=== PATIENT | male | born 1955 | race Caucasian/White ===

== ENCOUNTER → 2017-10-09 07:13 | Outpatient (CLI) | payer BC, OTHER, SELFPAY ==
[2017-10-09 08:50] LABS: AST(SGOT) 18 U/L (15-37); Alanine Aminotransfer ALT/SGPT 32 U/L (12-78); Albumin, Serum 3.4 g/dL (3.4-5.0); Alkaline Phosphatase 96 U/L (45-117); Bilirubin, Direct 0.17 mg/dL (0.00-0.30); Cholesterol 131 mg/dL (200); Globulin 3.5 g/dL (2.2-4.2); High Density Lipoprotein 35 mg/dL; Protein, Total 6.9 g/dL (6.4-8.2); Triglycerides 103 mg/dL; Very Low Density Lipoprotein 21 mg/dL (5-40)
== END ==
PROVIDERS: Family Provider Family Medicine; PCP Family Medicine; Visit Provider Internal Medicine Cardiovascular Disease
DX: E78.5 Hyperlipidemia, unspecified (principal)
CPT/HCPCS: 36415; 80061; 80076

== ENCOUNTER → 2018-01-04 10:48 | Outpatient (CLI) | payer BC, OTHER, SELFPAY ==
[2018-01-04 12:46] LABS: Glucose 145 mg/dL (74-106); PSA,Total - Annual Screen 2.37 ng/mL (0.00-4.00)
[2018-01-04 13:07] LABS: Hemoglobin A1c 7.8 % (4.2-6.3)
== END ==
PROVIDERS: Family Provider Family Medicine; PCP Family Medicine; Visit Provider Family Medicine
DX: E11.9 Type 2 diabetes mellitus without complications (principal); Z12.5 Encounter for screening for malignant neoplasm of prostate
CPT/HCPCS: 36415; 82947; 83036; 84153; G0103

== ENCOUNTER 2018-03-28 08:05 | Day surgery (SDC) | payer BC, OTHER, SELFPAY ==
[2018-03-28 08:25] LABS: Bedside Glucose 209 mg/dL (70-110)
[2018-03-28 08:30] VITALS: BP 105/64; PULSE 68; RESP 18; TEMP 36.3; O2SAT 95; BMI 53.4
--- NOTE | 2018-03-28 09:30 | RAD_ITS ---
PROCEDURE: Caudal block. DATE OF EXAMINATION: March 28, 2018 INDICATION: Male, 62 years old. Low back pain. FLUOROSCOPY TIME (if supplied): (0:07) minutes/seconds A caudal block was performed by the pain management physician. A spinal needle is seen overlying the posterior midportion of the sacrum. RAD/Fluor Guidance for Spine Inj IMPRESSION: Intraoperative imaging provided for caudal block. Electronically Signed: Abdirizak Markham MD at 15:39 EDT Tel [phone], Service support ,
[2018-03-28] MEDS: MethylPREDNISolone Acetate 80 MG/ML Vial (09:51)
[2018-03-28] MEDS: Bupivacaine 0.25% 30 ML Vial (09:51)
[2018-03-28 10:03] VITALS: BP 105/64; BP 112/65; PULSE 74; RESP 16; TEMP 36.8; O2SAT 94
[2018-03-28 10:05] VITALS: BP 105/64; BP 115/70; PULSE 74; RESP 16; O2SAT 93
[2018-03-28 10:10] VITALS: BP 105/64; BP 111/71; PULSE 72; RESP 16; O2SAT 93
[2018-03-28 10:18] VITALS: BP 105/64; BP 119/72; PULSE 71; RESP 16; TEMP 36.2; O2SAT 94
[2018-03-28 10:44] VITALS: BP 105/64
--- NOTE | 2018-03-28 11:28 | PCM.OPRPT ---
Problem List (1) Degeneration of intervertebral disc of lumbosacral region Status: Chronic (2) Radiculopathy of lumbosacral region Status: Chronic (3) Lumbosacral stenosis Status: Chronic Report of Operation Date of Procedure: 03/28/18 Pre-Operative Diagnosis: Lumbosacral radiculopathy, lumbosacral degenerative disc disease, lumbar sacral spinal stenosis Post-Operative Diagnosis: Lumbosacral radiculopathy, lumbosacral degenerative disc disease, lumbosacral spinal stenosis Surgery/Procedure Performed:: Diagnostic/therapeutic caudal epidural steroid injection Description of Surgical Findings:: PROCEDURE: Diagnostic/therapeutic caudal epidural steroid injection PREOPERATIVE DIAGNOSIS: Lumbosacral radiculopathy, lumbosacral degenerative disc disease, lumbosacral spinal stenosis POSTOPERATIVE DIAGNOSIS: Lumbosacral radiculopathy, lumbosacral degenerative disc disease, lumbosacral spinal stenosis ANESTHESIA: MAC COMPLICATIONS: None BLOOD LOSS: Minimal PROCEDURE IN DETAIL: History and physical today was reviewed. Risks and benefits of the procedure were explained. The patient understood, agreed to our procedure, and informed consent was obtained. IV inserted per routine protocol. The patient was taken to the operating room, placed in a prone position with a pillow positioned underneath the abdomen. The lower back and tailbone area was prepped and draped in a sterile fashion using iodine ?3 under fluoroscopy guidance on the lateral view the caudal space was identified skin and subcutaneous tissue anesthetized approximately 3 cc of 1% lidocaine using a 25-gauge regular needle under direct visualization with fluoroscopy on the lateral approach using a 22-gauge 3-1/2 inch spinal needle the needle was advanced via the skin through the sacral hiatus tip of the needle passed through the sacrococcygeal ligament advanced approximately S4 area after negative aspiration for blood or CSF a total of 3 cc of contrast were injected to confirm correct placement of the needle as well as cephalad spread the spread was followed to approximately L5 area after confirmation of AP as well as lateral view and repeated negative aspiration a total of 15 cc of preservative-free 0.125% Marcaine with 80 mg of Depo-Medrol were injected easily the needle was then removed intact patient experienced no sinus symptoms intrathecal or intravascular injection patient experienced no paresthesia the procedure was completed without any apparent difficulty any complication the patient appeared to tolerate well. ASSESSMENT AND PLAN: This is a 62-year-old male with lumbosacral radiculopathy, lumbosacral degenerative disc disease, lumbosacral spinal stenosis status post diagnostic/therapeutic caudal epidural steroid injection. The patient will continue her current medications. The patient will follow in approximately 2 weeks for possible repeat of the procedure if indicated.
--- NOTE | 2018-03-28 11:31 | OP.PCM_ITS ---
Problem List (1) Degeneration of intervertebral disc of lumbosacral region Status: Chronic (2) Radiculopathy of lumbosacral region Status: Chronic (3) Lumbosacral stenosis Status: Chronic Report of Operation Date of Procedure: 03/28/18 Pre-Operative Diagnosis: Lumbosacral radiculopathy, lumbosacral degenerative disc disease, lumbar sacral spinal stenosis Post-Operative Diagnosis: Lumbosacral radiculopathy, lumbosacral degenerative disc disease, lumbosacral spinal stenosis Surgery/Procedure Performed:: Diagnostic/therapeutic caudal epidural steroid injection Description of Surgical Findings:: PROCEDURE: Diagnostic/therapeutic caudal epidural steroid injection PREOPERATIVE DIAGNOSIS: Lumbosacral radiculopathy, lumbosacral degenerative disc disease, lumbosacral spinal stenosis POSTOPERATIVE DIAGNOSIS: Lumbosacral radiculopathy, lumbosacral degenerative disc disease, lumbosacral spinal stenosis ANESTHESIA: MAC COMPLICATIONS: None BLOOD LOSS: Minimal PROCEDURE IN DETAIL: History and physical today was reviewed. Risks and benefits of the procedure were explained. The patient understood, agreed to our procedure, and informed consent was obtained. IV inserted per routine protocol. The patient was taken to the operating room, placed in a prone position with a pillow positioned underneath the abdomen. The lower back and tailbone area was prepped and draped in a sterile fashion using iodine ?3 under fluoroscopy guidance on the lateral view the caudal space was identified skin and subcutaneous tissue anesthetized approximately 3 cc of 1 % lidocaine using a 25-gauge regular needle under direct visualization with fluoroscopy on the lateral approach using a 22-gauge 3-1/2 inch spinal needle the needle was advanced via the skin through the sacral hiatus tip of the needle passed through the sacrococcygeal ligament advanced approximately S4 area after negative aspiration for blood or CSF a total of 3 cc of contrast were injected to confirm correct placement of the needle as well as cephalad spread the spread was followed to approximately L5 area after confirmation of AP as well as lateral view and repeated negative aspiration a total of 15 cc of preservative-free 0.125% Marcaine with 80 mg of Depo-Medrol were injected easily the needle was then removed intact patient experienced no sinus symptoms intrathecal or intravascular injection patient experienced no paresthesia the procedure was completed without any apparent difficulty any complication the patient appeared to tolerate well. ASSESSMENT AND PLAN: This is a 62-year-old male with lumbosacral radiculopathy, lumbosacral degenerative disc disease, lumbosacral spinal stenosis status post diagnostic/ therapeutic caudal epidural steroid injection. The patient will continue her current medications. The patient will follow in approximately 2 weeks for possible repeat of the procedure if indicated.
== END 2018-03-28 10:45 | disposition home or self-care (01) ==
LOC: SDC 08:06 → AC 08:07
PROVIDERS: Family Provider Family Medicine; PCP Family Medicine; Visit Provider Anesthesiology Pain Medicine
PROC: 3E0S3BZ Introduction of Anesthetic Agent into Epidural Space, Percutaneous Approach (ICD-10-PCS; CPT 62282; principal; 2018-03-28 09:25)
DX: M51.17 Intervertebral disc disorders with radiculopathy, lumbosacral region (principal); M48.07 Spinal stenosis, lumbosacral region; I25.10 Atherosclerotic heart disease of native coronary artery without angina pectoris; E11.9 Type 2 diabetes mellitus without complications; E78.00 Pure hypercholesterolemia, unspecified; K21.9 Gastro-esophageal reflux disease without esophagitis; I73.9 Peripheral vascular disease, unspecified; M47.817 Spondylosis without myelopathy or radiculopathy, lumbosacral region; M46.96 Unspecified inflammatory spondylopathy, lumbar region; M79.1 Myalgia; Z79.899 Other long term (current) drug therapy; Z79.82 Long term (current) use of aspirin
CPT/HCPCS: 64483; 77003; 82962; J7120; J3490

== ENCOUNTER 2018-05-02 08:11 | Day surgery (SDC) | payer BC, OTHER, SELFPAY ==
[2018-05-02 08:35] VITALS: BP 133/84; PULSE 68; RESP 16; TEMP 36.4; O2SAT 98; BMI 53.9
[2018-05-02 08:46] LABS: Bedside Glucose 193 mg/dL (70-110)
[2018-05-02] MEDS: MethylPREDNISolone Acetate 80 MG/ML Vial (09:06)
[2018-05-02] MEDS: Bupivacaine 0.25% 30 ML Vial (09:06)
[2018-05-02 09:15] VITALS: BP 119/69; BP 133/84; PULSE 76; RESP 16; TEMP 37.3; O2SAT 97
[2018-05-02 09:20] VITALS: BP 123/61; BP 133/84; PULSE 72; RESP 16; O2SAT 95
[2018-05-02 09:25] VITALS: BP 120/68; BP 133/84; PULSE 71; RESP 16; O2SAT 95
[2018-05-02 09:30] VITALS: BP 132/80; BP 133/84; PULSE 70; RESP 16; TEMP 37.3; O2SAT 95
[2018-05-02 09:41] VITALS: BP 133/84
--- NOTE | 2018-05-02 11:22 | PCM.OPRPT ---
Problem List (1) Spondylosis of lumbosacral region without myelopathy or radiculopathy Status: Chronic (2) Degeneration of intervertebral disc of lumbosacral region Status: Chronic Report of Operation Date of Procedure: 05/02/18 Pre-Operative Diagnosis: Lumbosacral spondylosis, lumbosacral degenerative disc disease, lumbar facet arthropathy Post-Operative Diagnosis: Lumbosacral spondylosis, lumbosacral degenerative disc disease, lumbar facet arthropathy Surgery/Procedure Performed:: Left-sided lumbar facet steroid injection L3, L4, L5, S1 Description of Surgical Findings:: PROCEDURE: Left-sided lumbar facet steroid injection L3, L4, L5, S1 PREOPERATIVE DIAGNOSIS: Lumbosacral spondylosis, lumbosacral degenerative disc disease, lumbar facet arthropathy POSTOPERATIVE DIAGNOSIS: Lumbosacral spondylosis, lumbosacral degenerative disc disease, lumbar facet arthropathy ANESTHESIA: MAC COMPLICATIONS: None BLOOD LOSS: Minimal PROCEDURE IN DETAIL: History and physical today was reviewed. Risks and benefits of the procedure were explained. The patient understood, agreed to our procedure, and informed consent was obtained. IV inserted per routine protocol. The patient was taken to the operating room, placed in a prone position with a pillow positioned underneath the abdomen. The left side of his lower back was prepped and draped in a sterile fashion using iodine x3. Under fluoroscopy guidance, on AP view, L3 through S1 vertebral bodies were visualized. Skin and subcutaneous tissues were anesthetized with approximately 5 mL of 1% lidocaine using a 25-gauge regular needle. Under direct visualization with fluoroscopy at approximately 25-degree angle, starting on the left L3, ending on the left S1, passing through the L4-L5 using a 22-gauge 5-inch spinal needle, the needle was advanced via the skin. The tip of the needle was maneuvered and directed towards the superior and medial gutter of the transverse process at the vicinity of the medial branch. Once the tip of the needle was in contact with the bone, the needle pulled approximately 2 mm off the bone. After negative aspiration of blood with CSF and confirmation of AP as well as oblique view, a total of 8 mL of preservative-free 0.25% Marcaine with 80 mg of Depo-Medrol was injection in divided doses between those 4 levels. The needles were then removed intact. The patient experienced no signs or symptoms intrathecal, intravascular injection. The patient experienced no paraesthesia. The procedure was completed without any apparent difficult, any complication. The patient appeared to tolerate well. ASSESSMENT AND PLAN: This is a 62-year-old Male with Lumbosacral spondylosis, lumbosacral degenerative disc disease, lumbar facet arthropathy, status post left-sided lumbar facet steroid injection [id number] S1. The patient will continue his current medications. The patient will follow in approximately 2 weeks for possible repeat of the procedure if indicated.
== END 2018-05-02 09:58 | disposition home or self-care (01) ==
LOC: SDC 08:12 → AC 08:13
PROVIDERS: Family Provider Family Medicine; PCP Family Medicine; Visit Provider Anesthesiology Pain Medicine
PROC: 3E0T3BZ Introduction of Anesthetic Agent into Peripheral Nerves and Plexi, Percutaneous Approach (ICD-10-PCS; CPT 64493; principal; 2018-05-02 09:05)
DX: M47.817 Spondylosis without myelopathy or radiculopathy, lumbosacral region (principal); M51.37 Other intervertebral disc degeneration, lumbosacral region; M48.07 Spinal stenosis, lumbosacral region; M46.96 Unspecified inflammatory spondylopathy, lumbar region; I25.10 Atherosclerotic heart disease of native coronary artery without angina pectoris; E11.9 Type 2 diabetes mellitus without complications; E78.00 Pure hypercholesterolemia, unspecified; I45.10 Unspecified right bundle-branch block; K21.9 Gastro-esophageal reflux disease without esophagitis; I73.9 Peripheral vascular disease, unspecified; M19.90 Unspecified osteoarthritis, unspecified site; I10 Essential (primary) hypertension; E66.01 Morbid (severe) obesity due to excess calories; Z68.43 Body mass index [BMI] 50.0-59.9, adult; Z87.442 Personal history of urinary calculi; Z95.5 Presence of coronary angioplasty implant and graft; Z79.82 Long term (current) use of aspirin; Z79.84 Long term (current) use of oral hypoglycemic drugs; Z79.899 Other long term (current) drug therapy
CPT/HCPCS: 01992; 64493; 64494; 64495; 64483; 72100; 82962; J7120

== ENCOUNTER → 2018-05-14 09:45 | Outpatient (CLI) | payer BC, OTHER, SELFPAY ==
[2018-05-14 11:35] LABS: AST(SGOT) 15 U/L (15-37); Alanine Aminotransfer ALT/SGPT 30 U/L (16-61); Albumin, Serum 3.3 g/dL (3.2-5.0); Alkaline Phosphatase 103 U/L (45-117); Bilirubin, Direct 0.15 mg/dL (0.00-0.30); Cholesterol 136 mg/dL (200); Globulin 3.4 g/dL (2.2-4.2); High Density Lipoprotein 41 mg/dL; Protein, Total 6.7 g/dL (6.4-8.2); Triglycerides 94 mg/dL; Very Low Density Lipoprotein 19 mg/dL (5-40)
== END ==
PROVIDERS: Family Provider Family Medicine; PCP Family Medicine; Visit Provider Internal Medicine Cardiovascular Disease
DX: E78.5 Hyperlipidemia, unspecified (principal); Z79.899 Other long term (current) drug therapy
CPT/HCPCS: 36415; 80061; 80076

== ENCOUNTER → 2018-07-30 09:55 | Outpatient (CLI) | payer BC, OTHER, SELFPAY ==
[2018-07-30 09:55] VITALS: BMI 36.8
[2018-07-30 11:24] LABS: Anion Gap 7 (5-15); BUN 18 mg/dL (7-18); BUN/Creat Ratio 16.2 RATIO (10-20); Calcium,Total 8.4 mg/dL (8.5-10.1); Chloride 106 mmol/L (98-107); Cholesterol 128 mg/dL (200); Creatinine, Serum 1.11 mg/dL (0.70-1.30); EST Glomerular Filtration Rate 71 mL/min (>60); Est Glom Filt Rate - Afr Amer 86 mL/min (>60); Glucose 223 mg/dL (74-106); High Density Lipoprotein 34 mg/dL; Potassium 4.3 mmol/L (3.5-5.1); Sodium Level 138 mmol/L (136-145); Triglycerides 128 mg/dL; Very Low Density Lipoprotein 26 mg/dL (5-40)
[2018-07-30 11:28] LABS: Hemoglobin A1c 9.5 % (4.2-6.3)
== END ==
PROVIDERS: Family Provider Family Medicine; PCP Family Medicine; Referring Provider Family Medicine; Visit Provider Family Medicine
DX: E78.00 Pure hypercholesterolemia, unspecified (principal); E11.9 Type 2 diabetes mellitus without complications
CPT/HCPCS: 36415; 80048; 80061; 83036

== ENCOUNTER → 2019-01-21 08:54 | Outpatient (CLI) | payer BC, OTHER, SELFPAY ==
[2018-07-30 09:55] VITALS: BMI 36.8
[2019-01-21 10:42] LABS: Anion Gap 11 (5-15); BUN 18 mg/dL (7-18); BUN/Creat Ratio 16.5 RATIO (10-20); Calcium,Total 8.5 mg/dL (8.5-10.1); Chloride 103 mmol/L (98-107); Cholesterol 122 mg/dL (200); Creatinine, Serum 1.09 mg/dL (0.70-1.30); EST Glomerular Filtration Rate 72 mL/min (>60); Est Glom Filt Rate - Afr Amer 87 mL/min (>60); Glucose 190 mg/dL (74-106); Hemoglobin A1c 9.4 % (4.2-6.3); High Density Lipoprotein 36 mg/dL; PSA,Total - Annual Screen 1.56 ng/mL (0.00-4.00); Potassium 4.4 mmol/L (3.5-5.1); Sodium Level 137 mmol/L (136-145); Triglycerides 101 mg/dL; Very Low Density Lipoprotein 20 mg/dL (5-40)
== END ==
PROVIDERS: Family Provider Family Medicine; PCP Family Medicine; Referring Provider Family Medicine; Visit Provider Family Medicine
DX: I25.10 Atherosclerotic heart disease of native coronary artery without angina pectoris (principal); E11.9 Type 2 diabetes mellitus without complications; Z12.5 Encounter for screening for malignant neoplasm of prostate
CPT/HCPCS: 36415; 80048; 80061; 83036; 84153; G0103

== ENCOUNTER → 2019-08-14 09:59 | Outpatient (CLI) | payer OTHER, SELFPAY ==
[2019-05-25 16:07] VITALS: BMI 52.5
[2019-08-14 10:58] LABS: Hemoglobin A1c 6.7 % (4.2-6.3)
[2019-08-14 11:01] LABS: Anion Gap 7 (5-15); BUN 19 mg/dL (7-18); BUN/Creat Ratio 16.2 RATIO (10-20); Calcium,Total 8.7 mg/dL (8.5-10.1); Chloride 110 mmol/L (98-107); Cholesterol 144 mg/dL (200); Creatinine, Serum 1.17 mg/dL (0.70-1.30); EST Glomerular Filtration Rate 67 mL/min (>60); Est Glom Filt Rate - Afr Amer 80 mL/min (>60); Glucose 132 mg/dL (74-106); High Density Lipoprotein 39 mg/dL; Potassium 4.1 mmol/L (3.5-5.1); Sodium Level 141 mmol/L (136-145); Triglycerides 125 mg/dL; Very Low Density Lipoprotein 25 mg/dL (5-40)
== END ==
PROVIDERS: Family Medicine; Family Provider Family Medicine; PCP Family Medicine; Referring Provider Family Medicine; Visit Provider Family Medicine
DX: E78.00 Pure hypercholesterolemia, unspecified (principal); E11.9 Type 2 diabetes mellitus without complications
CPT/HCPCS: 36415; 80048; 80061; 83036

== ENCOUNTER → 2020-02-14 10:08 | Outpatient (CLI) | payer OTHER, SELFPAY ==
[2019-05-25 16:07] VITALS: BMI 52.5
[2020-02-14 12:58] LABS: Microalbumin,Random Urine 50.4 mg/L (NO RANGE EST.); Microalbumin:Creatinine Ratio 27.5 mg/g CRE (<30 mg/g CRE)
[2020-02-14 12:59] LABS: ALB/GLOB Ratio 0.9 RATIO (0.9-2.4); AST(SGOT) 14 U/L (15-37); Alanine Aminotransfer ALT/SGPT 23 U/L (16-61); Albumin, Serum 3.3 g/dL (3.2-5.0); Alkaline Phosphatase 99 U/L (45-117); Anion Gap 9 (5-15); BUN 18 mg/dL (7-18); BUN/Creat Ratio 15.1 RATIO (10-20); Calcium,Total 8.9 mg/dL (8.5-10.1); Chloride 104 mmol/L (98-107); Creatinine, Serum 1.19 mg/dL (0.70-1.30); EST Glomerular Filtration Rate 65 mL/min (>60); Est Glom Filt Rate - Afr Amer 79 mL/min (>60); Globulin 3.8 g/dL (2.2-4.2); Glucose 120 mg/dL (74-106); Potassium 4.1 mmol/L (3.5-5.1); Protein, Total 7.1 g/dL (6.4-8.2); Sodium Level 137 mmol/L (136-145)
[2020-02-14 13:08] LABS: Hemoglobin A1c 6.6 % (3.8-5.6)
== END ==
PROVIDERS: PCP Family Medicine; Visit Provider Family Medicine
DX: E11.9 Type 2 diabetes mellitus without complications (principal)
CPT/HCPCS: 36415; 80053; 82043; 82570; 83036

== ENCOUNTER → 2020-07-29 10:53 | Outpatient (CLI) | payer OTHER, SELFPAY ==
[2020-05-28 10:35] VITALS: BMI 53.6
--- NOTE | 2020-07-29 10:54 | ECHOCS_ITS ---
Reason For Study: dyspnea/sob Procedure This was a 2D Doppler, Color Flow transthoracic echocardiogram. The study was technically difficult. Due to mbody habitus. Contrast injection was performed. Exam performed in department. Left Ventricle Normal LV size. Mild concentric left ventricular hypertrophy. Left ventricular systolic function is normal. The estimated ejection fraction is 65 %. No regional wall motion abnormalities noted. Right Ventricle Normal RV size. Normal systolic function. Atria The left atrium is mildly enlarged. Normal right atrium. Mitral Valve Normal mitral valve. Tricuspid Valve Normal tricuspid valve. Aortic Valve The aortic valve is not well visualized. Great Vessels Normal aortic root. The pulmonary artery is normal size. Normal inferior vena cava. Pericardium/Pleural No pericardial effusion. Medication 22 gauge I.V. with prn adaptor inserted into right arm. Diluted definity 3.0ml given slow IV push to enhance endocardial definition. MMode/2D Measurements & Calculations LVIDd: 5.4 cm IVSd: 1.2 cm Ao root diam: 3.4 cm LVIDs: 3.9 cm LVPWd: 1.2 cm RVDd: 3.2 cm FS: 28.9 % LAV(MOD-bp): 66.9 ml LA A4 area: 21.9 cm2 LA dimension(2D): 4.2 cm LAV(MOD-bp) Indexed: 25.1 ml/m2 LAV(MOD-sp2): 64.4 ml LAV(MOD-sp4): 64.8 ml RA A4 area: 19.3 cm2 Time Measurements MV dec time: 0.16 sec Doppler Measurements & Calculations MV E max nikolas: 97.4 cm/sec Lat Peak E' Nikolas: 8.8 cm/sec Med Peak E' Nikolas: 9.2 cm/sec MV A max nikolas: 69.4 cm/sec E/E' lat: 11.0 E/E' med: 10.6 MV E/A: 1.4 Ao V2 max: 137.6 cm/sec LV V1 max: 96.7 cm/sec PA V2 max: 94.2 cm/sec Ao max P.6 mmHg LV V1 max P.7 mmHg Interpretation Summary Normal LV size. Left ventricular systolic function is normal. The estimated ejection fraction is 65 %. Mild concentric left ventricular hypertrophy. The left atrium is mildly enlarged. Contrast injection was performed. Ordering Physician: Eliseo Oconnor Referring Physician: Saman Wilcox Performed By: Emi Griggs, YOSEF, RVT
== END ==
PROVIDERS: PCP Family Medicine; Referring Provider Internal Medicine Cardiovascular Disease; Visit Provider Internal Medicine Cardiovascular Disease
DX: R06.02 Shortness of breath (principal); R06.00 Dyspnea, unspecified; I25.10 Atherosclerotic heart disease of native coronary artery without angina pectoris; I45.10 Unspecified right bundle-branch block; E78.00 Pure hypercholesterolemia, unspecified; I10 Essential (primary) hypertension; Z95.5 Presence of coronary angioplasty implant and graft
CPT/HCPCS: 93306; Q9957; A4216; C8929

== ENCOUNTER → 2020-09-17 09:19 | Outpatient (CLI) | payer OTHER, SELFPAY ==
[2020-05-28 10:35] VITALS: BMI 53.6
[2020-09-17 12:49] LABS: AST(SGOT) 15 U/L (15-37); Alanine Aminotransfer ALT/SGPT 26 U/L (16-61); Albumin, Serum 3.5 g/dL (3.2-5.0); Alkaline Phosphatase 94 U/L (45-117); Anion Gap 9 (5-15); BUN 19 mg/dL (7-18); BUN/Creat Ratio 15.4 RATIO (10-20); Calcium,Total 8.8 mg/dL (8.5-10.1); Chloride 105 mmol/L (98-107); Cholesterol 127 mg/dL (200); Creatinine, Serum 1.23 mg/dL (0.70-1.30); EST Glomerular Filtration Rate 63 mL/min (>60); Est Glom Filt Rate - Afr Amer 76 mL/min (>60); Globulin 3.4 g/dL (2.2-4.2); Glucose 118 mg/dL (74-106); High Density Lipoprotein 36 mg/dL; Potassium 4.2 mmol/L (3.5-5.1); Protein, Total 6.9 g/dL (6.4-8.2); Sodium Level 137 mmol/L (136-145); Triglycerides 115 mg/dL; Very Low Density Lipoprotein 23 mg/dL (5-40)
[2020-09-17 12:52] LABS: Hemoglobin A1c 6.3 % (3.8-5.6)
== END ==
PROVIDERS: PCP Family Medicine; Referring Provider Family Medicine; Visit Provider Family Medicine
DX: E11.9 Type 2 diabetes mellitus without complications (principal)
CPT/HCPCS: 36415; 80053; 80061; 83036

== ENCOUNTER → 2021-04-30 11:36 | Outpatient (CLI) | payer OTHER, SELFPAY ==
[2021-04-30 15:11] LABS: Absolute Lymphocyte Count 1.19 X10^3/uL (0.83-4.51); Absolute Neutrophil Count 5.1 X10^3/uL (2.0-7.7); Basophil# 0.04 X10^3/uL; Basophil% 0.5 % (0-1); Eosinophil# 0.38 X10^3/uL; Eosinophils% 5.2 % (0-5); Hematocrit 37.2 % (40-54); Hemoglobin 11.7 g/dL (13.0-16.5); Lymphocyte # 1.19 X10^3/ul (0.83-4.51); Lymphocyte % 16.2 % (19-41); Mean Corp Hgb Conc 31.5 g/dL (32-36); Mean Corpuscular Hgb 28.5 pg (27.0-32.0); Mean Corpuscular Volume 90.5 fL (80-94); Mean Platelet Vol. 11.9 fl (6.2-12.0); Monocyte# 0.58 X10^3/uL; Monocyte% 7.9 % (0-10); NRBC Flagged by Analyzer 0 % (0-5); Neutrophil # 5.12 X10^3/uL (2.7-7.7); Neutrophil % 69.8 % (47-70); Platelet Count 196 K/mm3 (150-450); RBC Distribution Width CV 15.3 % (11.6-14.6); RBC Distribution Width SD 50.4 fl (35.1-43.9); Red Blood Count 4.11 M/mm3 (4.6-6.2); White Blood Count 7.3 K/mm3 (4.4-11.0)
[2021-04-30 15:39] LABS: Microalbumin:Creatinine Ratio 47.2 mg/g CRE (<30 mg/g CRE)
[2021-04-30 15:46] LABS: AST(SGOT) 17 U/L (15-37); Alanine Aminotransfer ALT/SGPT 27 U/L (16-61); Albumin, Serum 3.4 g/dL (3.2-5.0); Alkaline Phosphatase 88 U/L (45-117); Anion Gap 9 (5-15); BUN 23 mg/dL (7-18); BUN/Creat Ratio 20.2 RATIO (10-20); Calcium,Total 8.5 mg/dL (8.5-10.1); Chloride 106 mmol/L (98-107); Cholesterol 136 mg/dL (200); Creatinine, Serum 1.14 mg/dL (0.70-1.30); EST Glomerular Filtration Rate 68 mL/min (>60); Est Glom Filt Rate - Afr Amer 82 mL/min (>60); Globulin 3.5 g/dL (2.2-4.2); Glucose 102 mg/dL (74-106); High Density Lipoprotein 37 mg/dL; Potassium 4.4 mmol/L (3.5-5.1); Protein, Total 6.9 g/dL (6.4-8.2); Sodium Level 137 mmol/L (136-145); Thyroid Stim Hormone (TSH) 0.89 uIU/mL (0.358-3.74); Triglycerides 111 mg/dL; Very Low Density Lipoprotein 22 mg/dL (5-40)
[2021-04-30 16:13] LABS: Hemoglobin A1c 6.2 % (3.8-5.6)
== END ==
PROVIDERS: PCP Family Medicine; Referring Provider Family Medicine; Visit Provider Family Medicine
DX: E11.9 Type 2 diabetes mellitus without complications (principal); Z12.5 Encounter for screening for malignant neoplasm of prostate
CPT/HCPCS: 36415; 80053; 80061; 82043; 82570; 83036; 84153; 84443; 85025; G0103

== ENCOUNTER → 2021-06-16 16:38 | Outpatient (CLI) | payer OTHER, SELFPAY | LOC: MFPLAB 16:42 → LABSPEC 16:57 | PROVIDERS: PCP Family Medicine; Referring Provider Family Medicine; Visit Provider Family Medicine | DX: U07.1 COVID-19 (principal) | CPT/HCPCS: 87635; U0005; U0003 ==

== ENCOUNTER 2021-06-18 12:15 | Outpatient (CLI) | payer OTHER, SELFPAY ==
[2021-06-18 12:30] VITALS: BP 125/58; PULSE 75; RESP 18; TEMP 36.6; O2SAT 98; BMI 53.1
[2021-06-18] MEDS: 0.9% Saline Lock 10 ML Syringe IV (12:46)
[2021-06-18 13:35] VITALS: BP 114/59; PULSE 74; RESP 16; TEMP 36.9; O2SAT 96
[2021-06-18 14:17] VITALS: BP 111/49; PULSE 73; RESP 16; TEMP 37.1; O2SAT 97
== END 2021-06-18 14:24 | disposition home or self-care (01) ==
LOC: MS3OUT 12:15 → MS3 12:16
PROVIDERS: PCP Family Medicine; Referring Provider Nurse Practitioner Adult Health; Visit Provider Nurse Practitioner Adult Health
DX: Z23 Encounter for immunization (principal); U07.1 COVID-19
CPT/HCPCS: J7050; M0243; A4216; Q0244

== ENCOUNTER → 2021-07-28 07:31 | Outpatient (CLI) | payer OTHER, SELFPAY ==
--- NOTE | 2021-07-28 11:43 | STRESSREP ---
Stress Test Report Pharmacologic myocardial perfusion stress test. 66-year-old male with a history of chest pain. Resting EKG demonstrates normal sinus rhythm with a right bundle branch block and a rate of 83 bpm. Resting blood pressure is 130/84 mmHg. 0.4 mg of regadenoson was infused per usual protocol followed by rapid intravenous and flush injection continuous EKG monitoring was performed. The maximum heart rate attained was 102 bpm which was 66% of max impact at heart rate the maximum workload was 1 metabolic equivalent. At rest there were no ST or T wave changes noted to suggest abnormal flow reserve and at peak infusion nonspecific ST changes were noted with did not meet the criteria for ischemia. No clinical angina was noted. The final blood pressure was 126/64 mmHg. Myocardial perfusion protocol. 15.0 mCi of technetium 99m sestamibi was injected at rest. 0.4 mg of regadenoson was infused per usual protocol. At peak infusion 44.9 mCi of technetium 99m sestamibi was injected stress images were obtained stress and rest images were reconstructed and compared in the short axis vertical long and horizontal long axis. Gated images were also obtained. Perfusion SPECT analysis: Review of the stress images demonstrate normal uptake of tracer noted in all areas of the myocardium. The resting images similarly demonstrate normal uptake of tracer noted in all areas of the myocardium. No areas of reversibility are noted to suggest ischemia and no previous infarct is noted. Gated SPECT analysis: The gated ejection fraction is 81%. Conclusion: Normal pharmacologic myocardial perfusion stress test. Preserved ejection fraction.
== END ==
PROVIDERS: PCP Family Medicine; Referring Provider Physician Assistant Medical; Visit Provider Physician Assistant Medical
DX: I25.10 Atherosclerotic heart disease of native coronary artery without angina pectoris (principal); I10 Essential (primary) hypertension
CPT/HCPCS: 78452; 93017; A9500; A4216; J2785

== ENCOUNTER 2021-11-04 15:41 | Outpatient (CLI) | payer OTHER, SELFPAY ==
[2021-11-04 17:52] LABS: Absolute Lymphocyte Count 1.19 X10^3/uL (0.83-4.51); Absolute Neutrophil Count 5.5 X10^3/uL (2.0-7.7); Basophil# 0.04 X10^3/uL; Basophil% 0.5 % (0-1); Eosinophil# 0.42 X10^3/uL; Eosinophils% 5.5 % (0-5); Hematocrit 36.2 % (40-54); Hemoglobin 11.2 g/dL (13.0-16.5); Lymphocyte # 1.19 X10^3/ul (0.83-4.51); Lymphocyte % 15.5 % (19-41); Mean Corp Hgb Conc 30.9 g/dL (32-36); Mean Corpuscular Hgb 28.4 pg (27.0-32.0); Mean Corpuscular Volume 91.6 fL (80-94); Mean Platelet Vol. 11.3 fl (6.2-12.0); Monocyte# 0.53 X10^3/uL; Monocyte% 6.9 % (0-10); NRBC Flagged by Analyzer 0 % (0-5); Neutrophil # 5.46 X10^3/uL (2.7-7.7); Neutrophil % 71.3 % (47-70); Platelet Count 191 K/mm3 (150-450); RBC Distribution Width CV 16.8 % (11.6-14.6); RBC Distribution Width SD 56.9 fl (35.1-43.9); Red Blood Count 3.95 M/mm3 (4.6-6.2); White Blood Count 7.7 K/mm3 (4.4-11.0)
[2021-11-04 18:26] LABS: Vitamin B12 232 pg/mL (211-911)
[2021-11-04 18:27] LABS: Hemoglobin A1c 5.6 % (3.8-5.6)
[2021-11-04 18:39] LABS: Microalbumin,Random Urine 12.6 mg/L (NO RANGE EST.); Microalbumin:Creatinine Ratio 9.6 mg/g CRE (<30 mg/g CRE)
[2021-11-04 18:52] LABS: ALB/GLOB Ratio 0.8 RATIO (0.9-2.4); AST(SGOT) 17 U/L (15-37); Alanine Aminotransfer ALT/SGPT 23 U/L (16-61); Albumin, Serum 3.3 g/dL (3.2-5.0); Alkaline Phosphatase 88 U/L (45-117); Anion Gap 7 (5-15); BUN 24 mg/dL (7-18); BUN/Creat Ratio 17.1 RATIO (10-20); Calcium,Total 8.7 mg/dL (8.5-10.1); Chloride 107 mmol/L (98-107); Cholesterol 125 mg/dL (200); EST Glomerular Filtration Rate 54 mL/min (>60); Est Glom Filt Rate - Afr Amer 65 mL/min (>60); Ferritin 32 ng/mL (26-388); Glucose 161 mg/dL (74-106); High Density Lipoprotein 38 mg/dL; Iron 47 ug/dL (65-175); Iron Binding Capacity,Total 287 ug/dL (250-450); Potassium 4.5 mmol/L (3.5-5.1); Protein, Total 7.3 g/dL (6.4-8.2); Sodium Level 138 mmol/L (136-145); Thyroid Stim Hormone (TSH) 0.89 uIU/mL (0.358-3.74); Triglycerides 100 mg/dL; Very Low Density Lipoprotein 20 mg/dL (5-40)
== END 2021-11-04 23:59 | disposition home or self-care (01) ==
PROVIDERS: PCP Family Medicine; Referring Provider Family Medicine; Visit Provider Family Medicine
DX: D64.9 Anemia, unspecified (principal); E11.69 Type 2 diabetes mellitus with other specified complication
CPT/HCPCS: 36415; 80053; 80061; 82043; 82570; 82607; 82728; 82746; 83036; 83540; 83550; 84443; 85025

== ENCOUNTER 2021-11-25 14:06 | Outpatient (CLI) | payer OTHER, SELFPAY ==
--- NOTE | 2021-11-25 14:09 | ART_ITS ---
Reason For Study: decreased pedal pulses Procedure A bilateral lower extremity continuous wave Doppler with analog waveform analysis,segmental pressures,and ankle brachial indexes without exercise. Did not exercise pt. Pt walks with a cane. Tip brachial pressure taken 2X. Left Segmental Pressures Left brachial= 137mmHg. Left posterior tibial artery = 178mmHg. Left dorsalis pedis artery = 157mmHg. Left digit = 158 mmHg. The left dorsalis pedis waveforms are triphasic. The left posterior tibial artery waveforms are triphasic. Right Segmental Pressures Right brachial= 153mmHg. Right posterior tibial artery = 167mmHg. Right dorsalis pedis artery = 154mmHg. Right digit = 159 mmHg. The right dorsalis pedis waveforms are triphasic. The right posterior tibial artery waveforms are triphasic. Indices The right ankle brachial index by the posterior tibial artery is 1.09. The right ankle brachial index by the dorsalis pedis is 1.01. The right digital-brachial index is 1.04. The left ankle brachial index by the posterior tibial artery is 1.16. The left ankle brachial index by the dorsalis pedis is 1.03. The left digital-brachial index is 1.03. VL/Lower Ext Art Exam w/o Exercis Interpretation Summary Triphasic Doppler waveforms are noted at ankle level bilaterally. Pulse-volume recordings appear satisfactory at all levels bilaterally. Resting ankle-brachial indices are norm al bilaterally. Digital-brachial indices are normal bilaterally. There is no evidence of significant arterial occlusive disease in the lower ext remities bilaterally. Ordering Physician: Saman Soria Performed By: Dennis Price RVT
== END 2021-11-25 23:59 | disposition home or self-care (01) ==
LOC: CVS 14:08
PROVIDERS: PCP Family Medicine; Referring Provider Family Medicine; Visit Provider Family Medicine
DX: R09.89 Other specified symptoms and signs involving the circulatory and respiratory systems (principal)
CPT/HCPCS: 93923

== ENCOUNTER 2021-12-16 14:46 | Outpatient (CLI) | payer OTHER, SELFPAY ==
[2021-12-16 17:50] LABS: Absolute Lymphocyte Count 0.92 X10^3/uL (0.83-4.51); Absolute Neutrophil Count 4.7 X10^3/uL (2.0-7.7); Basophil# 0.03 X10^3/uL; Basophil% 0.4 % (0-1); Eosinophils% 5.9 % (0-5); Hematocrit 36.8 % (40-54); Hemoglobin 11.2 g/dL (13.0-16.5); Lymphocyte # 0.92 X10^3/ul (0.83-4.51); Lymphocyte % 13.6 % (19-41); Mean Corp Hgb Conc 30.4 g/dL (32-36); Mean Corpuscular Hgb 28.7 pg (27.0-32.0); Mean Corpuscular Volume 94.4 fL (80-94); Mean Platelet Vol. 11.9 fl (6.2-12.0); Monocyte% 10.3 % (0-10); NRBC Flagged by Analyzer 0 % (0-5); Neutrophil # 4.69 X10^3/uL (2.7-7.7); Neutrophil % 69.4 % (47-70); Platelet Count 184 K/mm3 (150-450); RBC Distribution Width CV 15.6 % (11.6-14.6); RBC Distribution Width SD 53.8 fl (35.1-43.9); White Blood Count 6.8 K/mm3 (4.4-11.0)
[2021-12-16 18:29] LABS: Ferritin 29 ng/mL (26-388); Iron 55 ug/dL (65-175); Iron Binding Capacity,Total 306 ug/dL (250-450)
== END 2021-12-16 23:59 | disposition home or self-care (01) ==
LOC: MFPLAB 14:50
PROVIDERS: PCP Family Medicine; Referring Provider Family Medicine; Visit Provider Family Medicine
DX: D64.9 Anemia, unspecified (principal)
CPT/HCPCS: 36415; 82728; 83540; 83550; 85025

== ENCOUNTER → 2022-01-07 | Outpatient (CLI) | payer OTHER, SELFPAY ==
--- NOTE | 2022-01-07 14:06 | CT_ITS ---
EXAM: CT ABDOMEN AND PELVIS WITH INTRAVENOUS CONTRAST CLINICAL INDICATION: rule out diverticulitis; hernia TECHNIQUE: Helically acquired images were obtained of the abdomen and pelvis with intravenous contrast. This CT exam was performed using one or more of the following dose reduction techniques: automated exposure control, adjustment of the mA and/or kV according to patient size, and/or use of iterative reconstruction technique. This report was created using [employer] report generation technology. CONTRAST: 100CC ISOVUE 300 COMPARISON: May 25, 2012 FINDINGS: LOWER THORAX: Unremarkable. Lung bases are clear. No cardiomegaly. No significant pericardial effusion. ABDOMEN: LIVER: Unremarkable. Homogeneous. No focal mass. GALLBLADDER AND BILE DUCTS: Small calcified stones are present within the gallbladder. PANCREAS: Unremarkable. No focal cystic or solid mass. SPLEEN: Unremarkable. Normal size without focal cystic or solid mass. ADRENALS: Unremarkable. No nodules. KIDNEYS AND URETERS: 5.5 mm stone noted within the lower pole of left kidney. Subcentimeter left renal cysts. No specific follow-up recommended. No hydronephrosis. STOMACH AND BOWEL: Diffuse wall thickening of the descending and proximal sigmoid colon noted suggestive of colitis. This portion of the large bowel not well seen on this exam. Sigmoid diverticula noted without discrete evidence of acute cholecystitis. PELVIS: APPENDIX: No evidence of acute appendicitis. BLADDER: Urinary bladder is decompressed. REPRODUCTIVE: Unremarkable as visualized. No mass. ABDOMEN and PELVIS: INTRAPERITONEAL SPACE: Unremarkable. No ascites or other fluid collection. No free air. BONES/JOINTS: Unremarkable. No suspicious lytic or blastic abnormality. SOFT TISSUES: Unremarkable. No discrete abdominal or pelvic wall hernia. VASCULATURE: Unremarkable. Abdominal aorta is non-dilated. LYMPH NODES: 12 mm lymph node present visualized lower posterior mediastinum adjacent to the distal esophagus. Resolution of the previously noted intra-abdominal lymphadenopathy. CT/Abdomen/Pelvis WITH Contrast IMPRESSION: 1. Long segment of wall thickening of the left colon suggestive of colitis, suboptimally visualized. 2. Cholelithiasis. 3. Left nephrolithiasis. Electronically Signed: Sean Conroy MD at 16:54 EDT Reading Location ID and State: [facility] / [place] Tel , Service support ,
== END | disposition home or self-care (01) ==
LOC: CT 14:04
PROVIDERS: PCP Family Medicine; Referring Provider Nurse Practitioner Family; Visit Provider Nurse Practitioner Family
DX: K57.92 Diverticulitis of intestine, part unspecified, without perforation or abscess without bleeding (principal)
CPT/HCPCS: 74177; Q9967

== ENCOUNTER → 2022-01-07 | Outpatient (CLI) | payer OTHER, SELFPAY ==
[2022-01-07 15:25] LABS: Absolute Lymphocyte Count 0.85 X10^3/uL (0.83-4.51); Absolute Neutrophil Count 10.5 X10^3/uL (2.0-7.7); Basophil# 0.04 X10^3/uL; Basophil% 0.3 % (0-1); Eosinophil# 0.18 X10^3/uL; Eosinophils% 1.5 % (0-5); Hematocrit 36.4 % (40-54); Hemoglobin 11.7 g/dL (13.0-16.5); Lymphocyte # 0.85 X10^3/ul (0.83-4.51); Lymphocyte % 6.9 % (19-41); Mean Corp Hgb Conc 32.1 g/dL (32-36); Mean Corpuscular Volume 90.1 fL (80-94); Monocyte# 0.76 X10^3/uL; Monocyte% 6.1 % (0-10); NRBC Flagged by Analyzer 0 % (0-5); Neutrophil # 10.51 X10^3/uL (2.7-7.7); Neutrophil % 84.7 % (47-70); Platelet Count 190 K/mm3 (150-450); RBC Distribution Width CV 14.7 % (11.6-14.6); RBC Distribution Width SD 48.4 fl (35.1-43.9); Red Blood Count 4.04 M/mm3 (4.6-6.2); White Blood Count 12.4 K/mm3 (4.4-11.0)
[2022-01-07 15:52] LABS: ALB/GLOB Ratio 0.7 RATIO (0.9-2.4); AST(SGOT) 24 U/L (15-37); Alanine Aminotransfer ALT/SGPT 48 U/L (16-61); Alkaline Phosphatase 110 U/L (45-117); Anion Gap 9 (5-15); BUN 19 mg/dL (7-18); BUN/Creat Ratio 12.1 RATIO (10-20); Calcium,Total 8.5 mg/dL (8.5-10.1); Chloride 105 mmol/L (98-107); Creatinine, Serum 1.57 mg/dL (0.70-1.30); EST Glomerular Filtration Rate 47 mL/min (>60); Est Glom Filt Rate - Afr Amer 57 mL/min (>60); Globulin 4.1 g/dL (2.2-4.2); Glucose 377 mg/dL (74-106); Potassium 4.1 mmol/L (3.5-5.1); Protein, Total 7.1 g/dL (6.4-8.2); Sodium Level 137 mmol/L (136-145)
== END | disposition home or self-care (01) ==
LOC: MFPLAB 11:52
PROVIDERS: PCP Family Medicine; Referring Provider Family Medicine; Visit Provider Nurse Practitioner Family
DX: K57.92 Diverticulitis of intestine, part unspecified, without perforation or abscess without bleeding (principal)
CPT/HCPCS: 36415; 80053; 85025

== ENCOUNTER → 2022-01-16 | Outpatient (CLI) | payer OTHER, SELFPAY ==
[2022-01-16 15:19] LABS: Anion Gap 10 (5-15); BUN 15 mg/dL (7-18); BUN/Creat Ratio 10.9 RATIO (10-20); Calcium,Total 8.5 mg/dL (8.5-10.1); Chloride 106 mmol/L (98-107); Creatinine, Serum 1.37 mg/dL (0.70-1.30); EST Glomerular Filtration Rate 55 mL/min (>60); Est Glom Filt Rate - Afr Amer 67 mL/min (>60); Glucose 245 mg/dL (74-106); Potassium 4.4 mmol/L (3.5-5.1); Sodium Level 137 mmol/L (136-145)
== END | disposition home or self-care (01) ==
LOC: MFPLAB 12:29
PROVIDERS: Nurse Practitioner Family; PCP Family Medicine; Referring Provider Family Medicine; Visit Provider Family Medicine
DX: K52.9 Noninfective gastroenteritis and colitis, unspecified (principal)
CPT/HCPCS: 36415; 80048

== ENCOUNTER → 2022-01-20 | Outpatient (CLI) | payer OTHER, SELFPAY ==
--- NOTE | 2022-01-20 13:45 | MRI_ITS ---
EXAM: MR HEAD WITHOUT AND WITH INTRAVENOUS CONTRAST, INTERNAL AUDITORY CANAL PROTOCOL CLINICAL INDICATION: LEFT tinnitus -- LEFT hearing loss TECHNIQUE: Multiplanar and multisequence MR images of the internal auditory canal were obtained without and with intravenous contrast. This report was created using [employer] report [employer] technology. CONTRAST: IV 30ml Dotarem COMPARISON: None. FINDINGS: CRANIAL NERVES: Unremarkable. No mass. No abnormal enhancement. COCHLEA AND SEMICIRCULAR CANALS: Unremarkable. CEREBELLOPONTINE ANGLES: Unremarkable. No mass. BRAIN AND EXTRA-AXIAL SPACES: Prominence of the cortical sulci and ventricles consistent with volume loss change. No intra- or extra-axial hemorrhage. No intracranial mass or mass effect. There is preservation of the dhillon/white matter interface. Posterior fossa structures are unremarkable. Basal cisterns are patent. BONES/JOINTS: Unremarkable. No discrete lytic or blastic abnormalities. LYMPH NODES: 3.2 x 3.2 x 1.9 cm lesion noted medial to the left parotid gland and posterior to the right mandibular angle demonstrating abnormal contrast enhancement and associated with edema of the adjacent tissues. Lesion contains two 7 mm regions of nonenhancement which may represent abscess formation or necrosis. Finding may represent infected cervical lymph noted. Neoplasm not entirely excluded. SINUSES: Unremarkable as visualized. Clear. MASTOID AIR CELLS: Unremarkable as visualized. Clear. ORBITS: Unremarkable as visualized. Both globes, extraocular muscles, optic nerves and retrobulbar fat appear unremarkable. MRI/Brain W/WO Contrast IMPRESSION: 1. 3.2 x 3.2 x 1.9 cm lesion involving the left parotid space which may represent superadded adenitis or neoplasm. 2. Normal appearance of the temporal bone structures and posterior fossa. 3. Volume loss changes of the brain. Electronically Signed: Sean Conroy MD at 15:34 EDT ,
== END | disposition home or self-care (01) ==
LOC: MRI 13:14
PROVIDERS: PCP Family Medicine; Visit Provider Otolaryngology
DX: H93.12 Tinnitus, left ear (principal); H90.3 Sensorineural hearing loss, bilateral
CPT/HCPCS: 70553; A9575

== ENCOUNTER → 2022-02-11 | Outpatient (CLI) | payer OTHER, SELFPAY ==
[2022-02-11 10:14] LABS: Bacteria 0 SEEN /hpf (None Seen); Mucous, Urine 0 SEEN /hpf (<or=2+); Red Blood Cells-Urine 0 SEEN /hpf (0-5); Squamous Epithelial Cells - UA 0 SEEN /hpf (0-5); White Blood Cells 0 SEEN /hpf (0-5)
[2022-02-11 12:19] LABS: Absolute Lymphocyte Count 0.98 X10^3/uL (0.83-4.51); Absolute Neutrophil Count 4.6 X10^3/uL (2.0-7.7); Basophil# 0.03 X10^3/uL; Basophil% 0.5 % (0-1); Eosinophil# 0.36 X10^3/uL; Eosinophils% 5.4 % (0-5); Hematocrit 37.4 % (40-54); Lymphocyte # 0.98 X10^3/ul (0.83-4.51); Lymphocyte % 14.8 % (19-41); Mean Corp Hgb Conc 32.1 g/dL (32-36); Mean Corpuscular Hgb 28.4 pg (27.0-32.0); Mean Corpuscular Volume 88.4 fL (80-94); Mean Platelet Vol. 12.2 fl (6.2-12.0); Monocyte# 0.59 X10^3/uL; Monocyte% 8.9 % (0-10); NRBC Flagged by Analyzer 0 % (0-5); Neutrophil # 4.63 X10^3/uL (2.7-7.7); Neutrophil % 70.1 % (47-70); Platelet Count 165 K/mm3 (150-450); RBC Distribution Width CV 15.8 % (11.6-14.6); RBC Distribution Width SD 50.4 fl (35.1-43.9); Red Blood Count 4.23 M/mm3 (4.6-6.2); White Blood Count 6.6 K/mm3 (4.4-11.0)
[2022-02-11 12:22] LABS: Color, Urine Yellow (Yellow); Glucose, Dipstick 250 mg/dl (Normal); Ketone-Dipstick 5 mg/dl (Negative); Leukocyte Esterase-Dipstick Negative /ul (Negative); Nitrite-Dipstick Negative (Negative); Occult Blood-Urine 10 /ul (Negative); Protein-Dipstick 30 mg/dl (Negative); Specific Gravity, Urine 1.025 (1.002-1.030); Urine Bilirubin Dipstick Negative (Negative); Urine Clarity Sl. Cloudy (Clear); Urine Urobilinogen Normal (Normal)
[2022-02-11 12:47] LABS: Protein, Urine (Random) 59.7 mg/dL (<11.9); Protein:Creat Ratio 220 mg/g CRE (0-200)
[2022-02-11 12:51] LABS: Hemoglobin A1c 8.9 % (3.8-5.6)
[2022-02-11 12:55] LABS: AST(SGOT) 23 U/L (15-37); Alanine Aminotransfer ALT/SGPT 47 U/L (16-61); Albumin, Serum 3.4 g/dL (3.2-5.0); Alkaline Phosphatase 123 U/L (45-117); Anion Gap 12 (5-15); BUN 16 mg/dL (7-18); BUN/Creat Ratio 11.6 RATIO (10-20); Calcium,Total 8.5 mg/dL (8.5-10.1); Chloride 104 mmol/L (98-107); Cholesterol 138 mg/dL (200); Creatinine, Serum 1.38 mg/dL (0.70-1.30); EST Glomerular Filtration Rate 55 mL/min (>60); Est Glom Filt Rate - Afr Amer 66 mL/min (>60); Ferritin 49 ng/mL (26-388); Globulin 3.3 g/dL (2.2-4.2); Glucose 299 mg/dL (74-106); High Density Lipoprotein 36 mg/dL; Iron 53 ug/dL (65-175); Iron Binding Capacity,Total 242 ug/dL (250-450); Phosphorus 3.1 mg/dL (2.5-4.9); Potassium 4.6 mmol/L (3.5-5.1); Protein, Total 6.7 g/dL (6.4-8.2); Sodium Level 136 mmol/L (136-145); Triglycerides 163 mg/dL; Very Low Density Lipoprotein 33 mg/dL (5-40)
== END | disposition home or self-care (01) ==
PROVIDERS: PCP Family Medicine; Referring Provider Family Medicine; Visit Provider Family Medicine
DX: D64.9 Anemia, unspecified (principal); E11.22 Type 2 diabetes mellitus with diabetic chronic kidney disease; N18.30 Chronic kidney disease, stage 3 unspecified
CPT/HCPCS: 36415; 80053; 80061; 81001; 82306; 82570; 82728; 83036; 83540; 83550; 83970; 84100; 84156; 85025

== ENCOUNTER → 2022-02-19 | Outpatient (CLI) | payer OTHER, SELFPAY ==
--- NOTE | 2022-02-19 14:38 | CT_ITS ---
EXAM: CT NECK WITH INTRAVENOUS CONTRAST CLINICAL INDICATION: L PAROTID MASS VS INFECTION Technologist Notes LT MASS BEHIND EAR, AOI MARKED WITH BB, JUST FINISHED ATB 2 WKS AGO, TENDER TO TOUCH, HEART STENT, DB, HTN TECHNIQUE: Helically acquired images were obtained of the neck with intravenous contrast. This CT exam was performed using one or more of the following dose reduction techniques: automated exposure control, adjustment of the mA and/or kV according to patient size, and/or use of iterative reconstruction technique. This report was created using [employer] report [employer] technology. CONTRAST: IV 75mL Isovue-370 RADIATION DOSE: CTDIvol = 20.70 mGy, DLP = 615.44 mGy-cm COMPARISON: None. FINDINGS: NASOPHARYNX: Unremarkable. SUPRAHYOID NECK: Unremarkable. Oropharynx, oral cavity, parapharyngeal space and retropharyngeal space are unremarkable. INFRAHYOID NECK: Unremarkable. The larynx, hypopharynx and supraglottis are unremarkable. SUBMANDIBULAR/PAROTID GLANDS: Unremarkable. Glands are normal in size. THYROID: The thyroid is heterogenous. It contains nodules. This should be further evaluated with ultrasound. This can be performed as an outpatient. BONES/JOINTS: There are degenerative findings of the cervical spine. No acute fracture. SOFT TISSUES: Unremarkable. VASCULATURE: No acute findings. LYMPH NODES: There is diffuse fatty replacement of the right and left parotid gland. At the level of the marker on the left side, there is no visualized mass. However, within the fatty-replaced the parotid gland there is a 5.6 cm lymph node. Benign-appearing subcentimeter lymph nodes throughout the neck. LUNG APICES: Unremarkable as visualized. CT/Soft Tissue Neck WITH Contrast IMPRESSION: 1. The thyroid is heterogenous. It contains nodules. This should be further evaluated with ultrasound. This can be performed as an outpatient. 2. There is diffuse fatty replacement of the right and left parotid gland. At the level of the marker on the left side, there is no visualized mass. However, within the fatty-replaced the parotid gland there is a 5.6 cm lymph node. Electronically Signed: Ryan Dee MD at 18:00 EDT ,
== END | disposition home or self-care (01) ==
LOC: CT 14:34
PROVIDERS: PCP Family Medicine; Visit Provider Otolaryngology
DX: E04.2 Nontoxic multinodular goiter (principal)
CPT/HCPCS: 70491; Q9967; A4216

== ENCOUNTER → 2022-04-10 | Outpatient (CLI) | payer OTHER, SELFPAY ==
[2022-04-10 18:11] LABS: Absolute Lymphocyte Count 0.86 X10^3/uL (0.83-4.51); Absolute Neutrophil Count 4.2 X10^3/uL (2.0-7.7); Basophil# 0.04 X10^3/uL; Basophil% 0.7 % (0-1); Eosinophil# 0.34 X10^3/uL; Eosinophils% 5.7 % (0-5); Hematocrit 38.7 % (40-54); Hemoglobin 12.3 g/dL (13.0-16.5); Lymphocyte # 0.86 X10^3/ul (0.83-4.51); Lymphocyte % 14.5 % (19-41); Mean Corp Hgb Conc 31.8 g/dL (32-36); Mean Corpuscular Hgb 29.9 pg (27.0-32.0); Mean Corpuscular Volume 94.2 fL (80-94); Mean Platelet Vol. 12.1 fl (6.2-12.0); Monocyte# 0.53 X10^3/uL; Monocyte% 8.9 % (0-10); NRBC Flagged by Analyzer 0 % (0-5); Neutrophil # 4.15 X10^3/uL (2.7-7.7); Neutrophil % 69.7 % (47-70); Platelet Count 159 K/mm3 (150-450); RBC Distribution Width CV 17.3 % (11.6-14.6); Red Blood Count 4.11 M/mm3 (4.6-6.2)
[2022-04-10 18:21] LABS: Ferritin 37 ng/mL (26-388); Iron 60 ug/dL (65-175); Iron Binding Capacity,Total 270 ug/dL (250-450)
== END | disposition home or self-care (01) ==
LOC: MFPLAB 14:54
PROVIDERS: PCP Family Medicine; Referring Provider Family Medicine; Visit Provider Family Medicine
DX: D64.9 Anemia, unspecified (principal)
CPT/HCPCS: 36415; 82728; 83540; 83550; 85025

== ENCOUNTER → 2022-05-01 | Outpatient (CLI) | payer OTHER, SELFPAY | END | disposition home or self-care (01) | LOC: PSN 12:04 | PROVIDERS: PCP Family Medicine; Referring Provider Otolaryngology; Visit Provider Otolaryngology | DX: Z01.818 Encounter for other preprocedural examination (principal); C07 Malignant neoplasm of parotid gland | CPT/HCPCS: 87635; C9803; U0003; U0005 ==

== ENCOUNTER → 2022-05-20 | Outpatient (CLI) | payer OTHER, SELFPAY ==
[2022-05-20 17:51] LABS: Absolute Lymphocyte Count 1.14 X10^3/uL (0.83-4.51); Absolute Neutrophil Count 5.9 X10^3/uL (2.0-7.7); Basophil# 0.06 X10^3/uL; Basophil% 0.7 % (0-1); Eosinophil# 0.46 X10^3/uL; Eosinophils% 5.6 % (0-5); Hematocrit 38.8 % (40-54); Hemoglobin 12.1 g/dL (13.0-16.5); Lymphocyte # 1.14 X10^3/ul (0.83-4.51); Lymphocyte % 13.9 % (19-41); Mean Corp Hgb Conc 31.2 g/dL (32-36); Mean Corpuscular Hgb 29.3 pg (27.0-32.0); Mean Corpuscular Volume 93.9 fL (80-94); Mean Platelet Vol. 12.3 fl (6.2-12.0); Monocyte# 0.62 X10^3/uL; Monocyte% 7.6 % (0-10); NRBC Flagged by Analyzer 0 % (0-5); Neutrophil # 5.87 X10^3/uL (2.7-7.7); Neutrophil % 71.8 % (47-70); Platelet Count 197 K/mm3 (150-450); RBC Distribution Width SD 54.7 fl (35.1-43.9); Red Blood Count 4.13 M/mm3 (4.6-6.2); White Blood Count 8.2 K/mm3 (4.4-11.0)
[2022-05-20 18:48] LABS: Vitamin B12 308 pg/mL (211-911)
[2022-05-20 18:51] LABS: Ferritin 31 ng/mL (26-388); Iron 44 ug/dL (65-175); Iron Binding Capacity,Total 295 ug/dL (250-450); PERCENT IRON SATURATION 14.9 % (15.0-55.0)
== END | disposition home or self-care (01) ==
LOC: MFPLAB 16:41
PROVIDERS: PCP Family Medicine; Referring Provider Family Medicine; Visit Provider Family Medicine
DX: D64.9 Anemia, unspecified (principal)
CPT/HCPCS: 36415; 82607; 82728; 82746; 83540; 83550; 85025

== ENCOUNTER 2022-06-01 10:28 | Outpatient (RCR) | payer OTHER, SELFPAY ==
[2022-06-01 12:30] LABS: Creatinine, Serum 1.54 mg/dL (0.70-1.30); EST Glomerular Filtration Rate 48 mL/min (>60); Est Glom Filt Rate - Afr Amer 58 mL/min (>60)
== END 2022-06-12 23:59 ==
LOC: PSN 10:28
PROVIDERS: PCP Family Medicine; Referring Provider Otolaryngology; Visit Provider Student in an Organized Health Care Education/Training Program
DX: Z01.818 Encounter for other preprocedural examination (principal); R59.0 Localized enlarged lymph nodes; H02.539 Eyelid retraction unspecified eye, unspecified lid
CPT/HCPCS: 77014; 82565; 87635; C9803; A4216; U0003; U0005

== ENCOUNTER → 2022-06-05 | Outpatient (CLI) | payer OTHER, SELFPAY ==
--- NOTE | 2022-06-05 13:50 | ST.MBS ---
Modified Barium Swallow - Patient Information Study Date: 06/05/22 Study Time: 13:00 Direct Billable Minutes: 90 Total Minutes procedure & reportin Diagnosis: Carcinoma of parotid gland (C07) Referring Physician: Florin Mar Reason for Referral: Objectively assess swallow function, risk for aspiration, and determine recommendations for least restrictive diet textures and compensatory strategies to improve safety of swallow. 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 No PEG. He is planned for radiation treatment. Per patient, 06/03/2022 he is planned for biopsy of lung. He is planning to have a surgery for placing a weight in his eyelid after radiation. He is possibly having additional surgery after radiation to address facial paralysis. Per patient's description of surgeries, the MEDICAL INSTRUCTOR believes the pt may be considering cross-facial nerve graft vs. nerve to masseter graft. He is awaiting results of lung biopsy. Following BSE with MEDICAL INSTRUCTOR, the patient was recommended for MBSS to further assess swallow function and aspiration risk. Current Diet Ordered: Regular textures / Thin liquids Dentition: WNL, Missing Teeth Mental Status: WNL Respiratory Status: Oxygenating on Room Air - Penetration-Aspiration Scale Penetration-Aspiration Scale: OBJECTIVE ASSESSMENT OF SWALLOW FUNCTION (QUANTITATIVE ? PER TRIAL): PENETRATION / ASPIRATION SCALE (HARMAN): 1 = does not enter airway 2 = enters airway/above vocal folds/ejected 3 = enters airway/above vocal folds/not ejected 4 = enters airway/contacts vocal folds/ejected 5 = enters airway/contacts vocal folds/not ejected 6 = enters airway/below vocal folds/ejected 7 = enters airway/below vocal folds/not ejected despite effort 8 = enters airway/below vocal folds/no effort VIDEOFLOROSCOPIC SCALE SCORE (HARMAN): Grade I = aspiration of material that has penetrated into the laryngeal vestibule, intact cough reflex Grade II = aspiration < 10 % of the bolus, intact cough reflex Grade III = aspiration of < 10 % of the bolus, reduced cough reflex or aspiration of > 10 % of the bolus, intact cough reflex Grade IV = aspiration of > 10 % of the bolus, reduced cough reflex - Penetration-Aspiration Scale Score Thin Liquid via teaspoon Result: 1= does not enter airway Thin Liquid via teaspoon Trial 2 Result: 1= does not enter airway Thin Liquid via sequential sips from cup Result: 2= enter airway/above vocal folds/ejected Thin Liquid via large single sip from cup Result: 1= does not enter airway [place] Thick Liquid via small single sip from cup Result: 1= does not enter airway [place] Thick Liquid via small single sip from cup Result: 1= does not enter airway Pudding via teaspoon Result: 1= does not enter airway 1/2 Cookie Result: 1= does not enter airway Thin Liquid via sequential sips from straw cued cough and re-swallow Result: 3= enters airways/above vocal folds/not ejected - laryngeal penetration on 3rd swallow Comment: Cough effectively cleared laryngeal vestibule - Oral Phase Labial Seal: Interlabial escape, no progression to anterior lip Tongue Control During Bolus Hold: Posterior escape of less than half of bolus Bolus Preparation/Mastication: Slow prolonged chewing/mashing with complete recollection Bolus Transport/Lingual Motion: Delayed initiation of tongue motion Oral Residue: Trace residue lining oral structures - Pharyngeal Phase Initiation of Pharyngeal Swallow: Bolus head in pyriforms Soft Palate Elevation: No bolus between soft palate and pharyngeal wall Laryngeal Elevation: Partial superior movement thyroid cart/partial apprx aryt-epig petiole Anterior Hyoid Excursion: Partial anterior movement Epiglottic Movement: Partial inversion - inconsistent inversion Laryngeal Vestibule Closure at Height of Swallow: Incomplete; narrow column of air/contrast in laryngeal vestibule Pharyngeal Stripping Wave: Present - diminished Pharyngoesophageal Segment Opening: Complete distension and complete duration; no obstruction of flow Tongue Base Retraction: Wide column of contrast between tongue base & post. pharyngeal wall Pharyngeal Residue: Collection of residue within or on pharyngeal structures - Treatment Strategies Effects of treatment strategies attemped:: Cough and re-swallow = effectively cleared laryngeal vestibule. Decreased bolus rate = effective in decreasing laryngeal penetration. - Diagnosis/Impression Diagnosis: Mild oropharyngeal phase dysphagia (R13.12) Impression: The oral phase is primarily marked by... -Decreased bolus control with premature posterior loss of <1/2 of thin liquid bolus to the pyriforms prior to swallow onset most notable with sequential sips of thin liquids. -Prolonged, but adequate mastication abilities. -Trace oral residues after the swallow, although he did feel he had cookie crumbs in upper L gums after the study was completed. He continues to benefit from lingual or finger sweep to clear L sided pocketing due to L facial paralysis. The pharyngeal phase is primarily marked by... -Mild delay initiating the swallow with sequential sips of liquids. -Decreased laryngeal elevation and anterior hyoid excursion contributing to decreased laryngeal vestibular closure, inconsistent epiglottic inversion, and mildly UES opening/duration. -Decreased tongue base retraction and pharyngeal stripping wave with resulting pharyngeal residues in the vallecula after the swallow, which was most notable with cookie trial. -Laryngeal penetration of sequential sips of thin liquids by cup and straw, which did fully eject with straw sips. Cough and re-swallow ejected contrast from the laryngeal vestibule. No aspiration observed during the study. - Recommendations Diet: Regular Textures, Thin Liquids Compensatory Strategies: Small Bites, Small Sips, Slow Rate - sips one at a time, Multiple Swallows - as needed, Alternate bites/solids and sips/liquids, Sitting upright Recommend Repeat Modified Barium Swallow: Yes Comment: Repeat MBS study 3 months after completion of radiation to monitor swallow function as the patient is at risk for worsening dysphagia and aspiration risk s/p radiation treatment. Need for Skilled Speech Therapy Services: Yes Comment: Will recommend the patient for continued outpatient dysphagia therapy during and following radiation treatment to address mild deficits in oropharyngeal swallow function. Will recommend the patient for oropharyngeal strengthening to improve laryngeal elevation, hyoid excursion, tongue base retraction, and pharyngeal contraction. Continue with current home exercise program (Andree, effortful, Shalini, and jaw ROM exercises) with CTAR added after instruction with MEDICAL INSTRUCTOR. The patient would benefit from thorough education regarding diet recommendations and recommended compensatory strategies to decrease risk for aspiration. Education Completed: 1. Described result of evaluation., 2. Pt understands evaluation & agrees with goals and treatment plan. - Status Active ST Patient: Active - Contact Information [facility] Speech Therapy:: Kayleen Marie M.A. [facility]-MEDICAL INSTRUCTOR Speech-Language Pathologist [facility] [address] [place] [address] [email or web address] [phone] 06/05/22 14:08
== END | disposition home or self-care (01) ==
PROVIDERS: PCP Family Medicine; Referring Provider Student in an Organized Health Care Education/Training Program; Visit Provider Student in an Organized Health Care Education/Training Program
DX: C07 Malignant neoplasm of parotid gland (principal)
CPT/HCPCS: 74230; 92611

== ENCOUNTER → 2022-06-08 | Outpatient (CLI) | payer OTHER, SELFPAY | END | disposition home or self-care (01) | LOC: PSN 12:17 | PROVIDERS: PCP Family Medicine | DX: Z01.818 Encounter for other preprocedural examination (principal); R59.0 Localized enlarged lymph nodes | CPT/HCPCS: 87635; C9803; U0003; U0005 ==

== ENCOUNTER → 2022-07-29 | Outpatient (CLI) | payer OTHER, SELFPAY ==
[2022-07-29 17:54] LABS: Absolute Lymphocyte Count 0.42 X10^3/uL (0.83-4.51); Absolute Neutrophil Count 6.4 X10^3/uL (2.0-7.7); Basophil# 0.03 X10^3/uL; Basophil% 0.4 % (0-1); Eosinophil# 0.26 X10^3/uL; Eosinophils% 3.3 % (0-5); Hematocrit 39.9 % (40-54); Hemoglobin 13.1 g/dL (13.0-16.5); Lymphocyte # 0.42 X10^3/ul (0.83-4.51); Lymphocyte % 5.4 % (19-41); Mean Corp Hgb Conc 32.8 g/dL (32-36); Mean Corpuscular Hgb 29.4 pg (27.0-32.0); Mean Corpuscular Volume 89.7 fL (80-94); Mean Platelet Vol. 11.7 fl (6.2-12.0); Monocyte# 0.68 X10^3/uL; Monocyte% 8.7 % (0-10); NRBC Flagged by Analyzer 0 % (0-5); Neutrophil # 6.43 X10^3/uL (2.7-7.7); Neutrophil % 81.9 % (47-70); POSITIVE DIFFERENTIAL YES; Platelet Count 179 K/mm3 (150-450); RBC Distribution Width CV 16.9 % (11.6-14.6); RBC Distribution Width SD 55.3 fl (35.1-43.9); Red Blood Count 4.45 M/mm3 (4.6-6.2); White Blood Count 7.8 K/mm3 (4.4-11.0)
[2022-07-29 17:56] LABS: Differential Indicated SCAN CRITERIA MET
[2022-07-29 18:19] LABS: ALB/GLOB Ratio 0.9 RATIO (0.9-2.4); AST(SGOT) 30 U/L (15-37); Alanine Aminotransfer ALT/SGPT 41 U/L (16-61); Albumin, Serum 3.5 g/dL (3.2-5.0); Alkaline Phosphatase 123 U/L (45-117); Anion Gap 11 (5-15); BUN 56 mg/dL (7-18); BUN/Creat Ratio 31.5 RATIO (10-20); Calcium,Total 9.4 mg/dL (8.5-10.1); Chloride 105 mmol/L (98-107); Cholesterol 107 mg/dL (200); Creatinine, Serum 1.78 mg/dL (0.70-1.30); EST Glomerular Filtration Rate 41 mL/min (>60); Est Glom Filt Rate - Afr Amer 49 mL/min (>60); Ferritin 92 ng/mL (26-388); Globulin 4.1 g/dL (2.2-4.2); Glucose 219 mg/dL (74-106); High Density Lipoprotein 34 mg/dL; Iron 76 ug/dL (65-175); Iron Binding Capacity,Total 319 ug/dL (250-450); PERCENT IRON SATURATION 23.8 % (15.0-55.0); Phosphorus 2.5 mg/dL (2.5-4.9); Potassium 4.8 mmol/L (3.5-5.1); Protein, Total 7.6 g/dL (6.4-8.2); Sodium Level 136 mmol/L (136-145); Triglycerides 166 mg/dL; Very Low Density Lipoprotein 33 mg/dL (5-40)
[2022-07-29 18:21] LABS: Vitamin B12 418 pg/mL (211-911); Vitamin D,25 Hydroxy 20.3 ng/mL
[2022-07-29 18:24] LABS: Differential Comment SCANNED
[2022-07-29 18:42] LABS: Hemoglobin A1c 7.8 % (3.8-5.6)
== END | disposition home or self-care (01) ==
LOC: MFPLAB 15:03
PROVIDERS: PCP Family Medicine; Referring Provider Family Medicine; Visit Provider Family Medicine
DX: D64.9 Anemia, unspecified (principal); E11.9 Type 2 diabetes mellitus without complications; N18.30 Chronic kidney disease, stage 3 unspecified
CPT/HCPCS: 36415; 80053; 80061; 82306; 82607; 82728; 82746; 83036; 83540; 83550; 83970; 84100; 85025

== ENCOUNTER → 2022-10-19 | Outpatient (CLI) | payer OTHER, SELFPAY ==
--- NOTE | 2022-10-19 12:54 | CT_ITS ---
STUDY: CT CHEST WITH CONTRAST REASON FOR EXAM: Male, 67 years old. Eval for disease -- h/o treated parotid cancer RADIATION DOSAGE (If Supplied By Facility): CTDIvol = ( 19.24 ) mGy, DLP = ( 1445.02 ) mGycm TECHNIQUE: Transaxial imaging was performed following intravenous administration of IV 100mL Isovue-300. Multiplanar coronal and sagittal images were reformatted. Individualized dose optimization techniques were used for this CT. COMPARISON: No relevant priors. FINDINGS: CHEST Heterogeneous enlargement of the right lobe of the thyroid gland with multiple hypodense nodules. There is evidence of a substernal extension. Small hypodense nodules in the left lobe of the thyroid. The lungs are normal. There is no demonstrated pleural abnormality. There are calcifications of the coronary arteries. There are multiple mediastinal lymph nodes. There is a precarinal lymph noted measuring 1.9 cm in transverse dimension. There is also evidence of the lymph nodes in the aortopulmonary window Normal hilar regions. Normal unenhanced pulmonary arteries. There is atherosclerotic calcification of the aortic arch with tortuosity and elongation of the aortic arch and descending thoracic aorta. There are multi-level degenerative changes of the thoracic spine. Loss of height of approximately 50% of the T12 vertebrae. Multiple tiny gallstones along the dependent portion of the gallbladder lumen. CT/Chest WITH Contrast IMPRESSION: Heterogeneous enlargement of the right lobe of the thyroid with multiple hypodense nodules. Substernal extension. Enlarged precarinal lymph node and small lymph nodes are seen throughout the mediastinum. Electronically Signed: Abdirizak Markham MD at 14:12 EST ,
--- NOTE | 2022-10-19 12:54 | CT_ITS ---
STUDY: CT SOFT TISSUE NECK WITH CONTRAST REASON FOR EXAM: Male, 67 years old. Known left parotid carcinoma RADIATION DOSAGE (If Supplied By Facility): CTDIvol = ( 19.24 ) mGy, DLP = ( 1445.02 ) mGycm TECHNIQUE: The patient was scanned in a multi-detector CT scanner. High resolution transaxial imaging was performed following intravenous administration of IV 100mL Isovue-300. Sagittal and coronal images were reconstructed. Individualized dose optimization techniques were used for this CT. COMPARISON: 02/19/2022 FINDINGS: Parotid glands have been fatty replaced. Postsurgical changes noted in the left parotid gland. Previously noted lymph node within the left parotid gland no longer identified. Normal bilateral health services administrator spaces. Normal bilateral parapharyngeal spaces. Normal bilateral carotid spaces. Normal bilateral sublingual and submandibular glands and spaces. Normal visualized nasopharynx. Normal retropharyngeal space. Normal perivertebral space. Normal visualized bilateral faucial tonsils. The visualized tongue, tongue base and oropharynx are normal. The visualized cervical lymph nodes (levels I-) are within normal size limits, and maintain normal morphology. There is no demonstrated solid or cystic mass lesion. There is no abnormal contrast enhancement. Stable subcentimeter in short axis dimension superior mediastinal lymph nodes. Normal epiglottis, bilateral vallecula and hypopharynx. The pre-epiglottic and paraglottic adipose spaces are normal. Normal visualized bilateral piriform sinuses, aryepiglottic folds, vocal cords, and arytenoid-cricoid articulations. Normal subglottic trachea. Thyroid gland is again noted to be heterogeneous with multiple low-density nodules and calcified isthmus. Normal visualized pulmonary apices. Normal visualized paranasal sinuses. There is multilevel degenerative changes of the cervical spine. CT/Soft Tissue Neck WITH Contrast IMPRESSION: Previous surgery to the left parotid gland. No new suspicious lesion or lymph node noted. No acute inflammatory process. Previously noted lymph node within the left parotid gland no longer identified Stable fatty replacement of the parotid glands. No new suspicious enhancing lesion, no airway narrowing or deviation. Stable physiologic jugular chain and superior mediastinal lymph nodes Degenerative bony changes Stable heterogeneous thyroid gland with multiple nodules and calcifications Electronically Signed: Hubert Schwartz MD at 14:02 EST ,
[2022-10-19 13:20] LABS: CREATININE FINGERSTICK 1.7 mg/dL (0.70-1.30)
== END | disposition home or self-care (01) ==
LOC: CT 12:52
PROVIDERS: PCP Family Medicine; Visit Provider Student in an Organized Health Care Education/Training Program
DX: C07 Malignant neoplasm of parotid gland (principal)
CPT/HCPCS: 70491; 71260; Q9967

== ENCOUNTER → 2022-10-22 | Outpatient (CLI) | payer OTHER, SELFPAY ==
[2022-10-22 08:20] LABS: Bacteria 0 SEEN /hpf (None Seen); Mucous, Urine 0 SEEN /hpf (<or=2+); Red Blood Cells-Urine 0 SEEN /hpf (0-5); White Blood Cells 0 SEEN /hpf (0-5)
[2022-10-22 10:28] LABS: Color, Urine Yellow (Yellow); Glucose, Dipstick 1000 mg/dl (Normal); Ketone-Dipstick Negative (Negative); Leukocyte Esterase-Dipstick Negative /ul (Negative); Nitrite-Dipstick Negative (Negative); Occult Blood-Urine Negative /ul (Negative); Protein-Dipstick Negative (Negative); Specific Gravity, Urine 1.015 (1.002-1.030); Urine Bilirubin Dipstick Negative (Negative); Urine Clarity Clear (Clear); Urine Urobilinogen Normal (Normal)
[2022-10-22 10:29] LABS: Absolute Lymphocyte Count 0.59 X10^3/uL (0.83-4.51); Absolute Neutrophil Count 4.8 X10^3/uL (2.0-7.7); Basophil# 0.04 X10^3/uL; Basophil% 0.6 % (0-1); Eosinophil# 0.35 X10^3/uL; Eosinophils% 5.5 % (0-5); Hematocrit 38.1 % (40-54); Hemoglobin 12.1 g/dL (13.0-16.5); Lymphocyte # 0.59 X10^3/ul (0.83-4.51); Lymphocyte % 9.2 % (19-41); Mean Corp Hgb Conc 31.8 g/dL (32-36); Mean Corpuscular Hgb 29.9 pg (27.0-32.0); Mean Corpuscular Volume 94.1 fL (80-94); Mean Platelet Vol. 11.8 fl (6.2-12.0); Monocyte# 0.56 X10^3/uL; Monocyte% 8.7 % (0-10); NRBC Flagged by Analyzer 0 % (0-5); Neutrophil # 4.84 X10^3/uL (2.7-7.7); Neutrophil % 75.4 % (47-70); POSITIVE DIFFERENTIAL YES; Platelet Count 159 K/mm3 (150-450); RBC Distribution Width CV 15.1 % (11.6-14.6); RBC Distribution Width SD 51.7 fl (35.1-43.9); Red Blood Count 4.05 M/mm3 (4.6-6.2); White Blood Count 6.4 K/mm3 (4.4-11.0)
[2022-10-22 10:48] LABS: Differential Indicated SCAN CRITERIA MET
[2022-10-22 10:55] LABS: Squamous Epithelial Cells - UA 0-5 SEEN /hpf (0-5)
[2022-10-22 11:23] LABS: Hemoglobin A1c 6.5 % (3.8-5.6)
[2022-10-22 11:31] LABS: Microalbumin,Random Urine < 5.0 mg/L (NO RANGE EST.); Protein, Urine (Random) 11.6 mg/dL (<11.9); Protein:Creat Ratio 137 mg/g CRE (0-200)
[2022-10-22 12:16] LABS: AST(SGOT) 21 U/L (15-37); Alanine Aminotransfer ALT/SGPT 26 U/L (16-61); Albumin, Serum 3.3 g/dL (3.2-5.0); Alkaline Phosphatase 85 U/L (45-117); Anion Gap 11 (5-15); BUN 17 mg/dL (7-18); BUN/Creat Ratio 13.7 RATIO (10-20); Chloride 109 mmol/L (98-107); Cholesterol 124 mg/dL (200); Creatinine, Serum 1.24 mg/dL (0.70-1.30); EST Glomerular Filtration Rate 62 mL/min (>60); Est Glom Filt Rate - Afr Amer 75 mL/min (>60); Globulin 3.3 g/dL (2.2-4.2); Glucose 135 mg/dL (74-106); High Density Lipoprotein 33 mg/dL; Phosphorus 3.5 mg/dL (2.5-4.9); Protein, Total 6.6 g/dL (6.4-8.2); Sodium Level 142 mmol/L (136-145); Triglycerides 136 mg/dL; Very Low Density Lipoprotein 27 mg/dL (5-40)
[2022-10-23 10:44] LABS: Vitamin B12 241 pg/mL (211-911)
[2022-10-23 10:45] LABS: Ferritin 30 ng/mL (26-388); Iron 44 ug/dL (65-175); Iron Binding Capacity,Total 263 ug/dL (250-450); PERCENT IRON SATURATION 16.7 % (15.0-55.0)
== END | disposition home or self-care (01) ==
LOC: MFPLAB 08:17
PROVIDERS: PCP Family Medicine; Referring Provider Family Medicine; Visit Provider Family Medicine
DX: E11.22 Type 2 diabetes mellitus with diabetic chronic kidney disease (principal); N18.30 Chronic kidney disease, stage 3 unspecified
CPT/HCPCS: 80053; 80061; 81001; 82043; 82570; 82607; 82728; 83036; 83540; 83550; 83970; 84100; 84156; 85025

== ENCOUNTER → 2022-10-30 | Outpatient (CLI) | payer OTHER, SELFPAY ==
--- NOTE | 2022-10-30 16:21 | SP.MBSS_ITS ---
Modified Barium Swallow - Patient Information Study Date: 10/30/22 Study Time: 13:00 Direct Billable Minutes: 72 Total Minutes procedure & reportin Diagnosis: Carcinoma of the parotid gland (C07) Referring Physician: Florin Mar Reason for Referral: Objectively assess swallow function, assess risk for aspiration, and determine recommendations for least restrictive diet textures and compensatory strategies to improve safety of swallow. 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 From 06/17/2022 ? 07/29/2022 he completed adjuvant radiation therapy. He followed with outpatient speech therapy to manage mild dysphagia secondary to his cancer of the parotid gland. MBSS 06/05/2023 recommended the following diet and strategies: Regular Textures, Thin Liquids; Small Bites, Small Sips, Slow Rate - sips one at a time, Multiple Swallows - as needed, Alternate bites/solids and sips/liquids, Sitting upright. He has been recommended for repeat MBSS 3 months after completion of radiation to reassess swallow function due to risk for worsening dysphagia s/p radiation treatment. Current Diet Ordered: Regular textures / Thin liquids Dentition: WNL - dental implants Mental Status: WNL Respiratory Status: Oxygenating on Room Air - Penetration-Aspiration Scale Penetration-Aspiration Scale: OBJECTIVE ASSESSMENT OF SWALLOW FUNCTION (QUANTITATIVE ? PER TRIAL): PENETRATION / ASPIRATION SCALE (HARMAN): 1 = does not enter airway 2 = enters airway/above vocal folds/ejected 3 = enters airway/above vocal folds/not ejected 4 = enters airway/contacts vocal folds/ejected 5 = enters airway/contacts vocal folds/not ejected 6 = enters airway/below vocal folds/ejected 7 = enters airway/below vocal folds/not ejected despite effort 8 = enters airway/below vocal folds/no effort VIDEOFLOROSCOPIC SCALE SCORE (HARMAN): Grade I = aspiration of material that has penetrated into the laryngeal vestibule, intact cough reflex Grade II = aspiration < 10 % of the bolus, intact cough reflex Grade III = aspiration of < 10 % of the bolus, reduced cough reflex or aspiration of > 10 % of the bolus, intact cough reflex Grade IV = aspiration of > 10 % of the bolus, reduced cough reflex - Penetration-Aspiration Scale Score Thin Liquid via teaspoon Comment: Could not score as pt swallowed prior to cue from [employer] and prior to fluoroscopy being turned on. Thin Liquid via teaspoon Trial 2 Result: 1= does not enter airway Thin Liquid via teaspoon Trial 3 Result: 1= does not enter airway Thin Liquid via small single sip from cup Result: 4= enters airway/contacts vocal folds/ejected Thin Liquid via sequential sips from cup Result: 3= enters airways/above vocal folds/not ejected [place] Thick Liquid via small single sip from cup Result: 1= does not enter airway Pudding via teaspoon Result: 1= does not enter airway 1/2 Cookie Result: 1= does not enter airway Thin Liquid via single sip from straw Result: 2= enter airway/above vocal folds/ejected Thin Liquid via small single sip from cup Effortful swallow Result: 2= enter airway/above vocal folds/ejected - Oral Phase Labial Seal: No Labial Escape Tongue Control During Bolus Hold: Posterior escape of less than half of bolus Bolus Preparation/Mastication: Timely and efficient chewing and mashing Bolus Transport/Lingual Motion: Delayed initiation of tongue motion Oral Residue: Trace residue lining oral structures - Pharyngeal Phase Initiation of Pharyngeal Swallow: Bolus head in pyriforms - sequential thin Soft Palate Elevation: No bolus between soft palate and pharyngeal wall Laryngeal Elevation: Partial superior movement thyroid cart/partial apprx aryt- epig petiole Anterior Hyoid Excursion: Partial anterior movement Epiglottic Movement: Complete inversion Laryngeal Vestibule Closure at Height of Swallow: Incomplete; narrow column of air/contrast in laryngeal vestibule Pharyngeal Stripping Wave: Present - diminished Pharyngoesophageal Segment Opening: Complete distension and complete duration; no obstruction of flow Tongue Base Retraction: Wide column of contrast between tongue base & post. pharyngeal wall Pharyngeal Residue: Collection of residue within or on pharyngeal structures - Diagnosis/Impression Diagnosis: Mild oropharyngeal phase dysphagia (R13.12) Impression: The oral phase is primarily marked by... -Decreased bolus control with premature posterior loss of <1/2 of thin liquid bolus to the pyriforms prior to swallow onset most notable with sequential sips of thin liquids. -Timely and effective mastication of regular textured cookie. The pharyngeal phase is primarily marked by... -Mild delay initiating the swallow, most notable with sequential sips of liquids. -Mildly decreased airway closure during the swallow due to decreased laryngeal elevation and anterior hyoid excursion. -Decreased tongue base retraction and pharyngeal stripping wave with resulting mild-moderate pharyngeal residues in the vallecula after the swallow. Pt had increased pharyngeal residue as viscosities increased. -Laryngeal penetration of sequential sips of thin liquids by cup and straw, when consumed both single and sequentially. One sip by cup did not fully eject from the laryngeal vestibule after the swallow. Increased depth of laryngeal penetration of cup sips of thin as compared to previous study. No aspiration observed during the study. - Recommendations Diet: Regular Textures, Thin Liquids Compensatory Strategies: Small Bites, Small Sips - effortful swallows, Slow Rate, Sitting upright, Remain sitting upright for 30 minutes after PO intake Recommend Repeat Modified Barium Swallow: Yes - 6-12 months Need for Skilled Speech Therapy Services: Yes Comment: Will recommend the patient for continued outpatient dysphagia therapy following radiation treatment to address mild deficits in oropharyngeal swallow function. Will recommend the patient for oropharyngeal strengthening to improve laryngeal elevation, hyoid excursion, tongue base retraction, and pharyngeal contraction. Continue with current home exercise program (Andree, Effortful, Shalini, CTAR, and Jaw ROM exercises). Pt admits to not completing exercises at home. The patient would also benefit from thorough education regarding diet recommendations and recommended compensatory strategies to decrease risk for aspiration. Education Completed: 1. Described result of evaluation., 2. Pt understands evaluation & agrees with goals and treatment plan., 7. Pt requires further edu cation on strategies & risks. - Status Active ST Patient: Active - Contact Information [facility]:: Kayleen Marie M.A. [facility]-[employer] Speech-Language Pathologist [facility] [address] [place] [address] [email or web address] [phone] 10/30/22 16:24
== END | disposition home or self-care (01) ==
LOC: RAD 12:33
PROVIDERS: PCP Family Medicine; Referring Provider Student in an Organized Health Care Education/Training Program; Visit Provider Student in an Organized Health Care Education/Training Program
DX: C07 Malignant neoplasm of parotid gland (principal)
CPT/HCPCS: 74230; 92611

== ENCOUNTER → 2023-02-11 | Outpatient (CLI) | payer OTHER, SELFPAY ==
[2023-02-11 08:38] LABS: Bacteria 0 SEEN /hpf (None Seen); Mucous, Urine 0 SEEN /hpf (<or=2+); Red Blood Cells-Urine 0 SEEN /hpf (0-5); Squamous Epithelial Cells - UA 0 SEEN /hpf (0-5); White Blood Cells 0 SEEN /hpf (0-5)
[2023-02-11 10:46] LABS: Absolute Lymphocyte Count 0.71 X10^3/uL (0.83-4.51); Absolute Neutrophil Count 5.8 X10^3/uL (2.0-7.7); Basophil# 0.05 X10^3/uL; Basophil% 0.7 % (0-1); Eosinophil# 0.35 X10^3/uL; Eosinophils% 4.7 % (0-5); Hematocrit 38.7 % (40-54); Hemoglobin 12.6 g/dL (13.0-16.5); Lymphocyte # 0.71 X10^3/ul (0.83-4.51); Lymphocyte % 9.5 % (19-41); Mean Corp Hgb Conc 32.6 g/dL (32-36); Mean Corpuscular Hgb 29.9 pg (27.0-32.0); Mean Corpuscular Volume 91.7 fL (80-94); Mean Platelet Vol. 11.1 fl (6.2-12.0); Monocyte# 0.53 X10^3/uL; Monocyte% 7.1 % (0-10); NRBC Flagged by Analyzer 0 % (0-5); Neutrophil # 5.84 X10^3/uL (2.7-7.7); Neutrophil % 77.6 % (47-70); Platelet Count 157 K/mm3 (150-450); RBC Distribution Width CV 15.6 % (11.6-14.6); RBC Distribution Width SD 52.5 fl (35.1-43.9); Red Blood Count 4.22 M/mm3 (4.6-6.2); White Blood Count 7.5 K/mm3 (4.4-11.0)
[2023-02-11 10:56] LABS: Protein, Urine (Random) 10.1 mg/dL (<11.9); Protein:Creat Ratio 106 mg/g CRE (0-200)
[2023-02-11 11:04] LABS: Hemoglobin A1c 6.5 % (3.8-5.6)
[2023-02-11 11:05] LABS: PTHIN 61.6 pg/mL (18.4-80.1)
[2023-02-11 11:07] LABS: Vitamin B12 224 pg/mL (211-911); Vitamin D,25 Hydroxy 113.3 ng/mL
[2023-02-11 11:21] LABS: Color, Urine Yellow (Yellow); Glucose, Dipstick 1000 mg/dl (Normal); Ketone-Dipstick Negative (Negative); Leukocyte Esterase-Dipstick Negative /ul (Negative); Nitrite-Dipstick Negative (Negative); Occult Blood-Urine Negative /ul (Negative); Protein-Dipstick Negative (Negative); Specific Gravity, Urine 1.015 (1.002-1.030); Urine Bilirubin Dipstick Negative (Negative); Urine Clarity Clear (Clear); Urine Urobilinogen Normal (Normal)
[2023-02-11 11:25] LABS: AST(SGOT) 17 U/L (15-37); Alanine Aminotransfer ALT/SGPT 25 U/L (16-61); Albumin, Serum 3.5 g/dL (3.2-5.0); Alkaline Phosphatase 106 U/L (45-117); Anion Gap 11 (5-15); BUN 22 mg/dL (7-18); BUN/Creat Ratio 17.1 RATIO (10-20); Calcium,Total 9.1 mg/dL (8.5-10.1); Chloride 108 mmol/L (98-107); Cholesterol 121 mg/dL (200); Creatinine, Serum 1.29 mg/dL (0.70-1.30); EST Glomerular Filtration Rate 59 mL/min (>60); Est Glom Filt Rate - Afr Amer 71 mL/min (>60); Ferritin 42 ng/mL (26-388); Globulin 3.5 g/dL (2.2-4.2); Glucose 123 mg/dL (74-106); High Density Lipoprotein 30 mg/dL; Iron 45 ug/dL (65-175); Iron Binding Capacity,Total 258 ug/dL (250-450); Potassium 4.3 mmol/L (3.5-5.1); Sodium Level 138 mmol/L (136-145); Triglycerides 106 mg/dL; Very Low Density Lipoprotein 21 mg/dL (5-40)
== END | disposition home or self-care (01) ==
LOC: MFPLAB 08:28
PROVIDERS: PCP Family Medicine; Visit Provider Family Medicine
DX: N18.30 Chronic kidney disease, stage 3 unspecified (principal); E11.9 Type 2 diabetes mellitus without complications; D64.9 Anemia, unspecified
CPT/HCPCS: 36415; 80053; 80061; 81001; 82306; 82570; 82607; 82728; 82746; 83036; 83540; 83550; 83970; 84156; 85025

== ENCOUNTER 2023-04-09 11:30 | Outpatient (RCR) | payer OTHER, SELFPAY ==
--- NOTE | 2022-06-01 14:36 | HP.SP.EVAL ---
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 No PEG. He is planned for radiation treatment. Per patient, 06/03/2022 he is planned for biopsy of lung. He is planning to have a surgery for placing a weight in his eyelid after radiation. He is possibly having additional surgery after radiation to address facial paralysis. Per patient's description of surgeries, FOREST ECONOMICS PROFESSOR believes the pt may be considering cross-facial nerve graft vs. nerve to masseter graft. Weight: 321.2lbs. The patient is retired from [employer]. Smoking Status: Never smoker Hx Smoking: No - Pain Is pain an issue with your current prescribed condition?: No Patient Allergies - Allergies Allergies bee venom protein (honey bee) Allergy (Severe, Verified 05/26/22 13:05) Anaphylaxis Subjective Dysphagia - Symptoms Reported Symptoms/Problems with: Drooling Other: pocketing, min anterior loss - Current Diet Solids Current Diet: Regular - Current Diet Liquids Current Liquids: Thin - Comments Patient report -: Some anterior loss of liquids on the L side. Pocketing of food on the L side. Pt has 15 implants, no molars, uses finger sweep to clear foods after meal. Tongue sweep is not entirely effective. Jaw opening was decreased prior surgery. He notes no changes in taste. Mild xerostomia intermittently, which is possibly due to medication. Pt has lost over 30 lbs in the last 6 months. Objective Dysphagia - Administered by Administered by: Self - Thin Liquids Administred via: Cup, Straw Oral Transit: Delay > 1 seconds Cough: none observed/unable to assess Pharyngeal phase: laryngeal elevation mildly restricted slow initiation Comments: audible swallow consuming sips via cup and straw, no overt s/s of aspiration with single or sequential sips - Pureed Administered via: Spoon Oral Preparation: WNL Oral Transit: WNL Cough: none observed/unable to assess Comments: no overt s/s of aspiration - Regular Oral Preparation: WNL Oral Transit: WNL Bolus clearance: significant clearance/minimal residue Cough: none observed/unable to assess Comments: timely mastication of cookie, mild L sided pocketing - pt reports clearing with finger after completion of meal/snack - Swallowing Impairment Contributing Factors to Swallowing Impairment: Delayed Swallow Initiation Other: reduced jaw opening - Impact Impact on Safety & Functioning: Risk for Aspiration - Recommendations Modified Barium Swallow/Cookie Swallow Recommended: Yes Swallowing Treatment: Yes - Diet Texture Recommendations Solids: Regular (Level 7) Liquids: Thin (Level 0) - Safety Saftey Precautions/Swallowing Recommendations (Check all that Apply): Small Sips & Bites when Eating, Alternate Liquids & Solids - Results Swallowing Within Normal Limits: No Swallowing Diagnosis: Oropharyngeal Phase Dysphagia (R13.12) Severity: Mild Subjective Oral Motor - Subjective Facial Drooping: Left - Comments Comments: dental implants, no molars Objective Oral Motor - Oral Status Dentition: Missing Teeth - Labial Impairment: Severe Observation at Rest: Left Droop Pucker: Moderate Retraction: Moderate Alternating Pucker/Retraction: Moderate - Labial Comments Comments: L facial paralysis s/p L parotidectomy with facial nerve sacrifice - Lingual Impairment: WNL - Jaw Impairment: Moderate Opening: Moderate Closing: WNL Opening Measurement: 28mm - Respiratory Status 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 - V Trigeminal Nerve V Trigeminal Nerve Response: Impaired Comment:: decreased facial sensation in the area of the superior portion of the ramus - VII Facial Nerve VII Facial Nerve Result: Impaired Comment: facial nerve was sacrificed during L parotidectomy - patient has L sided facial paralysis - X Vagus Nerve X Vagus Nerve Result: Intact - XII Hypoglossal Nerve XII Hypoglossal Nerve Result: Intact Swallowing Performance Scale - Swallowing Performance Scale Swallowing Performance Scale Result: 3 Mild FOIS - Functional Oral Intake Scale Total oral diet with multiple consistencies, but requiring special preparation or compensations: Level 5 Plan - Plan Plan: Will recommend the patient for skilled outpatient dysphagia therapy to address oropharyngeal dysphagia related to cancer of parotid gland and to provide the patient further education re: prophylactic oropharyngeal exercise program, diet texture recommendations, aspiration precautions, and compensatory strategies to decrease risk for aspiration. Additionally, will provide ongoing assessment of diet tolerance during and post radiation treatment. Without skilled ST services, the patient is at increased risk for aspiration, weight loss, and malnutrition. MBSS planned for 06/05/2022. - Recommendations MBS: Yes Treatment Warranted: Yes Treatment Warranted: Dysphagia - Progress Prognosis: Good - Frequency Frequency: Every Other Week Additional (Frequency): Frequency to be adjusted to patient's need s/p radiation treatment. Duration: 12 Months - Goals that are Established Determination:: Goals will be added/modified as deemed necessary and appropriate. Therapy will be discontinued when results of re-evaluation indicate therapy is no longer needed or lack of progress has been documented. - Goal #1-5 Goal #1: The patient will consume least restrictive diet textures without overt s/s of aspiration with minimal verbal cues for use of compensatory strategies to decrease risk for aspiration. Goal #2: The patient will complete an oropharyngeal exercise program (Andree, effortful, Shalini) during and post radiation treatment independently to improve and maintain strength, ROM, and coordination of swallowing mechanism (X10 repetitions, 3-5X daily). Goal #3: The patient will complete jaw strength, coordination, and ROM exercises (4 passive ROM exercises with 1 active ROM for yawn stretch) during and post radiation treatment independently to improve and maintain mastication and speech abilities (X10 repetitions, 3-5X daily). Goal #4: The patient will participate in ongoing education re: short-term and long-term effects of chemoradiation treatment on swallow function and management of symptoms that contribute to dysphagia. Goal #5: The patient will participate in MBS study to objectively assess swallow function and provide recommendations for safest, least restrictive diet and compensatory strategies to reduce risk for aspiration. Education - Patient has Indicated that the Following Identified Educational Needs: None The Patient has indicated that they have no educational or learning abilities that may effect their care.: Yes - Patient Instruction Patient Education: Diagnosis, Treatment Plan, Goals, Diet Level, Home Exercise Program Other Education: Education provided regarding the potential impacts of radiation treatment on swallow function during and post treatment, including effects such as mucositis, dysgeusia, radiation fibrosis, lymphedema, and disuse atrophy, which may result in restricted range of motion and weakness of swallowing mechanism. Discussed impaired swallowing and increased risk for aspiration, aspiration related illnesses, weight loss, and malnutrition. Discussed importance for speech therapy to monitor and address dysphagia during and post radiation treatment to maintain optimal swallow function through continued education and prophylactic exercise program. Provided the patient handouts and demonstration of prophylactic oropharyngeal exercise program, as well as jaw ROM exercises. The patient provided return demonstration with all exercises with minimal verbal cues and demonstration. The patient would benefit from continued training to monitor proper execution of exercises and encourage strict adherence to exercise program. Person Taught: Patient Teaching Method: Discussion, Demonstration, Handout Response to teaching: Return demonstration, Verbalize understanding, Reinforcement needed
--- NOTE | 2023-08-10 11:29 | HP.SP.DC ---
ST Discharge Summary Discharged: Discharge: PMH includes malignant neoplasm of L parotid gland s/p left radical parotidectomy and facial nerve sacrifice (05/04/2022). From 06/17/2022 ? 07/29/2022 he completed adjuvant radiation therapy. He participated in OP ST Evaluation to address dysphagia (06/01/2022) with 2 MBSS during POC (10/30/2022, 06/05/2022) and 10 treatment sessions (07/03/22-04/09/2023). He is currently not completing recommended home exercise program and does not wish to participate in quarterly dysphagia therapy despite education that he is at risk for worsening trismus/dysphagia s/p radiation treatment. He is agreeable to annual MBSS and is planned for next MBSS 10/2023. He will be discharged from dysphagia therapy at this time. Please re-consult if concern for worsening dysphagia/aspiration risk prior to October 2023.
== END 2023-04-09 19:00 | disposition home or self-care (01) ==
LOC: SP 11:30
PROVIDERS: PCP Family Medicine; Referring Provider Student in an Organized Health Care Education/Training Program; Visit Provider Student in an Organized Health Care Education/Training Program
DX: C07 Malignant neoplasm of parotid gland (principal)
CPT/HCPCS: 92526; 92610; 97803

== ENCOUNTER → 2023-05-19 | Outpatient (CLI) | payer OTHER, SELFPAY ==
[2023-05-19 08:29] LABS: Bacteria 0 SEEN /hpf (None Seen); Mucous, Urine 0 SEEN /hpf (<or=2+); Red Blood Cells-Urine 0 SEEN /hpf (0-5); Squamous Epithelial Cells - UA 0 SEEN /hpf (0-5); White Blood Cells 0 SEEN /hpf (0-5)
[2023-05-19 10:14] LABS: Color, Urine Yellow (Yellow); Glucose, Dipstick 1000 mg/dl (Normal); Ketone-Dipstick Negative (Negative); Leukocyte Esterase-Dipstick 25 /ul (Negative); Nitrite-Dipstick Negative (Negative); Occult Blood-Urine Negative /ul (Negative); Protein-Dipstick Negative (Negative); Specific Gravity, Urine 1.015 (1.002-1.030); Urine Bilirubin Dipstick Negative (Negative); Urine Clarity Clear (Clear); Urine Urobilinogen Normal (Normal)
[2023-05-19 10:15] LABS: Absolute Lymphocyte Count 0.98 X10^3/uL (0.83-4.51); Absolute Neutrophil Count 5.4 X10^3/uL (2.0-7.7); Basophil# 0.03 X10^3/uL; Basophil% 0.4 % (0-1); Eosinophil# 0.31 X10^3/uL; Eosinophils% 4.3 % (0-5); Hematocrit 38.8 % (40-54); Hemoglobin 12.4 g/dL (13.0-16.5); Lymphocyte # 0.98 X10^3/ul (0.83-4.51); Lymphocyte % 13.7 % (19-41); Mean Corpuscular Hgb 28.8 pg (27.0-32.0); Mean Corpuscular Volume 90.2 fL (80-94); Mean Platelet Vol. 11.7 fl (6.2-12.0); Monocyte# 0.45 X10^3/uL; Monocyte% 6.3 % (0-10); NRBC Flagged by Analyzer 0 % (0-5); Neutrophil # 5.37 X10^3/uL (2.7-7.7); Neutrophil % 74.9 % (47-70); Platelet Count 161 K/mm3 (150-450); RBC Distribution Width CV 15.3 % (11.6-14.6); RBC Distribution Width SD 50.4 fl (35.1-43.9); White Blood Count 7.2 K/mm3 (4.4-11.0)
[2023-05-19 10:34] LABS: Protein, Urine (Random) 9.9 mg/dL (<11.9); Protein:Creat Ratio 131 mg/g CRE (0-200)
[2023-05-19 10:47] LABS: ALB/GLOB Ratio 0.9 RATIO (0.9-2.4); AST(SGOT) 16 U/L (15-37); Alanine Aminotransfer ALT/SGPT 25 U/L (16-61); Albumin, Serum 3.3 g/dL (3.2-5.0); Alkaline Phosphatase 118 U/L (45-117); Anion Gap 8 (5-15); BUN 21 mg/dL (7-18); BUN/Creat Ratio 17.5 RATIO (10-20); Calcium,Total 8.8 mg/dL (8.5-10.1); Chloride 109 mmol/L (98-107); Cholesterol 122 mg/dL (200); EST Glomerular Filtration Rate 64 mL/min (>60); Est Glom Filt Rate - Afr Amer 77 mL/min (>60); Ferritin 29 ng/mL (26-388); Globulin 3.6 g/dL (2.2-4.2); Glucose 103 mg/dL (74-106); High Density Lipoprotein 35 mg/dL; Iron 40 ug/dL (65-175); Iron Binding Capacity,Total 263 ug/dL (250-450); PSA,Total - Annual Screen 5.17 ng/mL (0.00-4.00); Potassium 4.3 mmol/L (3.5-5.1); Protein, Total 6.9 g/dL (6.4-8.2); Sodium Level 140 mmol/L (136-145); Thyroid Stim Hormone (TSH) 1.34 uIU/mL (0.358-3.74); Triglycerides 102 mg/dL; Very Low Density Lipoprotein 20 mg/dL (5-40)
[2023-05-19 11:19] LABS: Hemoglobin A1c 6.2 % (3.8-5.6)
== END | disposition home or self-care (01) ==
LOC: MFPLAB 08:22
PROVIDERS: PCP Family Medicine; Visit Provider Family Medicine
DX: E11.9 Type 2 diabetes mellitus without complications (principal); N18.30 Chronic kidney disease, stage 3 unspecified; Z12.5 Encounter for screening for malignant neoplasm of prostate; D64.9 Anemia, unspecified
CPT/HCPCS: 36415; 80053; 80061; 81001; 82570; 82728; 83036; 83540; 83550; 84153; 84156; 84443; 85025; G0103

== ENCOUNTER → 2023-09-23 | Outpatient (CLI) | payer MEDICARE, SELFPAY ==
[2023-09-23 13:54] LABS: Bacteria 0 SEEN /hpf (None Seen); Mucous, Urine 0 SEEN /hpf (<or=2+); Red Blood Cells-Urine 0 SEEN /hpf (0-5); Squamous Epithelial Cells - UA 0 SEEN /hpf (0-5); White Blood Cells 0 SEEN /hpf (0-5)
[2023-09-23 15:32] LABS: Absolute Lymphocyte Count 0.88 X10^3/uL (0.83-4.51); Absolute Neutrophil Count 6.2 X10^3/uL (2.0-7.7); Basophil# 0.05 X10^3/uL; Basophil% 0.6 % (0-1); Eosinophil# 0.27 X10^3/uL; Eosinophils% 3.4 % (0-5); Hematocrit 41.3 % (40-54); Lymphocyte # 0.88 X10^3/ul (0.83-4.51); Lymphocyte % 11.1 % (19-41); Mean Corp Hgb Conc 31.5 g/dL (32-36); Mean Corpuscular Hgb 28.2 pg (27.0-32.0); Mean Corpuscular Volume 89.6 fL (80-94); Monocyte# 0.47 X10^3/uL; Monocyte% 5.9 % (0-10); NRBC Flagged by Analyzer 0 % (0-5); Neutrophil # 6.23 X10^3/uL (2.7-7.7); Neutrophil % 78.7 % (47-70); Platelet Count 184 K/mm3 (150-450); RBC Distribution Width CV 15.4 % (11.6-14.6); Red Blood Count 4.61 M/mm3 (4.6-6.2); White Blood Count 7.9 K/mm3 (4.4-11.0)
[2023-09-23 15:40] LABS: Color, Urine Yellow (Yellow); Glucose, Dipstick 1000 mg/dl (Normal); Ketone-Dipstick Negative (Negative); Leukocyte Esterase-Dipstick Negative /ul (Negative); Nitrite-Dipstick Negative (Negative); Occult Blood-Urine Negative /ul (Negative); Protein-Dipstick Negative (Negative); Urine Bilirubin Dipstick Negative (Negative); Urine Clarity Clear (Clear); Urine Urobilinogen Normal (Normal)
[2023-09-23 15:51] LABS: Vitamin D,25 Hydroxy 47.9 ng/mL
[2023-09-23 15:54] LABS: Hemoglobin A1c 6.6 % (3.8-5.6)
[2023-09-23 16:09] LABS: ALB/GLOB Ratio 0.9 RATIO (0.9-2.4); AST(SGOT) 18 U/L (15-37); Alanine Aminotransfer ALT/SGPT 23 U/L (16-61); Albumin, Serum 3.4 g/dL (3.2-5.0); Alkaline Phosphatase 134 U/L (45-117); Anion Gap 8 (5-15); BUN 26 mg/dL (7-18); BUN/Creat Ratio 17.2 RATIO (10-20); Calcium,Total 8.4 mg/dL (8.5-10.1); Chloride 108 mmol/L (98-107); Cholesterol 137 mg/dL (200); Creatinine, Serum 1.51 mg/dL (0.70-1.30); EST Glomerular Filtration Rate 49 mL/min (>60); Est Glom Filt Rate - Afr Amer 59 mL/min (>60); Globulin 3.6 g/dL (2.2-4.2); Glucose 228 mg/dL (74-106); High Density Lipoprotein 33 mg/dL; Phosphorus 3.3 mg/dL (2.5-4.9); Potassium 4.4 mmol/L (3.5-5.1); Sodium Level 137 mmol/L (136-145); Triglycerides 152 mg/dL; Very Low Density Lipoprotein 30 mg/dL (5-40)
[2023-09-23 16:31] LABS: Microalbumin,Random Urine < 5.0 mg/L (NO RANGE EST.); Protein, Urine (Random) < 6.0 mg/dL (<11.9)
[2023-09-24 11:38] LABS: PTHIN 101.2 pg/mL (18.4-80.1)
== END | disposition home or self-care (01) ==
LOC: MFPLAB 13:46
PROVIDERS: PCP Family Medicine; Visit Provider Family Medicine
DX: E11.22 Type 2 diabetes mellitus with diabetic chronic kidney disease (principal); E21.3 Hyperparathyroidism, unspecified; N18.30 Chronic kidney disease, stage 3 unspecified
CPT/HCPCS: 36415; 80053; 80061; 81001; 82043; 82306; 82570; 83036; 83970; 84100; 84156; 84443; 85025

== ENCOUNTER → 2023-10-13 | Outpatient (CLI) | payer MEDICARE, SELFPAY ==
[2023-10-13 10:55] LABS: EST Glomerular Filtration Rate 49 mL/min (>60); Est Glom Filt Rate - Afr Amer 60 mL/min (>60)
== END | disposition home or self-care (01) ==
LOC: LAB 09:57
PROVIDERS: PCP Family Medicine; Referring Provider Otolaryngology; Visit Provider Otolaryngology
DX: C07 Malignant neoplasm of parotid gland (principal)
CPT/HCPCS: 36415; 82565

== ENCOUNTER → 2023-10-25 | Outpatient (CLI) | payer MEDICARE, SELFPAY ==
--- NOTE | 2023-10-25 13:41 | ST.MBS ---
Modified Barium Swallow Patient Information Study Date: 10/25/23 Study Time: 13:10 Direct Billable Minutes: 84 Total Minutes procedure & reportin Diagnosis: Carcinoma of the parotid gland (C07) Referring Physician: Florin Mar Reason for Referral: Objectively assess swallow function, assess risk for aspiration, and determine recommendations for least restrictive diet textures and compensatory strategies to improve safety of swallow. 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 From 06/17/2022 ? 07/29/2022 he completed adjuvant radiation therapy. He followed with outpatient speech therapy to manage mild dysphagia secondary to his cancer of the parotid gland. Patient has participated in MBSS to monitor swallow function (06/05/2022, 10/30/2022) Most recent MBSS recommended the following diet and strategies: Regular Textures, Thin Liquids - Small Bites, Small Sips - effortful swallows, Slow Rate, Sitting upright, Remain sitting upright for 30 minutes after PO intake. He has been recommended for repeat MBSS to reassess swallow function due to risk for worsening dysphagia s/p radiation treatment. Patient admits to poor adherence to home oropharyngeal exercise program. He reports occ coughing with food, but otherwise no difficulty swallowing. Current Diet Ordered: Regular textures / Thin liquids Dentition: WNL (implants) and Missing Teeth (missing molars per patient) Mental Status: WNL Respiratory Status: Oxygenating on Room Air Penetration-Aspiration Scale Penetration-Aspiration Scale: OBJECTIVE ASSESSMENT OF SWALLOW FUNCTION (QUANTITATIVE ? PER TRIAL): PENETRATION / ASPIRATION SCALE (HARMAN): 1 = does not enter airway 2 = enters airway/above vocal folds/ejected 3 = enters airway/above vocal folds/not ejected 4 = enters airway/contacts vocal folds/ejected 5 = enters airway/contacts vocal folds/not ejected 6 = enters airway/below vocal folds/ejected 7 = enters airway/below vocal folds/not ejected despite effort 8 = enters airway/below vocal folds/no effort VIDEOFLOROSCOPIC SCALE SCORE (HARMAN): Grade I = aspiration of material that has penetrated into the laryngeal vestibule, intact cough reflex Grade II = aspiration < 10 % of the bolus, intact cough reflex Grade III = aspiration of < 10 % of the bolus, reduced cough reflex or aspiration of > 10 % of the bolus, intact cough reflex Grade IV = aspiration of > 10 % of the bolus, reduced cough reflex Penetration-Aspiration Scale Score Thin Liquid via teaspoon: Result: 1= does not enter airway Thin Liquid via teaspoon Trial 2: Result: 1= does not enter airway Thin Liquid via small single sip: cup: Result: 1= does not enter airway Thin Liquid via sequential sips: cup: Result: 4= enters airway/contacts vocal folds/ejected [place] Thick Liquid via small single sip: cup: Result: 1= does not enter airway Pudding via teaspoon: Result: 1= does not enter airway Comment: Esophageal screen - Complete clearance. /2 Cookie: Result: 1= does not enter airway Thin Liquid via single sip: straw: Result: 1= does not enter airway Thin Liquid via single sip: straw Effortful swallow: Result: 1= does not enter airway Oral Phase Labial Seal: No Labial Escape Tongue Control During Bolus Hold: Posterior escape of less than half of bolus Bolus Preparation/Mastication: Slow prolonged chewing/mashing with complete recollection Bolus Transport/Lingual Motion: Delayed initiation of tongue motion Oral Residue: Residue collection on oral structures (piecemeal cookie) Pharyngeal Phase Initiation of Pharyngeal Swallow: Bolus head in pyriforms Soft Palate Elevation: No bolus between soft palate and pharyngeal wall Laryngeal Elevation: Comp. Superior move thyroid cart w/comp. apprx arytenoid cart-epig pet Anterior Hyoid Excursion: Partial anterior movement Epiglottic Movement: Complete inversion Laryngeal Vestibule Closure at Height of Swallow: Incomplete; narrow column of air/contrast in laryngeal vestibule Pharyngeal Stripping Wave: Present - diminished Pharyngoesophageal Segment Opening: Parital distension and partial duration; parital obstruction of flow Tongue Base Retraction: Wide column of contrast between tongue base & post. pharyngeal wall Pharyngeal Residue: Collection of residue within or on pharyngeal structures Esophageal Phase Esophageal Clearance: Complete clearance Diagnosis/Impression Diagnosis: Mild oropharyngeal dysphagia R13.12 Impression: The oral phase is primarily marked by... -Decreased bolus control with premature posterior loss of <1/2 of thin liquid bolus to the pyriforms prior to swallow onset most notable with straw sip of thin liquids. -Slowed, but complete mastication of regular textured cookie. Piecemeal deglutition of cookie. The pharyngeal phase is primarily marked by... -Mild delay initiating the swallow, most notable with liquids. -Mildly decreased airway closure during the swallow due to decreased laryngeal elevation and anterior hyoid excursion. -Decreased tongue base retraction and pharyngeal stripping wave with resulting mild-moderate pharyngeal residues in the vallecula after the swallow. Cookie had most notable residues. It effectively cleared with liquid wash. -Laryngeal penetration of sequential sips of thin liquids by cup and single sip via straw to the vocal folds with complete ejection during the swallow. No aspiration observed during the study; however, cannot definitively rule out aspiration due to the patient's body habitus. Recommendations Diet: Regular Textures and Thin Liquids Compensatory Strategies: Small Bites, Small Sips (effortful swallows), Slow Rate, Alternate bites/solids and sips/liquids and Sitting upright Recommend Repeat Modified Barium Swallow: Yes Comment: Plan for repeat MBSS in 6-12 months to continue to monitor swallow function s/p radiation, as pt is at increased risk for worsening dysphagia and aspiration risk related to jail effects of radiation. Need for Skilled Speech Therapy Services: Yes Comment: ENVIRONMENTAL ASSOCIATE recommended re-consult with OP dysphagia therapy to re-educate in oropharyngeal exercise program to maintain optimal swallow function. ENVIRONMENTAL ASSOCIATE educated risk for worsening dysphagia s/p radiation treatment due to jail effects of radiation. Patient verbalized understanding of education and politely declined treatment for oropharyngeal exercise program. Education Completed: 1. Described result of evaluation. (Patient verbalized awareness of recommended diet and strategies.) Status Active ST Patient: Active Contact Information [facility] Speech Therapy:: Kayleen Marie M.A. [facility]-ENVIRON[facility]? Speech-Language Pathologist?? [facility] [address]?? [place] [address]?? [email or web address]?? [phone]??
== END | disposition home or self-care (01) ==
LOC: RAD 12:50
PROVIDERS: PCP Family Medicine; Referring Provider Student in an Organized Health Care Education/Training Program; Visit Provider Student in an Organized Health Care Education/Training Program
DX: C07 Malignant neoplasm of parotid gland (principal)
CPT/HCPCS: 74230; 92611

== ENCOUNTER 2023-11-02 07:20 | Day surgery (SDC) | payer MEDICARE, SELFPAY ==
--- OUTSIDE RECORDS SUMMARY | 2023-10-01 06:53 | XMS RPT_ITS | CCD ---
Author Name Unknown Address [address] [place] [address] Organization [facility] Care Team Providers Care Template Fitter Name Role Phone Loni Colon RN Unavailable Unavailable Tete Herrera Unavailable Unavailable Javier Harumi Y Unavailable Unavailable Zarina Courtney Unavailable Loni Colon RN Unavailable Unavailable Oma Head Unavailable Unavailable Unavailable Unavailable Unavailable Oma Head Unavailable Monty Fontenot Unavailable SidagaJere osuna Unavailable Unavailable Lamar Goddard Unavailable Unavailable Oma Head Primary Care Provider [phone] OMA HEAD Referring OMA Mandujano Primary Care UnavailHARIS Viera Attending Unavailable OMA HEAD Primary Care UnavailHARIS Viera Referring Unavailable Angelita, Mr. Darryl Davison Attending Unavaila Dr. Oma Parkinson Primary Care Dr. Aguila Lino Referring Unav MD MONTY Lucas Referring Unavailable Dr. Oma Head Primary Care Aguila Lino Admitting Unavailable Aguila Morales Attending Unavailable Dr. Oma Head Primary Care Dr. Oma Farrell Primary Care MD MONTY Ledezma Attending Unavailable Dr. Oma Head Primary Care MD MONTY Ledezma Attending Unavailable Adilene, Dr. Oma Ovalle Primary Care LAMAR Lake Attending Unavailab le LAMAR GODDARD Referring Unavailab michelle eHad, Dr. Oma Ovalle Primary Care MD MONTY Ledezma Attending Unavailable MD MONTY FONTENOT Referring Unavailable Adilene, Dr. Oma Ovalle Primary Care MD MONTY Ledezma Attending Unavailable MD MONYT FONTENOT Referring Unavailable TINO, LAMAR TELLEZ Attending Unavailab michelle Head, Dr. Oma Ovalle Referring George Head, Dr. Oma Ovalle Primary Care George Head, Dr. Oma Ovalle Referring George Head, Dr. Oma Ovalle Primary Care LAMAR Lake Attending Unavailab le TINOLAMAR Attending Unavailab le TINOLAMAR Referring Unavailab le Adilene, Dr. Oma Ovalle Primary Care LAMAR Lake Admitting Unavailab Oma Mcghee MD Primary Care Provider Gabe Sam MD Unavailable [phone] Deepak Mar DO Unavailable [phone] MONTY FONTENOT Attending Unavailable ADILENE, OMA OVALLE Primary Care Unavailabl e Allergies Allergy Classification Reported Allergen(s) Allergy Type Date of Onset Reaction(s) Facility (20 sources) apis mellifera venom; Translations: [BEE STINGS] allergy to substance 1 Anaphylaxis, Unknown [facility] Work Phone: (3 sources) Bees; Translations: [BEES] Propensity to adverse reactions 7 [facility] Work Phone: (2 sources) Bee/Wasp/Ant venom; Translations: [BEE STING KIT] Allergy to substance [address] [facility] Medications Current Medications Medication Drug Class(es) Dates Sig (Normalized) Sig (Original) ascorbic acid/chondroitin/gl ucosa/savana 20 mg-400 mg-500 mg-2 mg oral capsule (2 sources) take 1 tablet by mouth once daily ascorbic acid/chondroitin/gl ucosa/savana 20 mg-400 mg-500 mg-2 mg oral capsule ; 1 tab(s) oral once a day Quantity: 0 Refills: 0 Ordered: 30-Apr-2022 Janis Ruiz Generic Substitution Allowed atorvastatin 40 mg oral tablet (20 sources) HMG-CoA Reductase Inhibitor Start: 03-10-2022 Atorvastatin Calcium 40 MG Oral Tablet Quantity: 0 Refills: 0 Ordered: 10-Mar-2022 DO Start : 10-Mar-2022 Active Completed/Discontinued Medications Medication Drug Class(es) Dates Sig (Normalized) Sig (Original) Acetaminophen (3 sources) take 2 capsules by m outh once daily in the morning acetaminophen (TYLENOL EXTRA STRENGTH ORAL) Take 500 mg by mouth once daily. 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] Onset: 2 Chronic Chronic kidney disease (1 source) Chronic kidney disease, unspecified; Translations: [Chronic kidney disease, unspecified] Onset: 2 Chronic Chronic ulcer of skin (5 sources) Chronic ulcer of skin; Translations: [Varicose veins of unspecified lower extremity with ulcer of unspecified site] Onset: 6 04-09-2016 Chronic Conduction disorders (6 sources) Right bundle branch block; Translations: [Unspecified right bundle-branch block] Onset: 6 04-09-2016 Chronic Coronary atherosclerosis and other heart disease (18 sources) Atherosclerotic heart disease of [place] coronary artery without angina pectoris; Translations: [Coronary arteriosclerosis] Onset: 1 04-07-2016 Chronic Deficiency and other anemia (2 sources) Anemia co-occurrent and due to chronic kidney disease stage 3; Translations: [Anemia due to stage 3a chronic kidney disease (HCC)] Onset: 2 Chronic Deficiency and other anemia (1 source) Iron deficiency anemia, unspecified; Translations: [Iron deficiency anemia, unspecified iron deficiency anemia type] Onset: 2 Episodic Diabetes mellitus with complications (3 sources) Type 2 diabetes mellitus; Translations: [Type II or unspecified type diabetes mellitus without mention of complication, uncontrolled] Onset: 7 02-03-2007 Chronic Diabetes mellitus without complication (3 sources) Diabetes mellitus; Translations: [Type 2 diabetes mellitus without complications] Onset: 2 03-29-2007 Chronic Disorders of lipid metabolism (10 sources) Hyperlipidemia; Translations: [Hypercholesterolemia] Onset: 2 04-20-2017 Chronic Esophageal disorders (2 sources) Gastroesophageal reflux disease; Translations: [Gastro-esophageal reflux disease without esophagitis] 03-29-2007 Chronic Essential hypertension (1 source) Essential (primary) hypertension; Translations: [Essential (primary) hypertension] Onset: 2 Chronic Genitourinary symptoms and ill-defined conditions (18 sources) H/O: kidney disease; Translations: [Personal history of other specified urinary system disorders] Episodic Hypertension with complications and secondary hypertension (1 source) Hypertensive chronic kidney disease with stage 1 through stage 4 chronic kidney disease, or unspecified chronic kidney disease; Translations: [Hypertensive chronic kidney disease w stg 1-4/unsp chr kdny] Onset: 2 Chronic Mycoses (2 sources) Candidiasis of mouth; Translations: [Candidal stomatitis] Onset: 2 Episodic Other circulatory disease (18 sources) H/O: heart disorder; Translations: [Personal history of other diseases of circulatory system] Episodic Other congenital anomalies (9 sources) Facial asymmetry; Translations: [Congenital musculoskeletal deformities of skull, face, and jaw] Chronic Other diseases of veins and lymphatics (1 source) Other specified noninfective disorders of lymphatic vessels and lymph nodes; Translations: [Oth noninfective disorders of lymphatic vessels and nodes] Onset: 2 Chronic Other ear and sense organ disorders (1 source) Impacted cerumen; Translations: [Impacted cerumen] Episodic Other eye disorders (9 sources) Ptosis of eyebrow; Translations: [Ptosis of eyelid, unspecified] Episodic Other eye disorders (9 sources) Eye symptom; Translations: [Other ill-defined disorders of eye] Episodic Other eye disorders (9 sources) Disorder of eyelid; Translations: [Lid retraction or lag] Episodic Other gastrointestinal disorders (9 sources) Finding related to ability to perform oral motor function; Translations: [Dysphagia, oral phase] Episodic Other hematologic conditions (18 sources) History of anemia; Translations: [Personal history of diseases of blood and blood-forming organs] Episodic Other hereditary and degenerative nervous system conditions (9 sources) Oral dyskinesia; Translations: [Orofacial dyskinesia] Chronic Other nervous system disorders (20 sources) H/O: respiratory disease; Translations: [Personal history of other specified diseases] Episodic Other nervous system disorders (9 sources) Seventh cranial nerve finding; Translations: [Other facial nerve disorders] Episodic Other nutritional; endocrine; and metabolic disorders (20 sources) Body mass index (BMI) 50-59.9 , adult; Translations: [Body mass index (BMI) 45.0-49.9, adult] Onset: 3 Resolved: 6 09-24-2014 Chronic Other nutritional; endocrine; and metabolic disorders (2 sources) Obesity; Translations: [Obesity, unspecified] 03-29-2007 Chronic Other nutritional; endocrine; and metabolic disorders (1 source) Body mass index (BMI) 45.0-49.9, adult; Translations: [Body mass index [BMI] 45.0-49.9, adult] Onset: 2 Chronic Other nutritional; endocrine; and metabolic disorders (1 source) Morbid (severe) obesity due to excess calories; Translations: [Morbid (severe) obesity due to excess calories] Onset: 2 Chronic Other nutritional; endocrine; and metabolic disorders (1 source) Obesity, unspecified; Translations: [Obesity, unspecified] Onset: 2 Chronic Other nutritional; endocrine; and metabolic disorders (18 sources) H/O: diabetes mellitus; Translations: [Personal history of other endocrine, metabolic, and immunity disorders] Episodic Other screening for suspected conditions (not mental disorders or infectious disease) (18 sources) Measurement finding above reference range; Translations: [Other nonspecific findings on examination of blood] Episodic Other skin disorders (18 sources) Mass of neck; Translations: [Swelling, mass, or lump in head and neck] Episodic Residual codes; unclassified (2 sources) Sleep apnea; Translations: [Sleep apnea, unspecified] 03-29-2007 Chronic Residual codes; unclassified (1 source) Obstructive sleep apnea (adult) (pediatric); Translations: [Obstructive sleep apnea (adult) (pediatric)] Onset: 2 Chronic Residual codes; unclassified (18 sources) History of clinical finding in subject; Translations: [Personal history of other specified diseases] Episodic Residual codes; unclassified (9 sources) Lip finding; Translations: [Diseases of lips] Episodic Residual codes; unclassified (9 sources) Contact with and (suspected) exposure to other hazardous, chiefly nonmedicinal, chemicals; Translations: [Chemical exposure] Episodic Superficial injury; contusion (4 sources) Hematoma of neck; Translations: [Contusion of face, scalp, and neck except eye(s)] 05-04-2022 Episodic Thyroid disorders (5 sources) Goiter; Translations: [Goiter, unspecified] Onset: 4 09-21-2023 Chronic Unclassified (4 sources) LEFT TOTAL PAROTIDECTOMY, INFRATEMPORAL ACCESS AND REMOVAL OF PARAPHARYNGEAL MASS 04-22-2022 Past or Other Problems Problem Classification Problem Date Documented Date Episodic/Chronic Coronary atherosclerosis and other heart disease (6 sources) Coronary angioplasty status; Translations: [Presence of coronary angioplasty implant and graft] Onset: 12-18-2010 12-18-2010 Episodic Diseases of mouth; excluding dental (12 sources) Mass of parotid gland; Translations: [Other specified diseases of the salivary glands] Onset: 06-03-2022 05-06-2022 Episodic Lymphadenitis (20 sources) Hilar lymphadenopathy ; Translations: [Enlargement of lymph nodes] Onset: 05-29-2022 Episodic Other aftercare (1 source) group home (current) use of aspirin; Translations: [vermin exterminator (current) use of aspirin] Onset: 06-10-2022 Episodic Other aftercare (1 source) vermin exterminator (current) use of oral hypoglycemic drugs; Translations: [group home (current) use of oral hypoglycemic drugs] Onset: 06-10-2022 Episodic Other aftercare (1 source) group home (current) use of antithrombotics/antip latelets; Translations: [group home (current) use of antithrombotics/antip latelets] Onset: 06-10-2022 Episodic Other circulatory disease (5 sources) Abnormal result of cardiovascular function study, unspecified; Translations: [Abnormal result of cardiovascular function study, unspecified] Onset: 12-18-2010 12-18-2010 Episodic Other diseases of veins and lymphatics (1 source) Venous insufficiency (chronic) (peripheral); Translations: [Venous insufficiency (chronic) (peripheral)] Onset: 06-03-2022 Episodic Other eye disorders (2 sources) Eyelid retraction right lower eyelid; Translations: [Eyelid retraction right lower eyelid] Onset: 06-10-2022 Episodic Other eye disorders (2 sources) Eyelid retraction left lower eyelid; Translations: [Eyelid retraction left lower eyelid] Onset: 06-10-2022 Episodic Other eye disorders (1 source) Unspecified lagophthalmos left eye, unspecified eyelid; Translations: [Unspecified lagophthalmos left eye, unspecified eyelid] Onset: 06-10-2022 Episodic Other lower respiratory disease (5 sources) Dyspnea; Translations: [Shortness of breath] Onset: 03-09-2013 03-09-2013 Episodic Other nervous system disorders (1 source) Disorder of facial nerve, unspecified; Translations: [Disorder of facial nerve, unspecified] Onset: 08-18-2022 Episodic Other nervous system disorders (1 source) Amador's palsy; 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] Onset: 06-10-2022 Episodic Spondylosis; intervertebral disc disorders; other back problems (1 source) Spinal stenosis, lumbar region without neurogenic claudication; Translations: [Spinal stenosis, lumbar region without neurogenic miles] Onset: 06-10-2022 Episodic Unclassified (20 sources) Family history of ischemic heart disease and other diseases of the circulatory system; Translations: [FH: Raised blood lipids] Onset: 04-09-2016 03-20-2014 Episodic Unclassified (1 source) Onset: 09-21-2023 09-21-2023 Results Test Name Value Interpretation Reference Range Facil ity Vital Signs Date Time Vital Sign Value Performing Clinician Faci lity 09-21-2023 14:57-0500 Body height 172.7 cm Monty Fontenot MD Work Phone: [facility] 09-21-2023 14:57-0500 Body mass index (BMI) [Ratio] 41.36 kg/m2 Monty Fontenot MD Work Phone: [facility] 09-21-2023 14:57-0500 Body weight 123.38 kg Monty Fontenot MD Work Phone: [facility] 05-25-2023 16:06-0400 Body height 172.72 cm Oma Head Work Phone: TA-Lrwrzzkvvbbogt-Ry [place] Work Phone: 05-25-2023 16:06-0400 Body mass index (BMI) [Ratio] 40.52 kg/m2 Oma Head Work Phone: GM-Tqhswrftxpxxba-Up [place] Work Phone: 05-25-2023 16:06-0400 Body surface area Derived from formula 2.31 m2 Oma Head Work Phone: EE-Utcaccjpshvlxr-Jq [place] Work Phone: 05-25-2023 16:06-0400 Body weight 120.88 kg Oma Head Work Phone: UW-Lutxqbnderomah-Cq [place] Work Phone: 05-25-2023 16:06-0400 0 1 Oma Head Work Phone: WM-Wpoxwksfjlxmkq-Qy [place] Work Phone: Encounters Encounter Date Encounter Type Care Provider Facility Start: 09-21-2023 End: 09-21-2023 ambulatory [facility] Ambulatory Start: 09-21-2023 End: 09-21-2023 Office outpatient visit 15 minutes Monty Fontenot MD Work Phone: [facility] Procedures Date Procedure Procedure Detail Performing Clinician Start: 10-12-2017 End: 10-12-2017 *Hepatic Function Panel Silviano Oconnell Start: 10-12-2017 End: 10-12-2017 Lipid panel [AGGREGATE] Silviano Oconnell Start: 04-20-2017 End: 04-23-2017 *Hepatic Function Panel Silviano Oconnell Start: 04-20-2017 End: 04-20-2017 Follow Up Appt 6 months Silviano Oconnell Start: 04-20-2017 End: 04-20-2017 JHR Eliseo Oconnor MD Start: 04-20-2017 End: 04-23-2017 Lipid panel [AGGREGATE] Silviano Oconnell Start: 10-13-2016 End: 10-13-2016 Follow Up Appt 6 months Silviano Oconnell Start: 10-13-2016 End: 10-13-2016 WAYNE Oconnor MD Start: 04-09-2016 End: 04-10-2016 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 Caryl Presley PA-C Work Phone: Start: 04-09-2016 End: 04-10-2016 Follow Up Appt 6 months Caryl hernandez PA-C Work Phone: Start: 04-09-2016 End: 04-10-2016 Follow Up Appt Other Caryl gibson PA-C Work Phone: Start: 04-09-2016 End: 04-17-2016 [facility]-C Work Phone: Start: 04-09-2016 End: 04-10-2016 Referral to general surgeon Eliseo Mcmillan i, MD Start: 10-09-2015 End: 10-09-2015 Follow Up Appt 6 months Silviano Oconnell Start: 10-09-2015 End: 10-09-2015 WAYNE Oconnor MD Start: 04-02-2015 End: 04-03-2015 Documentation of current medications Eliseo Oconnor MD Start: 04-02-2015 End: 10-09-2015 Follow Up Appt 6 months Silviano Oconnell Start: 04-02-2015 End: 10-09-2015 WAYNE Oconnor MD Start: 09-24-2014 End: 09-24-2014 MICHAELA Presley PA-C Work Phone: Start: 09-24-2014 End: 09-24-2014 Follow Up Appt 6 months Caryl hernadnez PA-C Work Phone: Start: 03-20-2014 End: 03-20-2014 Follow Up Appt 6 months Silviano Oconnell Start: 03-20-2014 End: 03-20-2014 WAYNE Oconnor MD Start: 09-12-2013 End: 09-12-2013 MICHAELA Presley PA-C Work Phone: Start: 09-12-2013 End: 09-12-2013 Follow Up Appt 6 months Caryl hernandez PA-C Work Phone: Start: 09-12-2013 End: 09-18-2014 Nuclear stress test -exercise Caryl Presley PA-C Work Phone: Start: 03-09-2013 End: 08-23-2013 Abrahan Oconnor MD Start: 03-09-2013 End: 03-09-2013 Follow Up Appt 6 months Silviano Oconnell Start: 03-09-2013 End: 03-09-2013 WAYNE Oconnor MD Start: 08-10-2012 End: 08-10-2012 Follow Up Appt 6 months Silviano Oconnell Start: 11-20-2011 End: 11-20-2011 Follow Up Appt 6 months Silviano Oconnell Plan of Treatment Date Care Activity Detail Author Start: 08-07-2026 DTaP/Tdap/Td Vaccine s (2 - Td or Tdap) DTaP/Tdap/Td Vaccines (2 - Td or Tdap) [facility] Start: 10-07-2023 COVID-19 Vaccine (4 - Moderna series) COVID-19 Vaccine (4 - Moderna series) [facility] Start: 09-21-2023 FUV, Provider: Monty Fontenot, Status: Pen, Time: 2:45 PM FUV, Provider: Monty Fontenot, Status: Pen, Time: 2:45 PM DC-Dtbgaspkhycmom-Tfxux ake Work Phone: Start: 09-21-2023 End: 09-21-2024 Creatinine [Mass/volume] in Serum or Plasma Creatinine, Serum Lab Routine Malignant neoplasm of parotid gland (CMS/HCC) Expected: 09/21/2023 (Approximate), Expires: 09/21/2024 [facility] Work Phone: Immunizations Immunization Date Immunization Notes Care Provider Fa cility 06-09-2022 influenza virus vacc ine, unspecified formulation Monty Fontenot MD Work Phone: [facility] Work Phone: 09-24-2021 Moderna COVID-19 Vac cine 100 MCG/0.5ML Intramuscular Suspension Oma Head Work Phone: [facility] Work Phone: 12-12-2020 Moderna COVID-19 Vac cine 100 MCG/0.5ML Intramuscular Suspension Oma Head Work Phone: [facility] Work Phone: 11-14-2020 Moderna COVID-19 Vac cine 100 MCG/0.5ML Intramuscular Suspension Oma Head Work Phone: [facility] Work Phone: 05-23-2019 pneumococcal polysaccharide vaccine, 23 valent Oma Okeefe Adilene Work Phone: [facility] Work Phone: 04-23-2017 pneumococcal conjuga te vaccine, 13 valent Oma Okeefe Abelsaige Work Phone: [facility] Work Phone: 08-07-2016 tetanus toxoid, redu sergey diphtheria toxoid, and acellular pertussis vaccine, adsorbed Oma Okeefe Adilene Work Phone: [facility] Work Phone: Payers Date Payer Category Payer Medicare [employer] MEDICARE A ETNA MACIAS MEDICARE [id number] 2023-Present [address] [place] [address] [id number] 2023 Medicare [id number] 2021 Unknown 2021 Unknown [id number] 1954 Unknown [id number] 1954 Unknown [id number] 1954 Unknown [id number] 1954 Unknown [id number] 1954 Unknown [id number] [id number] 1954 Unknown [id number] [id number] 1954 Unknown [id number] [id number] 1954 Unknown [id number] 1954 Unknown [id number] [id number] 1954 Unknown [id number] [id number] 1954 Unknown [id number] 1954 Unknown [id number] Unknown [id number] Social History Date Type Detail Facility Start: 09-21-2023 Non-smoker Non-smoker [facility] Work Phone: Tobacco smoking consumption unknown [facility] Start: 07-22-2022 End: 09-21-2023 Tobacco smoking status NHIS Never smoked tobacco [facility] Start: 03-29-2007 End: 07-22-2022 Alcohol intake Current non-drinker of alcohol (finding) [facility] Start: 1955 Sex Assigned At Not on file C [facility] Start: 07-22-2022 End: 09-21-2023 Tobacco use and exposure Smokeless tobacco non-user [facility] Start: 07-12-2022 End: 09-21-2023 Exposure to SARS-CoV-2 (event) Not sure [facility] Start: 09-21-2023 Tobacco use panel [facility] Work Phone: Medical Equipment Procedure Code Equipment Code Equipment Origin al Text Equipment Identifier Dates Eyelid Weight, 1.4gram, [place], Thin Profile Case [id number] Start: 06-10-2022 Functional Status Date Assessment Result Facility Functional observable [facility] Mental Status Date Assessment Result Facility 05-04-2022 Cognitive functi ons [id number] [facility] Clinical Notes 01-08-2022 to 09-21-2023 Monty Fontenot MD - 09/21/2023 2:45 PM EST Note Date & Type Note Facility 09-21-2023 History of Present illness Narrative Provider Impressions 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 He is now status post surgery and radiation therapy. Some repeat scanning will be ordered. Multiple pulmonary nodules that turned out to be consistent with granulomas. Large goiter which extends underneath the sternum on the right side. At some point we may have to pursue that. I will see him after the scan. Chief Complaint Follow-up regarding the management of a left parapharyngeal mass History of Present Illness This gentleman was seen in February 2022 at the request of a local colleague. For 2 months or so he has had some discomfort around the left face and ear. This led to some imaging. He had both an MRI as well as a CT scan. They both show a mass in the deep portion of the left parotid. This was a fairly sizable mass. It did look fairly well-defined but on biopsy it was felt that this may be malignant. On May 04, 2022 he underwent surgery. This turned out to be malignant and the facial nerve unfortunately was going through the tumor and therefore the nerve had to be sacrificed. 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 He finished his radiation therapy on July 29, 2022. He was also found to have some pulmonary nodules which were biopsied in May and consistent with noncaseating granulomas. He has had a few more stitches around his eyes and is perfectly happy with that at this point. He had some scanning done on October 29, 2022. I cannot appreciate any evidence of any tumor recurrence. At the same time he has a fairly large goiter that extends substernally. He really does not have any symptoms. Physical Exam Examination of the oral cavity and oropharynx shows evidence of dryness but no evidence of any thing significant. There is no evidence of any trismus. Palpation of the parotid, neck, and thyroid field fails to show any worrisome masses or adenopathies. More specifically I cannot appreciate this right-sided goiter. He does have a significant facial weakness. documented in this encounter [facility] Work Phone: 08-31-2022 History of Present illness Narrative 08.31.22Notes some left eye irritation and pain which resolves with closure of the eye and with gentle pressure. He has been using eye drops and eye ointment as needed.eye closure complete on leftimproved inflammation at the lower lidcornea healthy without significant conjunctival injectionectropion present1% lidocaine with epinephrine injected at lateral upper and lower eyelidgray line incisions performed at lateral lid margin, upper and lowerpreparation for tarsorrhaphy with limited dissection of the lamellar layersvicryl placed between lid margins for posterior lamella and gut suture at the anterior lamellaointment appliedpt tolerated welldiscussed care of the eyelid while healingpt opts not to perform any other facial interventions at this timeRTC 6 monthsIH 06.26.22s/p left eyelid weight, and tarsal strip procedure, canthoplastyeye closure completemild inflammation at the lower lidcornea healthyplan is for adjuvant XRTRTC 2 months for re-evaluationChief Complaint: Facial paralysisReferring Provider: Dr. Moscoso: JOSE FRANCISCO MULLINS is a 66 year Non- or male who was referred for evaluation of facial paralysis.Onset: aprilide: leftSeverity: flaccidCause of paralysis: malignant resection, radical parotidectomyPrimary concerns: incomplete eyelid closure, flaccid facial paralysisDry eye history: frequent tearing, has been using artifiical tearsPrevious interventions: noneA 14 organ review of systems was reviewed with the patient. Pertinent items are noted in HPI. He denies otalgia, odynophagia, dysphagia, dysarthria, voice changes, hemoptysis, or weight loss.Past, family, and social history obtained but not pertinent to current problem.Physical ExamGeneral: Well-developed and well-nourished in appearance.Skin: No rashes or concerning lesions on the visible portions of the skin.Eyes: Extraocular movements intact. Visual leo grossly normal.Ears: Pinna are normal in shape and position. External canals are patent.Nose: Dorsum is midline. Septum is midline and turbinates are normal on anteriorrhinoscopy.Oral Cavity/Oropharynx: Dentition is intact. Mucous membranes moist. No masses orlesions. Tonsils are symmetric and non-obstructive.Neck: Midline trachea without masses or lesions. Thyroid is normal in size.Lymphatics: No palpable cervical lymphadenopathyRespiratory: No respiratory distress. Quiet breathing without stertor or stridor.Cardiovascular: Regular rate and rhythm. Warm extremities with equal pulses.Psych: Normal mood and affect. Judgement and insight appropriate.Neuro: Alert and oriented. CN II-XII grossly intact. No focal deficits.Musculoskeletal: Gait intact. Moves all extremities well without apparent deformities.A comprehensive facial examination was performed with the following highlights:HB: 6Appearance at rest: asymmetricUpper third exam:Brow: ptosis presentUpper eyelid: incomplete closureLower eyelid: ectropion presentCorneal exam: healthyBells phenomenon: partialMiddle third exam:NL fold: blunted on the leftOral commissure: asymmetry, droop on the leftLower lip: pulled to the rightLower third exam: absent movement on the left [facility]ck[id number] Work Phone: documented in this encounter [facility]11-09-2022 History and physical note* Haris Love MD - 07/22/2022 10:28 AM EST Hematology and Medical Oncology PATIENT NAME: Jose Francisco Mullins. CLINIC NO: [id number]. ATTENDING PHYSICIAN: Haris Love MD. DATE OF SERVICE:07/22/2022. 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 Head for an opinion regarding anemia. My final recommendations will be communicated back to the requesting physician by way of shared Medical record or letter to requesting physician via US mail. PERFORMANCE STATUS:90% HPI: 67-year-old gentleman with history of diabetes mellitus and stage 3, chronic kidney disease who presented with a normocytic normochromic anemia. His initial evaluation showed an iron saturation of 15% He was started on ferrous sulfate and complaint of constipation and upset stomach. He did not continue iron for anemia for several months. 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 Fontenot at [facility]. His parotid tumor was completely resected, and he is c urrently receiving adjuvant radiation with Dr. Zaid Dallas. He is doing well with exception of radiation dermatitis and mucositis. He has difficulty swallowingwith dry mucous in the morning. He also complain of difficulty swallowing and possible thrush. Despite his treatment he has no severe fatigue no clinical bleeding or bruising. No change in bowel habits; no blood in stool or black tarry stool. His stool was tested for Hemoccult earlier this year andit was negative. He has no shortness of breath, palpitation, dizziness or lightheadedness. Mild fatigue from radiation therapy. No family history of anemia, and no previous blood transfusion. MEDICATIONS: Current Outpatient Medications Medication Sig clopidogrel (PLAVIX) 75 mg ORAL Tab Take one(1) tablet daily. blood sugar diagnostic (FREESTYLE TEST) IN VITRO Strp Use as directed. glyBURIDE 5 mg ORAL Tab Take one(1) tablet daily. pioglitazone (ACTOS) 30 mg ORAL Tab Take one(1) tablet daily. metFORmin XR (GLUCOPHAGE XR) 500 mg ORAL Tb24 Take two(2) tablets twice daily. metoprolol succinate XL (TOPROL XL) 50 mg ORAL Tb24 Take one(1) tablet daily. lisinopril 10 mg ORAL Tab Take one(1) tablet daily. atorvastatin (LIPITOR) 20 mg ORAL Tab Take one(1) tablet daily. Aspirin 81 mg ORAL Tab Take one(1) tablet daily. Niacin (Antihyperlipidemic) (NIASPAN) 1,000 mg ORAL TbSR Take one(1) tablet daily. No current facility-administered medications for this visit. . ALLERGIES: ALLERGIES Allergen Reactions Bees . PAST MEDICAL HISTORY: PAST MEDICAL HISTORY Diagnosis Date CORONARY ATHEROSCLER UNSPEC VESSEL DIABETES MELLITUS TYPE II-UNCOMPL ESOPHAGEAL REFLUX OBESITY NOS SLEEP APNEA NOS . PAST SURGICAL HISTORY:No past surgical history on file.. FAMILY HISTORY: FAMILY HISTORY Problem Relation Age of Onset Diabetes Mother Heart Mother Diabetes Maternal Aunt Heart Maternal Aunt Heart Father [place] Heart Brother [place] . SOCIAL HISTORY: Social History Tobacco Use Smoking status: Never Substance Use Topics Alcohol use: No . REVIEW OF SYSTEMS: CONSTITUTIONAL: No fevers, chills, nightsweats, unintended weight loss HEENT: Denies frequent or severe heaches, nasal congestion/sinus symptoms, problematic allergy problems. + Radiation dermatitis and difficulty swallowing. EYES: No diplopia or blurry vision. CARDIOVASCULAR: No chest pain, dyspnea, palpitations, orthopnea, PND, ankle edema. PULM: No dyspnea, unexplained cough. GI: No dysphagia/odynophagia, problematic reflux, constipation, diarrhea, changes in stool habits, hematochezia, melena. : No new urinary complaints, including dysuria, gross hematuria or pyuria. NEURO: No new balance problems, peripheral weakness/paresthesias or numbness of concern. MUSC-SKEL: No new joint pain, swelling, or erythema. PSY: No concerns regarding depression, anxiety or panic. INTEGUMENTARY: No new skin changes (rash, new or changing mole, new growth) PHYSICAL EXAMINATION: BP 113/58 Pulse 78 Temp 97.8 Ht 5' 7.126 (1.71m) Wt 298 lb 8 oz (135.4kg) SpO2 95% BMI46.58 kg/(m^2). HEENT: Head is normocephalic, atraumatic. Sclerae white, conjunctivae pink. PEERL. EOMs are intact.Oropharynx no mucositis, possible thrush in the left cheek mucosa. NECK: Radiation dermatitis; erythema with exfoliation of skin in the lower neck LYMPHATICS: There is no palpable adenopathy in the neck, supraclavicular region, axillae, or groin. LUNGS: Lungs are clear to percussion and auscultation. HEART: Heart is normal without murmurs, gallops, or rubs. ABDOMEN: Obese, soft and nontender without organomegaly. No masses can be palpated. EXTREMITIES: Are without edema. No petechia or ecchymosis. NEUROLOGIC: Exam is physiologic LABORATORY DATA: Component Latest Ref Rng & Units 07/22/2022 WBC 3.70 - 11.00 k/uL 6.95 RBC 4.20 - 6.00 m/uL 4.47 Hemoglobin 13.0 - 17.0 g/dL 13.0 Hematocrit 39.0 - 51.0 % 39.9 MCV 80.0 - 100.0 fL 89.3 MCH 26.0 - 34.0 pg 29.1 MCHC 30.5 - 36.0 g/dL 32.6 RDW-CV 11.5 - 15.0 % 16.4 (H) Platelet Count 150 - 400 k/uL 170 MPV 9.0 - 12.7 fL 11.2 Neut% % 78.5 Abs Neut (ANC) 1.45 - 7.50 k/uL 5.46 Lymph% % 7.2 Abs Lymph 1.00 - 4.00 k/uL 0.50 (L) Cambria% % 9.4 Abs Cambria <0.87 k/uL 0.65 Eosin% % 4.0 Abs Eosin <0.46 k/uL 0.28 Baso% % 0.6 Abs Baso <0.11 k/uL 0.04 Immature Gran % % 0.3 IMMATURE GRANS (ABS) <0.10 k/uL <0.03 NRBC /100 WBC 0.0 Absolute nRBC <0.01 k/uL <0.01 DTYPE Auto Retic % 0.4 - 2.0 % 1.7 Abs Retic 0.018 - 0.100 M/uL 0.077 Component Latest Ref Rng & Units 07/22/2022 Iron 41 - 186 ug/dL 50 TIBC 232 - 386 ug/dL 276 Transferrin Saturation 15.0 - 57.0 % 18.1 Folate >4.7 ng/mL 6.8 Vitamin B12 232 - 1,245 pg/mL 377 Ferritin 30.3 - 565.7 ng/mL 113.0 Component Latest Ref Rng & Units 07/22/2022 Glucose 74 - 99 mg/dL 207 (H) BUN 9 - 24 mg/dL 47 (H) Creatinine 0.73 - 1.22 mg/dL 1.38 (H) Sodium 136 - 144 mmol/L 135 (L) Potassium 3.7 - 5.1 mmol/L 4.7 Chloride 97 - 105 mmol/L 102 CO2 22 - 30 mmol/L 18 (L) Anion Gap 9 - 18 mmol/L 15 Calcium 8.5 - 10.2 mg/dL 9.4 eGFR >=60 mL/min/1.73m 56 (L) ASSESSMENT/PLAN: 67-year-old gentleman with anemia of chronic disease secondary to diabetes and stage 3a chronic renal failure. -He is asymptomatic from anemia. No evidence of iron deficiency anemia at this time. 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 Zaid Gregg ointment for radiation dermatitis -Start nystatin swish and swallow 500,000 units 4 times daily throughout radiation treatment and asneeded after completion I spent 45 minutes in the visit, with more than 50% of the total iqux-ig-pios time of the visit in counseling / coordination of care. Haris Love MD. ELECTRONICALLY SIGNED Cc: Dr. Florin Mar [facility] Miscellaneous Notes* Telephone Encounter - VINAYAK Belle - 07/15/2022 10:05 AM EDT Spoke with patient and scheduled for 07/20. Patient wanted to wait one week to make sure his can take off work to come with him. He didn't want a sooner appointment. * Telephone Encounter - Sarah Graves LPN - 07/14/2022 4:[address] Love reviewed, returned to [facility] desk. Sarah Graves LPN * Telephone Encounter - VINAYAK Belle - 07/14/2022 3:50 PM EDT New patient referral received and given to dr love for review. DX ANEMIA (D64.9) INTOLERANT TO ORAL IRON, RECHECK BLOOD WORK. MAY NEED TO CONSIDER IV IRON. [facility]OV [facility] History of Present illness Narrative* IH 06.26.22 * s/p left eyelid weight, and tarsal strip procedure, canthoplasty * eye closure complete * mild inflammation at the lower lid * cornea healthy * plan is for adjuvant XRT * RTC 2 months for re-evaluation * Chief Complaint: Facial paralysis * Referring Provider: Dr. Fontenot * HPI: JOSE FRANCISCO MULLINS is a 66 year Non- or male who was referred for evaluation of facial paralysis. * Onset: april 2022 * Side: left * Severity: flaccid * Cause of paralysis: malignant resection, radical parotidectomy * Primary concerns: incomplete eyelid closure, flaccid facial paralysis * Dry eye history: frequent tearing, has been using artifiical tears * Previous interventions: none * A 14 organ review of systems was reviewed with the patient. Pertinent items are noted in HPI. He denies otalgia, odynophagia, dysphagia, dysarthria, voice changes, hemoptysis, or weight loss. * Past, family, and social history obtained but not pertinent to current problem. * Physical Exam * General: Well-developed and well-nourished in appearance. * Skin: No rashes or concerning lesions on the visible portions of the skin. * Eyes: Extraocular movements intact. Visual leo grossly normal. * Ears: Pinna are normal in shape and position. External canals are patent. * Nose: Dorsum is midline. Septum is midline and turbinates are normal on anterior * rhinoscopy. * Oral Cavity/Oropharynx: Dentition is intact. Mucous membranes moist. No masses or * lesions. Tonsils are symmetric and non-obstructive. * Neck: Midline trachea without masses or lesions. Thyroid is normal in size. * Lymphatics: No palpable cervical lymphadenopathy * Respiratory: No respiratory distress. Quiet breathing without stertor or stridor. * Cardiovascular: Regular rate and rhythm. Warm extremities with equal pulses. * Psych: Normal mood and affect. Judgement and insight appropriate. * Neuro: Alert and oriented. CN II-XII grossly intact. No focal deficits. * Musculoskeletal: Gait intact. Moves all extremities well without apparent deformities. * A comprehensive facial examination was performed with the following highlights: * HB: 6 * Appearance at rest: asymmetric * Upper third exam: * Brow: ptosis present * Upper eyelid: incomplete closure * Lower eyelid: ectropion present * Corneal exam: healthy * Berlin phenomenon: partial * Middle third exam: * NL fold: blunted on the left * Oral commissure: asymmetry, droop on the left * Lower lip: pulled to the right * Lower third exam: absent movement on the left SJ-Lywknytoprbdba-Xxxcckik Work Phone: 1([phone] 480-114609-28-2022 NotePost Operative Note: PreOp Diagnosis: facial paralysis Post-Procedure Diagnosis: facial paralysis Procedure: 1. Left upper eyelid [place] weight placement 2. Left ectropion repair, tarsal strip 3. Left lower lid Tarsys placement, spacer graft Surgeon: Lamar Goddard MD Resident/Fellow/Other Health Economist: Pita Pino MD Anesthesia: general LMA Estimated Blood Loss (mL): 5 cc Specimen: no Findings: see operative report Implants: [place] weight in left upper lid, tarsys implant in left lower lid Operative Report Dictated: Dictation: not applicable - note contains Operative Report Operative Report: Patient presents with a history of left sided facial paralysis, lagopthalmos, and ower lid retraction. The decision was made for operative repair with an eyelid weight, spacer graft, tarsal strip. The patient understood risk and alternatives and wished to proceed. The patient was sedated for the procedure. 1% lidocaine with epinephrine was injected at all planned sites for incision. Attention was turned to the left upper eyelid for placement of [place] chain weight. Skin and orbicularis flap was undermined and the tarsal plate was identified. A size 1.4 G [place] chain was then secured inside a soft tissue pocket within the left upper eyelid. The muscle was then closed overtop and the skin closed with both interrupted and running 5-0 fast absorbing gut suture. A lateral incision was made along a crease and a skin, orbicularis flap was elevated over the lower eyelid for precise pocket and placement of a fashioned tarsys allograft material for soft tissue reinforcement of the lower eyelid. This incision was closed with interrupted fast gut suture. Finally, a lower eyelid tarsal strip was created following canthotomy and cantholysis. This tarsal strip was trimmed and freshened in preparation for suspension. 6-0 vicryl suture was utilized and the tarsal strip was then inset into the lateral orbit periosteum to appropriately position the lower eyelid margin. This was secured with vicryl suture in an interrupted fashion, following by fast gut for the skin reapproximation. Ointment was applied to all incisions. Attestation: Note Completion: I am a:Resident/Fellow Attending AttestationI was present for the entire procedure Electronic Signatures: Pita Pino (Resident)) (Signed 10-Jun-2022 13:24) Authored: Post Operative Note, Note Completion Lamar Goddard) (Signed 11-Jun-2022 20:49) Authored: Post Operative Note, Note Completion Co-Signer: Post Operative Note, Note Completion Last Updated: 11-Jun-2022 20:49 by Lamar Goddard)[facility]09-16-2022 Chief complaint Narrative - Reported* An interactive audio and video telecommunication system which permits real time communications between the patient (at the originating site) and provider (at the distant site) was utilized to providethis telehealth service. * Verbal consent was requested and obtained from JOSE FRANCISCO MULLINS on this date, 05/29/2022 01:00 PM , for a telehealth visit. * New Patient evaluation. -Pulmonary MedicineCheryl Ville [id number] Work Phone: [phone] 271-151306-01-2022 History of Present illness Arianna saez was seen in February 2022 at the request of a local colleague. For the past 2 months or so he has had some discomfort around the left face and ear. This led to some imaging. He had both anMRI as well as a CT scan. They both show a mass in the deep portion of the left parotid. This is a fairly sizable mass. It did look fairly well-defined but on biopsy it was felt that this may be malig nant. On May 04, 2022 he underwent surgery. This turned out to be malignant in the facial nerve unfortunately was going through the tumor and therefore the nerve had to be sacrificed. 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 Final diagnosis has not been rendered yet. He waspresented at our tumor board and radiation was recommended. We also need to evaluate these multiplesmall adenopathies in his chest and upper abdomen. UP-Rknbypnatqcrqa-Mninqkli Work Phone: [phone]) 803-261406-01-2022 History of Present illness Arianna saez was seen in February 2022 at the request of a local colleague. For the past 2 months or so he has had some discomfort around the left face and ear. This led to some imaging. He had both anMRI as well as a CT scan. They both show a mass in the deep portion of the left parotid. This is a fairly sizable mass. It did look fairly well-defined but on biopsy it was felt that this may be malig nant. On May 04, 2022 he underwent surgery. This turned out to be malignant in the facial nerve unfortunately was going through the tumor and therefore the nerve had to be sacrificed. 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 Final diagnosis has not been rendered yet. He waspresented at our tumor board and radiation was recommended. We also need to evaluate these multiplesmall adenopathies in his chest and upper abdomen.[facility] Work Phone: 1([phone]) 182-799606-01-2022 History of Present illness Arianna saez was seen in February 2022 at the request of a local colleague. For 2 months or so he hashad some discomfort around the left face and ear. This led to some imaging. He had both an MRI as well as a CT scan. They both show a mass in the deep portion of the left parotid. This was a fairly sizable mass. It did look fairly well-defined but on biopsy it was felt that this may be malignant. On May 04, 2022 he underwent surgery. This turned out to be malignant and the facial nerve unfortunately was going through the tumor and therefore the nerve had to be sacrificed. 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 He finished his radiation therapy on July 29, 2022. He was also found to have some pulmonary nodules which were biopsied in May and consistent with noncaseating granulomas. He has had a few more stitches around his eyes and is perfectly happy with that at this point. Hehad some scanning done on October 29, 2022. I cannot appreciate any evidence of any tumor recurrence. At the same time he has a fairly large goiter that extends substernally. He really does not haveany symptoms.GM-Xahxpzhusubjil-Iysekmqh Work Phone: 1([phone]) 514-297004-28-2022 History of Present illness Arianna saez is seen at the request of a local colleague. For the past 2 months or so he has had some discomfort around the left face and ear. This led to some imaging. He had both an MRI as well as a CT scan. They both show a mass in the deep portion of the left parotid. This is a fairly sizablemass. It looks fairly well defined on MRI and is most likely benign. He is here today for further ma nagement.CS-Zhcnifgamxkdbn-Yeuxdkjb Work Phone: chief complaint Narrative - ReportedConsultation for the management of a left neck holoIL-Fqmeppdioxueai-Tfzzkyyl Work Phone: Evaluation note* Diagnosis Malignant neoplasm of parotid gland (CMS/HCC)- Primary Malignant neoplasm of parotid gland Substernal goiter documented in this encounter [facility] Work Phone: History of Present illness Narrative* COPD CAT Assessment The numbers in the [ ] represent the number the patient selected on the CAT Assessment form * I never cough: 0 [1] 2 3 4 5 I cough all the time * I have no phlegm (mucus) in my chest at all: 0 [1] 2 3 4 5 My chest is full of phlegm * My chest does not feel tight at all: 0 [1] 2 3 4 5 My chest feels very tight * When I walk up a hill or one flight of stairs I am not breathless: 0 1 2 3 [4] 5 When I walk up a hill or one flight of stairs I am very breathless * I am not limited doing any activities at home: 0 [1] 2 3 4 5 I am very limited doing activities at home * I am confident leaving my home despite my lung condition: [0] 1 2 3 4 5 I am not at all confident leaving my home because of my lung condition * I sleep soundly: [0] 1 2 3 4 5 I don't sleep soundly because of my lung condition * I have lots of energy: 0 1 [2] 3 4 5 I have no energy at all * (CAT) Score: 10. * Visit Type: The patient is being seen for a consultation regarding chronic obstructive pulmonary disease. * Patient's visit was converted to a virtual visit given current COVID- 19 pandemic. * Mr. Mullins is a 66 year old man, never smoker, being evaluated today for mediastinal/hilar lymphadenopathy. * PCP: Dr. Oma Head * Otolaryngology: Dr. Monty Fontenot * Oncology: Dr. Florin Mar ([place]) * HPI: Patient presents to pulmonary clinic today via virtual visit (video/audio encounter) for evaluation for recently found PET-avid mediastinal/hilar lymphadenopathy. Patient has a significant history of parotid gland cancer; recently underwent left total parotidectomy with facial nerve sacrifice on 05/04/22. A PET CT was obtained on 04/30/22 which revealed the before mentioned hypermetabolic LN in the chest. Patient recently met with an oncologist; Dr. Florin Mar from [facility];who had mentioned concern for this adenopathy finding and discussed likely moving forward with bronch/EBUS for evaluation. No current inhaler use. Denies SOB at rest, denies WAN; only if he were to exert himself. * He also denies orthopnea or lower leg edema. He has lost 30 pounds in the last 6 months. He also denies chronic cough. No hemoptysis. Denies wheezing. No night cough. No fever, shivering chills or night sweats. Denies a runny nose, sinus congestion or a tingling sensation in the back of his throat.Denies symptoms of heartburn. He denies chest pain. * He is short of breath when hurrying on level ground or walking up a slight hill (mMRC 1). * CAT Score Today: 10 * Previous Pulmonary History: * He has no history of recurrent infections or lung disease as a child. He has no previous lung history, never on oxygen or inhaler therapy. He has never been to pulmonary rehab. He has never had a lowdose screening CT for lung cancer. * Current/Past Inhalers & Nebulized Medications: None * Pulmonary/Significant Hospitalization History: * - Recent surgery 05/04/22 for parotid CA * - Anaphylactic Shock from bee sting 30 years ago - not intubated * Sleep History: * Has a CPAP; compliant nightly for the past 20 years. 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 * Currently works as: Retired * Mild asbestos exposure 50 years ago. No silica. Mild beryllium exposure. No inhaled metals. * No exposure to birds or exotic animals. * Family History: * No known family history of autoimmune disorders. * - Sister; asthma * - Sister; breast CA * Testing: * PFTs: None on record * PET CT * -04/30/22: 1. Hypermetabolic lesion within the left parotid gland consistent with biopsy-proven primary malignancy. 2. Multiple ecoh-va-xvvsxliset hypermetabolic mediastinal and upper abdominal lymph nodes as detailed above. Findings may be reactive in etiology although, neoplastic involvement cannot be excluded and continued attention on follow-up is recommended. * There are no spiritual/cultural practices/values/needs that are important to know * Initial Fall Risk Screening: * JOSE FRANCISCO has not fallen in the last 6 months. * Pain Scale: On a scale of 0 to 10, the patient rates the pain at 0. * Advance directives: * Living Will: Living will on file. * Healthcare POA: Health care proxy on file. * Tobacco Screening: JOSE FRANCISCO does not use tobacco. Has not used tobacco in the past 6 months. * Domestic Violence Screen: Does not feel threatened or abused physically, emotionally or sexually. Do you feel UNSAFE? * The patient feels safe in the home. * Depression/Suicide Screening: * During the past 2 weeks, the patient has not felt down, depressed or hopeless. * During the past 2 weeks, the patient has not felt little interest or pleasure in doing things. * Procedure or Sedation Areas: * patient has not had alcohol, recreational drugs, or prescription drugs for non-medical reasons [facility] -[facility] MedicineMary 3 Work Phone: Hospital Discharge instructions* Activity:activity as tolerated. May shower. May not drive while taking narcotics. No pushing, pulling, or lifting objects greater than 10 pounds for 2 week(s). Weight- bearing Instructions: full weight bearing. Other activity instructions: Slowly increase your activity each day. No strenuous or vigorous exercising until cleared by your surgeon. * Additional Orders:Additional Instructions: Keep left eye moist at all times with artifical tears toprevent dryness or abrasion of the eye. Tape the eyelid shut when sleeping or napping. Eye Care:At bedtime apply night time eye ointment. Then apply Vaseline to the patient's left eyebrow, left side of the bridge of nose, the lower & outer side bones of the the orbital socket (Zygomatic Bones).Cut a square of saran wrap to fit that area. Then firmly press the saran warp onto the areas with the Vaseline to form a moisture chamber. Please follow up with your PCP to discuss DM medications. * Call Provider If:Breathing faster than normal. Breathing harder than normal or having retractions. Fever of 100.4 F (38 C) or higher. Urinating less than normal, over 1 day. Acting very sleepy and difficult to awaken. Vomiting (throwing up) and not able to eat or drink for 12 hours. 3 or more loose, watery bowel movements in 24 hours (diarrhea). Any new concerning symptoms. * Follow Up Appointment 1:Physician/Dept/Service: Dr Mora for Referral: post op checkScheduled Date/Time: 19-May-2022 13:00[facility] Desk [id number] [place] [address] [place] [id number] Number: [phone] with questionsComments: Please arrive 10-15 minutes ea rly, bring photo ID, insurance information, and current list of medications. If unable to keep thisappointment, please call to cancel at least 24 hours prior to appointment. * Follow Up Appointment 2:Physician/Dept/Service: Dr. Yang for Referral: Gold Weight consultScheduled Date/Time: 25-May-2022 13:45Location: [facility] [id number] [place] [id number] Number: [phone] * Follow Up Appointment 3:Physician/Dept/Service: Primary care providerJuan for Referral: blood sugar/diabetes managementComments: Your blood sugars were >200 in the hospital and your A1c is elevated. Please work with your primary care provider to improve your diabetes control * Incision Care:Facial/Neck Incision Care: Cleanse all facial/neck incisions twice daily with baby shampoo or mild soap and water. Apply petroleum jelly/vaseline to incision line twice daily until incision has healed. [facility] Family History No Family History Records FoundUnknown Family Member Name Dates Details Heart problem: Mother Status:Active Family history of diabetes m ellitus: Mother(V18.0, Z83.3) Status:Active FH: heart attack: Father(V17 .3, Z82.49) Status:Active High serum cholestanol: Sist er Status:Active Family history of malignant neoplasm of breast: Sister(V16.3, Z80.3) Status:Active Unknown Family Member Name Dates Details Heart problem: Mother Status:Active Family history of diabetes m ellitus: Mother(V18.0, Z83.3) Status:Active FH: heart attack: Father(V17 .3, Z82.49) Status:Active High serum cholestanol: Sist er Status:Active Family history of malignant neoplasm of breast: Sister(V16.3, Z80.3) Status:Active Unknown Family Member Name Dates Details Heart problem: Mother Status:Active Family history of diabetes m ellitus: Mother(V18.0, Z83.3) Status:Active FH: heart attack: Father(V17 .3, Z82.49) Status:Active High serum cholestanol: Sist er Status:Active Family history of malignant neoplasm of breast: Sister(V16.3, Z80.3) Status:Active Unknown Family Member Name Dates Details Family history of malignant neoplasm of breast: Sister(V16.3, Z80.3) Status:Active High serum cholestanol: Sist er Status:Active FH: heart attack: Father(V17 .3, Z82.49) Status:Active Family history of diabetes m ellitus: Mother(V18.0, Z83.3) Status:Active Heart problem: Mother Status:Active Unknown Family Member Name Dates Details Heart problem: Mother Status:Active Family history of diabetes m ellitus: Mother(V18.0, Z83.3) Status:Active FH: heart attack: Father(V17 .3, Z82.49) Status:Active High serum cholestanol: Sist er Status:Active Family history of malignant neoplasm of breast: Sister(V16.3, Z80.3) Status:Active Unknown Family Member Name Dates Details Family history of malignant neoplasm of breast: Sister(V16.3, Z80.3) Status:Active High serum cholestanol: Sist er Status:Active FH: heart attack: Father(V17 .3, Z82.49) Status:Active Family history of diabetes m ellitus: Mother(V18.0, Z83.3) Status:Active Heart problem: Mother Status:Active Unknown Family Member Name Dates Details Heart problem: Mother Status:Active Family history of diabetes m ellitus: Mother(V18.0, Z83.3) Status:Active FH: heart attack: Father(V17 .3, Z82.49) Status:Active High serum cholestanol: Sist er Status:Active Family history of malignant neoplasm of breast: Sister(V16.3, Z80.3) Status:Active Unknown Family Member Name Dates Details Heart problem: Mother Status:Active Family history of diabetes m ellitus: Mother(V18.0, Z83.3) Status:Active FH: heart attack: Father(V17 .3, Z82.49) Status:Active High serum cholestanol: Sist er Status:Active Family history of malignant neoplasm of breast: Sister(V16.3, Z80.3) Status:Active Unknown Family Member Name Dates Details Heart problem: Mother Status:Active Family history of diabetes m ellitus: Mother(V18.0, Z83.3) Status:Active FH: heart attack: Father(V17 .3, Z82.49) Status:Active High serum cholestanol: Sist er Status:Active Family history of malignant neoplasm of breast: Sister(V16.3, Z80.3) Status:Active Unknown Family Member Name Dates Details Heart problem: Mother Status:Active Family history of diabetes m ellitus: Mother(V18.0, Z83.3) Status:Active FH: heart attack: Father(V17 .3, Z82.49) Status:Active High serum cholestanol: Sist er Status:Active Family history of malignant neoplasm of breast: Sister(V16.3, Z80.3) Status:Active Unknown Family Member Name Dates Details Heart problem: Mother Status:Active Family history of diabetes m ellitus: Mother(V18.0, Z83.3) Status:Active FH: heart attack: Father(V17 .3, Z82.49) Status:Active High serum cholestanol: Sist er Status:Active Family history of malignant neoplasm of breast: Sister(V16.3, Z80.3) Status:Active Unknown Family Member Name Dates Details Heart problem: Mother Status:Active Family history of diabetes m ellitus: Mother(V18.0, Z83.3) Status:Active FH: heart attack: Father(V17 .3, Z82.49) Status:Active High serum cholestanol: Sist er Status:Active Family history of malignant neoplasm of breast: Sister(V16.3, Z80.3) Status:Active Unknown Family Member Name Dates Details Heart problem: Mother Status:Active Family history of diabetes m ellitus: Mother(V18.0, Z83.3) Status:Active FH: heart attack: Father(V17 .3, Z82.49) Status:Active High serum cholestanol: Sist er Status:Active Family history of malignant neoplasm of breast: Sister(V16.3, Z80.3) Status:Active Unknown Family Member Name Dates Details Heart problem: Mother Status:Active Family history of diabetes m ellitus: Mother(V18.0, Z83.3) Status:Active FH: heart attack: Father(V17 .3, Z82.49) Status:Active High serum cholestanol: Sist er Status:Active Family history of malignant neoplasm of breast: Sister(V16.3, Z80.3) Status:Active Unknown Family Member Name Dates Details Heart problem: Mother Status:Active Family history of diabetes m ellitus: Mother(V18.0, Z83.3) Status:Active FH: heart attack: Father(V17 .3, Z82.49) Status:Active High serum cholestanol: Sist er Status:Active Family history of malignant neoplasm of breast: Sister(V16.3, Z80.3) Status:Active Unknown Family Member Name Dates Details Heart problem: Mother Status:Active Family history of diabetes m ellitus: Mother(V18.0, Z83.3) Status:Active FH: heart attack: Father(V17 .3, Z82.49) Status:Active High serum cholestanol: Sist er Status:Active Family history of malignant neoplasm of breast: Sister(V16.3, Z80.3) Status:Active Unknown Family Member Name Dates Details Heart problem: Mother Status:Active Family history of diabetes m ellitus: Mother(V18.0, Z83.3) Status:Active FH: heart attack: Father(V17 .3, Z82.49) Status:Active High serum cholestanol: Sist er Status:Active Family history of malignant neoplasm of breast: Sister(V16.3, Z80.3) Status:Active Chief Complaint Follow-up regarding the management of a left parapharyngeal masseye lid weight discussionFollow-up regarding the management of a left parapharyngeal massPOV surgery 06/10POV surgery 06/10FU- left facial paralysisFUV left facial paralysis, s/p eyelid weight removal 08/31/2023.Follow-up regarding the management of a left parapharyngeal mass Summary Purpose Advance Directives No Advanced Directives Records FoundNo Advanced Directives Records FoundNo Advanced Directives Records FoundNo Advanced Directives Records Found Reason for Referral Specialty Diagnoses / Procedures Referred By Contac t Referred To Contact Radiology Diagnoses Malignant neoplasm of parotid gland (CMS/HCC) Procedures [place] chest [place] [id number] [place] [id number] Referral ID Status Reason Start Date Expiration Date Visits Requested Visits Authorized [id number] Pending Review Perform Procedure 09/21/2023 09/20/2024 1 1 Specialty Diagnoses / Procedures Referred By Contac t Referred To Contact Radiology Diagnoses Malignant neoplasm of parotid gland (CMS/HCC) Procedures CT soft tissue [place] [address] [place] [address] Referral ID Status Reason Start Date Expiration Date Visits Requested Visits Authorized [id number] Pending Review Perform Procedure 09/21/2023 09/20/2024 1 1 Additional Source Comments <item><item> Privacy Markings (unrecogniz ed section and content) Section Author: Betty Hernandez PROHIBITION ON REDISCLOSURE OF CONFIDENTIAL INFORMATION This notice accompanies a disclosure of information concerning a client made to you with the consent of such client. Section Author: Betty Hernandez PROHIBITION ON REDISCLOSURE OF CONFIDENTIAL INFORMATION This notice accompanies a disclosure of information concerning a client made to you with the consent of such client. Source Comments (unrecognize d section and content) In the event this informatio n is protected by the Federal Confidentiality of Alcohol and Drug Abuse Patient Records regulations: The Federal rules restrict any use of the information to criminally investigate or prosecute any alcohol or drug abuse patient.[facility] the event this information is protected by the Federal Confidentiality of Alcohol and Drug Abuse Patient Records regulations: The Federal rules restrict any use of the information to criminally investigate or prosecute any alcohol or drug abuse patient.[facility] Reason for Visit (unrecogniz ed section and content) Care Teams (unrecognized sec tion and content) Template Fitter Relationship Specialty Start Date End Date Oma Head [address] [place] [address] PCP - General Family Medicine 07/13/22 Template Fitter Relationship Specialty Start Date End Date Oma Head MD [address] [facility] [place] [address] PCP - General 03/10/22 Gabe Sam MD [address] [facility] [place] [address] Referring Physician Otolaryngology 08/31/23 Deepak Mar DO [address] [facility] [address] [place] [address] Referring Physician Radiation Oncology 08/31/23 (unrecognized sect ion and content) No Status Records FoundNo Status Records FoundNo Status Records FoundNo Status Records Found INFORMATION SOURCE (unrecogn ized section and content) DATE CREATED AUTHOR AUTHOR'S ORGANIZ ATION 07/24/2022 [facility] DATE CREATED AUTHOR AUTHOR'S ORGANIZ ATION 05/27/2023 [facility] DATE CREATED AUTHOR AUTHOR'S ORGANIZ ATION 09/26/[address] [facility] FOR RECORDS PERTAINING TO PATIENTS WHO ARE OR HAVE BEEN ENROLLED IN A CHEMICAL DEPENDENCY/SUBSTANCEABUSE PROGRAM, SOME INFORMATION MAY BE OMITTED. This clinical summary was aggregated from multiple sources. Caution should be exercised in using it in the provision of clinical care. This summary normalizes information from multiple sources, and as a consequence, information in this document may materially change the coding, format and clinical context of patient data. In addition, data may be omitted in some cases. CLINICAL DECISIONS SHOULD BE BASED ON THE PRIMARY CLINICAL RECORDS. [facility] [employer] provides no warranty or guarantee of the accuracy or completeness of information in this document.
[2023-10-01 06:56] VITALS: BP 106/70; PULSE 69; RESP 16; TEMP 36.3; O2SAT 99; BMI 40.8
[2023-10-01] MEDS: Lactated Ringers 1,000 ML 15 ML IV (07:01)
--- NOTE | 2023-10-01 07:26 | HP.PCM_ITS ---
History and Physical Date of Admission: 10/01/23 Intake Vital Signs 01/19/2314:38 07/20/2313:36 07/22/2313:59 Height 5 ft 9 in 5 ft 9 in 5 ft 8 in Weight: 269 lb 4 oz 267 lb BMI 39.7 40.6 BP 107/88 H 104/66 Blood Pressure Location Rt brachial Rt brachial Position Sitting Sitting Respiration 18 17 Pulse 70 70 Pulse Source Monitor Monitor Temp 97.2 F L 96.2 F L Temp Source Temporal Pulse Oximetry (%) 95 98 Oxygen Delivery Method room air room air Intake Visit Reasons: colonoscopy Chief Complaint: colonoscopy Associate Director Regulatory Affairs Required: No Is patient in pain?: No Allergies bee venom protein (honey bee) Allergy (Severe, Verified 07/22/23 14:00) Anaphylaxis Medications aspirin 81 mg chewable tablet 81 mg PO DAILY 05/05/16 [History Confirmed 07/22/23] nitroglycerin 0.4 mg sublingual tablet (Nitrostat) 0.4 mg sublingual Q5M PRN CHEST PAIN 10/13/17 [History Confirmed 07/22/23] antiarthritic combination no.2 900 mg tablet (glucosamine-chondroitin) 1 tab PO QDAY SUPPLEMENT 10/21/17 [History Confirmed 07/22/23] metoprolol succinate 50 mg tablet,extended release 24 hr 50 mg PO DAILY #90 tabs 05/25/19 [History Confirmed 07/22/23] acetaminophen 650 mg tablet,extended release (Tylenol Arthritis Pain) 1,300 mg PO DAILY 05/28/20 [History Confirmed 07/22/23] metformin 500 mg tablet,extended release 24 hr 500 tablet PO BID 05/28/21 [History Confirmed 07/22/23] glimepiride 4 mg tablet 4 mg PO BID 05/01/22 [History Confirmed 07/22/23] dulaglutide 1.5 mg/0.5 mL subcutaneous pen injector 4.5 mg subcut QWEEK #2 mL 05/25/22 [History Confirmed 07/22/23] silver sulfadiazine 1 % topical cream 1 applic topical BID #85 grams 07/15/22 [Rx Confirmed 07/22/23] dapagliflozin propanediol 5 mg tablet (Farxiga) 10 mg PO DAILY 12/07/22 [History Confirmed 07/22/23] lisinopril 10 mg tablet 10 mg PO DAILY BP #90 tabs 05/21/23 [Rx Confirmed 07/22/23] atorvastatin 40 mg tablet 40 mg PO QHS #90 tabs 06/17/23 [Rx Confirmed 07/22/23] PFSH Medical History Anemia Atherosclerosis of coronary artery of [place] heart without angina pectoris CAD (coronary artery disease) Cancer of parotid gland Chronic venous insufficiency Degeneration of intervertebral disc of lumbosacral region Diabetes mellitus Edema leg Essential (primary) hypertension Facial nerve paralysis Hemosiderin staining Hypercholesterolemia Kidney disease Leg swelling Leg ulcer Lipodermatosclerosis Low back pain Lumbosacral stenosis Nonspecific abnormal unspecified cardiovascular function study Obesity Pulmonary nodules/lesions, multiple Radiculopathy of lumbosacral region Right bundle branch block Sleep apnea 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 He has never had a screening colonoscopy in the past. He denies any abdominal pain or blood in the stool. He has no family history of colon cancer. ROS General General: Yes weight change; No appetite, fatigue, colon cancer, breast cancer or weakness HEENT HEENT: Yes difficulty swallowing and eye surgery; No eye injury, swollen glands or hoarseness Endo Endocrine: Yes diabetes mellitus; No thyroid disease, thyroid cancer, Hair loss, heat intolerance or cold intolerance Skin Skin: No rash or changing moles Breast Breast: No left breast lump, right breast lump, nipple discharge, breast pain, abnormal mammogram, abnormal US or breast enlargement Musc Musculoskeletal: Yes back problems and arthritis; No rheumatoid arthritis, gout or joint pain Cardio Cardiovascular: Yes heart disease and heart stent; No murmur, pacemaker, atrial fibrillation, high blood pressure, heart attack, palpitations, shortness of breat with exertion or chest pain Psych Psychiatric: No depression, anxiety or hearing voices Resp Respiratory: No shortness of breath, Yes sleep apnea, No cough, No COPD, No asthma, No emphysema and No wheezing Gastro Gastrointestinal: No abdominal pain, No nausea or vomiting, No diarrhea, No constipation, No blood in stool, No acid reflux, No hemorrhoids, No ulcers, No gallbladder problem and No black,tarry stools Bird Hematologic: Yes blood thinners, No blood disorders, No bleeding, No anemia and No blood clots Additional Details: baby aspirin daily Neuro Neurologic: No system reviewed and no additional complaints, except as documented, No as per HPI, No abnormal gait, No abnormal hearing, No abnormal movements, No abnormal speech, No behavioral changes, No burning sensations, No confusion, No convulsions, No disequilibrium, No dizziness, No localized weakness, No frequent falls, No headache(s), No lack of coordination, No loss of vision, No memory loss, Yes numbness, No other visual disturbances, No radicular pain, No restless legs, No sensory deficit, No syncope, Yes tingling, No tremor(s), No weakness and No other Exam Const General: cooperative Orientation: alert and oriented x3 HENMT Head: normal to inspection Neck Neck: normal visual inspection and full ROM Chest Chest palpation & inspection: normal inspection of the chest Resp Effort & Inspection: normal respiratory effort Auscultation: clear to auscultation bilaterally Cardio Rate: regular rate Rhythm: regular rhythm GI Inspection: non-distended Palpation: soft and nontender Skin General: no rashes or lesions noted Neuro General: patient alert and patient oriented x3 Extrem General: full ROM Psych Appearance: grossly normal Mental Status: mental status grossly normal Assessment and Plan Assessment and Plan (1) Screen for colon cancer: Status: Acute Plan: I explained endoscopy in detail to the patient. I explained the risks including but not limited to stroke or heart attack with anesthesia, perforation of the GI tract, bleeding, infection. I explained that any of these could necessitate further emergency surgery. The patient understands and all questions were answered sufficiently. The patient wishes to proceed with procedure. Don Solano MD Pager: [facility] [address] [place] [address], [address] [place] [address] Office: I have examined the patient and the H&P has been reviewed. There are no clinical changes since date of exam.
[2023-10-01 08:56] LABS: Bedside Glucose 121 mg/dL (74-106)
--- OUTSIDE RECORDS SUMMARY | 2023-11-02 07:30 | XMS RPT_ITS | CCD ---
Author Name Unknown Address [id number] [place] [address] Organization [facility] Care Team Providers Care Meter Readers Supervisor Name Role Phone Loni Colon RN Unavailable Unavailable Tete Herrera Unavailable Unavailable Abiolais Harumi Y Unavailable Unavailable Zarina Courtney Unavailable Loni Colon RN Unavailable Unavailable Oma Head Unavailable Unavailable Unavailable Unavailable Unavailable Oma Head Unavailable Monty Fontenot Unavailable AlisaJeanau Unavailable Unavailable Lamar Goddard Unavailable Unavailable Oma Head Primary Care Provider [phone] OMA HEAD Referring OMA Mandujano Primary Care UnavailHARIS Viera Attending Unavailable OMA HEAD Primary Care UnavailHARIS Viera Referring Unavailable Angelita Mr. Darryl Davison Attending Unavaila Dr. Oma Parkinson Primary Care Dr. Aguila Lino Referring Unav MD OMNTY Lucas Referring Unavailable Dr. Oma Head Primary Care Aguila Lino Admitting Unavailable Aguila Morales Attending Unavailable Dr. Oma Head Primary Care Dr. Oma Farrell Primary Care MD MONTY Ledezma Attending Unavailable Dr. Oma Head Primary Care UnaMD MONTY Salas Attending Unavailable Adilene, Dr. Oma Ovalle Primary Care LAMAR Lake Attending Unavailab le LAMAR GODDARD Referring Unavailab michelle Head, Dr. Oma Ovalle Primary Care MD MONTY Ledezma Attending Unavailable MD MONTY FONTENOT Referring Unavailable Adilene, Dr. Oma Ovalle Primary Care MD MONTY Ledezma Attending Unavailable MD MONTY FONTENOT Referring Unavailable TINO, LAAMR TELLEZ Attending Unavailab michelle Head, Dr. Oma Ovalle Referring George Head, Dr. Oma Ovalle Primary Care George Head, Dr. Oma Ovalle Referring George Head, Dr. Oma Ovalle Primary Care LAMAR Lake Attending Unavailab le TINOLAMAR Attending Unavailab le LAMAR GODDARD Referring Unavailab le Adilene, Dr. Oma Ovalle Primary [facility] LAMAR Lake Admitting Unavailab michelle Head MD, Oma Ovalle Primary Care Provider Gabe Sam MD Unavailable [phone] Deepak Mar DO Unavailable [phone] MONTY FONTENOT Attending Unavailable ADILENE, OMA [facility] Unavailria e MONTY FONTENOT Attending Unavailable ADILENE, OMA [facility] Unavailabl MONTY Worley Referring Unavailable DAILENE [facility] Unavailabl e MONTY FONTENOT Referring Unavailable ADILENE, OMA CARTHAGE Primary [facility] Unavailabl e Allergies Allergy Classification Reported Allergen(s) Allergy Type Date of Onset Reaction(s) Facility (20 sources) apis mellifera venom; Translations: [BEE STINGS] allergy to substance 1 Anaphylaxis, Unknown [facility] Work Phone: (3 sources) Bees; Translations: [BEES] Propensity to adverse reactions 7 [facility] Work Phone: (5 sources) Bee/Wasp/Ant venom; Translations: [BEE STING KIT] Allergy to substance 4 Anaphylaxis [facility] Medications Current Medications Medication Drug Class(es) [...] disease (18 sources) Atherosclerotic heart disease of viejas coronary artery without angina pectoris; Translations: [Coronary [...] neck except eye(s)] 05-04-2022 Episodic Thyroid disorders (7 sources) Goiter; Translations: [Goiter, unspecified] Onset: 4 [...] Onset: 05-29-2022 Episodic Other aftercare (1 source) jail (current) use of aspirin; Translations: [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 aspirin] Onset: 06-10-2022 Episodic Other aftercare (1 source) 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 oral hypoglycemic drugs; Translations: [jail (current) use of oral hypoglycemic drugs] Onset: 06-10-2022 Episodic Other aftercare (1 source) jail (current) use of antithrombotics/antip latelets; Translations: [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 antithrombotics/antip latelets] Onset: 06-10-2022 [...] blood lipids] Onset: 04-09-2016 03-20-2014 Episodic Unclassified (3 sources) Onset: 09-21-2023 09-21-2023 Results Test Name Value Interpretation Reference Range Facil ity Vital Signs Date Time Vital Sign Value Performing Clinician Bailey sosa 09-21-2023 14:57-0500 Body height 172.7 cm Monty Fontenot MD Work Phone: [facility] 09-21-2023 14:57-0500 Body mass index (BMI) [Ratio] 41.36 kg/m2 Monty Fontenot MD Work Phone: [facility] 09-21-2023 14:57-0500 Body weight 123.38 kg Monty Fontenot MD Work Phone: [facility] 05-25-2023 16:06-0400 Body height 172.72 cm Oma Head Work Phone: ZX-Wcdptlzytpclxi-Bk [place] Work Phone: 05-25-2023 16:06-0400 Body mass index (BMI) [Ratio] 40.52 kg/m2 Oma Head Work Phone: RQ-Qpnhfdhfngsaqa-Sv [place] Work Phone: 05-25-2023 16:06-0400 Body surface area Derived from formula 2.31 m2 Oma Head Work Phone: EK-Hykcgloekgircs-Ap [place] Work Phone: 05-25-2023 16:06-0400 Body weight 120.88 kg Oma Head Work Phone: QJ-Pryturkmhxavnj-Js [place] Work Phone: 05-25-2023 16:06-0400 0 1 Oma Head Work Phone: NG-Bghemdacoxgbzc-Vp [place] Work Phone: Encounters Encounter Date Encounter Type Care Provider Facility Start: 10-26-2023 End: 10-27-2023 ambulatory [facility] Ambulatory Start: 10-26-2023 End: 10-26-2023 Subsequent hospital visit by physician Jose [id number] Ct [address] [facility] Procedures Date Procedure Procedure Detail Performing Clinician Start: 10-26-2023 CT CHEST W IV CONTRAST MONTY FONTENOT Start: 10-26-2023 CT SOFT TISSUE NECK W IV CONTRAST MONTY FONTENOT Start: 10-26-2023 Ct thorax w/contrast material Monty Fontenot MD Work Phone: Start: 10-26-2023 Ct soft tissue neck w/contrast material Monty Fontenot MD Work Phone: Start: 10-12-2017 End: 10-12-2017 *Hepatic Function Panel Silviano Oconnell Start: 10-12-2017 End: 10-12-2017 Lipid panel [AGGREGATE] Silviano Oconnell Start: 04-20-2017 End: 04-23-2017 *Hepatic Function Panel Silviano Oconnell Start: 04-20-2017 End: 04-20-2017 Follow Up Appt 6 months Silviano Oconnell Start: 04-20-2017 End: 04-20-2017 R Eliseo Oconnor MD Start: 04-20-2017 End: 04-23-2017 Lipid panel [AGGREGATE] Silviano Oconnell Start: 10-13-2016 End: 10-13-2016 Follow Up Appt 6 months Silviano Oconnell Start: 10-13-2016 End: 10-13-2016 MMM Eliseo Oconnor MD Start: 04-09-2016 End: 04-10-2016 COOK DINNER Caryl Presley PA-C Work Phone: Start: 04-09-2016 End: 04-10-2016 Follow Up Appt 6 months Caryl hernandez PA-C Work Phone: Start: 04-09-2016 End: 04-10-2016 Follow Up Appt Other Caryl gibson PA-C Work Phone: Start: 04-09-2016 End: 04-17-2016 [facility] Work Phone: Start: 04-09-2016 End: 04-10-2016 Referral to general surgeon Eliseo Mcmillan i, MD Start: 10-09-2015 End: 10-09-2015 Follow Up Appt 6 months Silviano Oconnell Start: 10-09-2015 End: 10-09-2015 MMSilviano Oconnor MD Start: 04-02-2015 End: 04-03-2015 Documentation of current medications Eliseo Oconnor MD Start: 04-02-2015 End: 10-09-2015 Follow Up Appt 6 months Silviano Oconnell Start: 04-02-2015 End: 10-09-2015 WAYNE Oconnor MD Start: 09-24-2014 End: 09-24-2014 MICHAELA Presley PA-C Work Phone: Start: 09-24-2014 End: 09-24-2014 Follow Up Appt 6 months Caryl hernandez PA-C Work Phone: Start: 03-20-2014 End: 03-20-2014 Follow Up Appt 6 months Silviano Oconnell Start: 03-20-2014 End: 03-20-2014 WAYNE Oconnor MD Start: 09-12-2013 End: 09-12-2013 COOK DINNER Caryl Presley PA-C Work Phone: Start: 09-12-2013 End: 09-12-2013 Follow Up Appt 6 months Caryl hernandez PA-C Work Phone: Start: 09-12-2013 End: 09-18-2014 Nuclear stress test -exercise Caryl Presley PA-C Work Phone: Start: 03-09-2013 End: 08-23-2013 Echocardiography Eliseo Oconnor MD Start: 03-09-2013 End: 03-09-2013 Follow Up Appt 6 months Silviano Oconnell Start: 03-09-2013 End: 03-09-2013 MM Eliseo Oconnor MD Start: 08-10-2012 End: 08-10-2012 Follow Up Appt 6 months Silviano Oconnell Start: 11-20-2011 End: 11-20-2011 Follow Up Appt 6 months Silviano Oconnell Plan of Treatment Date Care Activity Detail Author Start: 08-07-2026 DTaP/Tdap/Td Vaccine s (2 - Td or Tdap) DTaP/Tdap/Td Vaccines (2 - Td or Tdap) [facility] Start: 06-03-2025 Diabetes mellitus screening Diabetes Screening [facility] Start: 02-22-2024 End: 02-22-2024 Patient encounter procedure 02/22/2024 1:15 PM EDT Office Visit [facility] [address] [place] [address] [place] [address] [place] [address] [facility] Start: 10-07-2023 COVID-19 Vaccine (4 - Moderna series) COVID-19 Vaccine (4 - Moderna series) [facility] Start: 09-21-2023 FUV, Provider: Monty Fontenot, Status: Pen, Time: 2:45 PM FUV, Provider: Monty Fontenot, Status: Pen, Time: 2:45 PM SV-Xcusabdvwerukp-Vquxp ake Work Phone: Start: 09-21-2023 End: 09-21-2024 Creatinine [Mass/volume] in Serum or Plasma Creatinine, Serum Lab Routine Malignant neoplasm of parotid gland (CMS/HCC) Expected: 09/21/2023 (Approximate), Expires: 09/21/2024 [facility] Work Phone: Immunizations Immunization Date Immunization Notes Care Provider Myke purvis 06-09-2022 influenza virus vacc ine, unspecified formulation Monty Fontenot MD Work Phone: [facility] Work Phone: 09-24-2021 Moderna COVID-19 Vac cine 100 MCG/0.5ML Intramuscular Suspension Oma Head Work Phone: -[facility] Work Phone: 12-12-2020 Moderna COVID-19 Vac cine 100 MCG/0.5ML Intramuscular Suspension Oma Head Work Phone: -Pulmonary [facility] [facility] Work Phone: 11-14-2020 Moderna COVID-19 Vac cine 100 MCG/0.5ML Intramuscular Suspension Oma Head Work Phone: -Pulmonary [facility] [facility] Work Phone: 05-23-2019 pneumococcal polysaccharide vaccine, 23 valent Oma Head Work Phone: -Pulmonary [facility] [facility] Work Phone: 04-23-2017 pneumococcal conjuga te vaccine, 13 valent Oma Head Work Phone: -Pulmonary [facility] [facility] Work Phone: 08-07-2016 tetanus toxoid, redu sergey diphtheria toxoid, and acellular pertussis vaccine, adsorbed Oma Head Work Phone: -Pulmonary [facility] [facility] Work Phone: Payers Date Payer Category Payer Medicare [employer] MEDICARE A ETNA MACIAS MEDICARE [id number] 2023-Present [id number] [place] [address] [id number] 2023 Medicare [id number] 2021 Unknown 2021 Unknown [id number] 1954 Unknown [id number] [id number] 1954 Unknown [id number] [id number] 1954 Unknown [id number] 2.16.840.1.944987.3.579.2.356 1954 Unknown [id number] 2.16.840.1.554468.3.579.2. 1954 Unknown [id number] 2.840.1.467054.3.579.2. 1954 Unknown [id number] 2.16.840.1.863932.3.579.2.356 1954 Unknown [id number] 2.16.840.1.333631.3.579.2.356 1954 Unknown [id number] 2.840.1.700012.3.579.2.356 1954 Unknown [id number] 2.840.1.683433.3.579.2.356 1954 Unknown [id number] 2.16.840.1.996876.3.579.2.356 1954 Unknown [id number] 2.16.840.1.546172.3.579.2.356 1954 Unknown [id number] 2.16.840.1.005562.3.579.2.1244 1954 Unknown [id number] 2.16.840.1.310516.3.579.2.1244 1954 Unknown [id number] 2.16.840.1.028502.3.579.2.1245 1954 Unknown [id number] [id number] Unknown [id number] Social History Date Type Detail Facility Start: 09-21-2023 End: 10-26-2023 Non-smoker Non-smoker PF-Vvldftbttcpqsx-[facility] pravin Work Phone: Tobacco smoking consumption unknown [facility] Start: 07-22-2022 End: 09-21-2023 Tobacco smoking status NHIS Never smoked tobacco [facility] Start: 03-29-2007 End: 07-22-2022 Alcohol intake Current non-drinker of alcohol (finding) [facility] Start: 1955 Sex Assigned At Not on file [facility] Start: 07-22-2022 End: 09-21-2023 Tobacco use and exposure Smokeless tobacco non-user [facility] Start: 07-12-2022 End: 10-26-2023 Exposure to SARS-CoV-2 (event) Not sure [facility] Start: 09-21-2023 End: 10-26-2023 Tobacco use panel [facility] Work Phone: Medical Equipment Procedure Code Equipment Code Equipment Origin al Text Equipment Identifier Dates Eyelid Weight, 1.4gram, Papillion, Thin Profile Case [id number] Start: 06-10-2022 Functional Status Date Assessment Result Facility Functional observable [facility] Mental Status Date Assessment Result Facility 05-04-2022 Cognitive functi ons [id number] [facility] Clinical Notes 01-08-2022 to 09-21-2023 [...] significant facial weakness. documented in this encounter [facility] Work Phone: 08-31-2022 History of Present [...] facial interventions at this timeRTC 6 monthsIH 10.14.22s/p left eyelid weight, and tarsal strip procedure, [...] third exam: absent movement on the left [facility] Work Phone: documented in this encounter [facility]11-09-2022 History and physical note* Haris Love MD - 07/22/2022 10:28 AM EST Hematology and Medical Oncology PATIENT NAME: Jose Francisco Mullins. CLINIC NO: [id number]. ATTENDING PHYSICIAN: Haris Love MD. DATE OF [...] saw Dr. Fontenot at [facility]. 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 SOCIAL HISTORY: Social History Tobacco Use [...] Lymph 1.00 - 4.00 k/uL 0.50 (L) Scurry% % 9.4 Abs Scurry <0.87 k/uL 0.65 Eosin% % 4.0 Abs [...] -Thrush Plan: -Continue radiation therapy with Dr. Mar -Silvadene ointment for radiation dermatitis -Start nystatin swish and swallow 500,000 units 4 times daily throughout radiation treatment and asneeded after completion I spent 45 minutes in the visit, with more than 50% of the total rjiv-yi-floj time of the visit in counseling / coordination of care. Haris Love MD. ELECTRONICALLY SIGNED Cc: Dr. Florin Mar [facility] Miscellaneous Notes* Telephone Encounter - VINAYAK Belle - 07/15/2022 10:05 AM EDT Spoke with patient and scheduled for 07/20. Patient wanted to wait one week to make sure his can take off work to come with him. He didn't want a sooner appointment. * Telephone Encounter - Sarah Graves LPN - 07/14/2022 4:[address] Love reviewed, returned to [facility] desk. Sarah Graves LPN * Telephone Encounter - VINAYAK Belle - 07/14/2022 3:50 PM EDT New patient referral received and given to dr love for review. DX ANEMIA (D64.9) INTOLERANT TO ORAL IRON, RECHECK BLOOD WORK. MAY NEED TO CONSIDER IV IRON. REF PROV [facility]AC [facility] History of Present illness Narrative* 06.26.22 * s/p left eyelid weight, and [...] ectropion present * Corneal exam: healthy * Joes phenomenon: partial * Middle third exam: * NL fold: blunted on the left * Oral commissure: asymmetry, droop on the left * Lower lip: pulled to the right * Lower third exam: absent movement on the left AO-Vicladbemnsdlk-Qbkrzscp Work Phone: [phone]) 657-974809-28-2022 NotePost Operative Note: PreOp Diagnosis: facial paralysis Post-Procedure Diagnosis: facial paralysis Procedure: 1. Left upper eyelid ouzinkie weight placement 2. Left ectropion repair, tarsal strip 3. Left lower lid Tarsys placement, spacer graft Surgeon: Lamar Goddard MD Resident/Fellow/Other Model And Pattern Supervisor: Pita Pino MD Anesthesia: general LMA Estimated Blood Loss (mL): 5 cc Specimen: no Findings: see operative report Implants: ouzinkie weight in left upper lid, tarsys implant [...] the left upper eyelid for placement of ouzinkie chain weight. Skin and orbicularis flap was undermined and the tarsal plate was identified. A size 1.4 G ouzinkie chain was then secured inside a soft [...] Completion Last Updated: 11-Jun-2022 20:49 by Lamar Goddard)[facility]09-16-2022 Chief complaint Narrative - Reported* [...] telehealth visit. * New Patient evaluation. -[facility] [facility] Work Phone: 1(334) 717-729706-01-2022 History of Present illness Arianna saez was [...] adenopathies in his chest and upper abdomen. MQ-Sstkazzwxhsqjs-Jqxzouqw Work Phone: 1(879) 167-495506-01-2022 History of Present illness Arianna saez was [...] multiplesmall adenopathies in his chest and upper abdomen.[facility] Work Phone: [phone]) 603-294806-01-2022 History of Present illness Arianna saez was [...] extends substernally. 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 Florin Mar ([place]) * HPI: Patient presents to pulmonary clinic [...] with an oncologist; Dr. 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 2. Multiple tbdl-xu-ntpkqpjzfo hypermetabolic mediastinal and upper abdominal lymph nodes [...] drugs, or prescription drugs for non-medical reasons thismorning. -[facility] Work Phone: Hospital Discharge instructions* Activity:activity [...] Referral: post op checkScheduled Date/Time: 19-May-2022 13:00Location: [facility] 1st Floor Desk [address],[place], [place] [address]Grxmn Number: [phone] with questionsComments: Please arrive 10-15 minutes ea rly, bring photo ID, insurance information, and current list of medications. If unable to keep thisappointment, please call to cancel at least 24 hours prior to appointment. * Follow Up Appointment 2:Physician/Dept/Service: Dr. Yang for Referral: Gold Weight consultScheduled Date/Time: 25-May-2022 13:45Location: [facility] [address] [place], [place] [address]Eavrj Number: [phone] * Follow Up Appointment 3:Physician/Dept/Service: Primary care providerReason for Referral: blood sugar/diabetes managementComments: Your blood sugars were >200 in the hospital and your A1c is elevated. Please work with your primary care provider to improve your diabetes control * Incision Care:Facial/Neck Incision Care: Cleanse all facial/neck incisions twice daily with baby shampoo or mild soap and water. Apply petroleum jelly/vaseline to incision line twice daily until incision has healed. [facility] Family History No Family History [...] a left parapharyngeal massPOV surgery 06/10POV surgery 06/10FUV- left facial paralysisFUV left facial paralysis, s/p [...] chest [place] [address] [place] [id number] Referral ID Status Reason Start Date Expiration Date Visits Requested Visits Authorized [id number] Pending Review Perform Procedure 09/21/2023 09/20/2024 1 1 Specialty Diagnoses / Procedures Referred By Contac t Referred To Contact Radiology Diagnoses Malignant neoplasm of parotid gland (CMS/HCC) Procedures CT soft tissue [place] [address] [place] [id number] Referral ID Status Reason Start Date Expiration Date Visits Requested Visits Authorized [id number] Pending Review Perform Procedure 09/21/2023 09/20/2024 1 1 Referral ID Status Reason Start Date Expiration Date Visits Requested Visits Authorized [id number] Authorized Perform Procedure 09/21/2023 09/20/2024 1 1 Specialty Diagnoses / Procedures Referred By Contac t Referred To Contact Radiology Diagnoses Malignant neoplasm of parotid gland (CMS/HCC) Procedures CT chest w IV contrast CT chest wo IV contrast Monty Fontenot MD [address] [place] [address] Referral ID Status Reason Start Date Expiration Date Visits Requested Visits Authorized [id number] Authorized Perform Procedure 09/21/2023 09/20/2024 1 1 Additional [...] or prosecute any alcohol or drug abuse patient.[facility] the event this information is protected by the Federal Confidentiality of Alcohol and Drug Abuse Patient Records regulations: The Federal rules restrict any use of the information to criminally investigate or prosecute any alcohol or drug abuse patient.[facility] Reason for Visit (unrecogniz ed section and content) Specialty Diagnoses / Procedures Referred By Contac t Referred To Contact Radiology Diagnoses Malignant neoplasm of parotid gland (CMS/HCC) Procedures CT soft tissue [place] [address] [place] [address] Referral ID Status Reason Start Date Expiration Date Visits Requested Visits Authorized [id number] Authorized Perform Procedure 09/21/2023 09/20/2024 1 1 Specialty Diagnoses / Procedures Referred By Contac t Referred To Contact Radiology Diagnoses Malignant neoplasm of parotid gland (CMS/HCC) Procedures CT chest w IV contrast CT chest wo IV contrast Monty Fontenot MD [address] [place] [address] Referral ID Status Reason Start Date Expiration Date Visits Requested Visits Authorized [id number] Authorized Perform Procedure 09/21/2023 09/20/2024 1 1 Care Teams (unrecognized sec tion and content) Meter Readers Supervisor Relationship Specialty Start Date End Date Oma Head [address] [place] [address] PCP - General Family Medicine 07/13/22 Meter Readers Supervisor Relationship Specialty Start Date End Date Oma Head MD [address] [place] [address] PCP - General 03/10/22 Gabe Sam MD [address] [facility] [place], [place] [address] Referring Physician Otolaryngology 08/31/23 Deepak Mar DO [address] [facility] [address] [place] [address] Referring Physician Radiation Oncology 08/31/23 (unrecognized sect ion and content) No Status Records FoundNo Status Records FoundNo Status Records FoundNo Status Records FoundNo Status Records Found INFORMATION SOURCE (unrecogn ized section and content) DATE CREATED AUTHOR AUTHOR'S ORGANIZ ATION 07/24/2022 [facility] DATE CREATED AUTHOR AUTHOR'S ORGANIZ ATION 05/27/2023 [facility] DATE CREATED AUTHOR AUTHOR'S ORGANIZ ATION 10/28/2023 [facility] DATE CREATED AUTHOR AUTHOR'S ORGANIZ ATION 11/01/2023 [facility] FOR RECORDS PERTAINING TO PATIENTS WHO ARE [...] BE BASED ON THE PRIMARY CLINICAL RECORDS. [facility] [email or web address] [facility]. provides no warranty or guarantee of the accuracy or completeness of information in this document.
[2023-11-02] MEDS: Lactated Ringers 1,000 ML 15 ML IV (07:48)
[2023-11-02 07:49] VITALS: BP 89/55; PULSE 74; RESP 18; TEMP 36.1; O2SAT 98; BMI 41.1
[2023-11-02 08:17] LABS: Bedside Glucose 126 mg/dL (74-106)
[2023-11-02 09:32] VITALS: BP 89/55; BP 92/54; PULSE 73; RESP 16; TEMP 37; O2SAT 93
[2023-11-02 09:35] VITALS: BP 82/51; BP 89/55; PULSE 69; RESP 16; O2SAT 97
--- NOTE | 2023-11-02 09:37 | RAD_ITS ---
STUDY: BARIUM ENEMA. REASON FOR EXAM: Male, 68 years old. Unable to complete C scope FLUOROSCOPY TIME (if supplied): ( 2 minutes ) minutes/seconds. 16 images were submitted. TECHNIQUE: A senior clinical consultant film was obtained. Following this, contrast was introduced retrograde through the rectum. The entire colon was opacified. COMPARISON: None. FINDINGS: There is no evidence of a retrograde obstruction to the floor of contrast. No intraluminal filling defect is seen. There is evidence of sigmoid diverticulosis with no radiographic evidence of diverticulitis. There is evidence of a cecal bascule. There is a 2.7 cm x 1.6 cm well-defined rectangular filling defect in the cecum. This may be an ingested tablet. RAD/Barium Enema w/Air Contrast IMPRESSION: Sigmoid diverticulosis. Cecal bascule. 2.7 cm x 1.6 cm rectangular filling defect in the region of the cecum. This may represent an ingested tablet. Electronically Signed: Abdirizak Markham MD at 12:30 EST ,
[2023-11-02 09:40] VITALS: BP 89/55; BP 91/53; PULSE 71; RESP 16; O2SAT 94
--- NOTE | 2023-11-02 09:42 | OP.COLON_ITS ---
Patient Name: Zeke Mullins Procedure Date: 11/02/2023 8:57 AM Date of : 1955 Age: 68 Procedure: Colonoscopy Indications: Screening for colorectal malignant neoplasm Providers: Don Solano MD Medicines: Monitored Anesthesia Care Patient Profile: This is a 68 year old male. Refer to note in patient chart for documentation of history and physical. Last Colonoscopy: none. The patient's first colonoscopy is today. Complications: No immediate complications. Estimated blood loss: Minimal. Procedure: Pre-Anesthesia Assessment: - Prior to the procedure, a History and Physical was performed, and patient medications and allergies were reviewed. The patient's tolerance of previous anesthesia was also reviewed. The risks and benefits of the procedure and the sedation options and risks were discussed with the patient. All questions were answered, and informed consent was obtained. Prior Anticoagulants: The patient has taken no anticoagulant or antiplatelet agents. After reviewing the risks and benefits, the patient was deemed in satisfactory condition to undergo the procedure. After I obtained informed consent, the scope was passed under direct vision. Throughout the procedure, the patient's blood pressure, pulse, and oxygen saturations were monitored continuously. The Colonoscope was introduced through the anus with the intention of advancing to the cecum. The scope was advanced to the hepatic flexure before the procedure was aborted. Medications were not given. The patient tolerated the procedure well. The quality of the bowel preparation was good. The colonoscopy was aborted due to the unusual difficulty of the procedure. Changing the patient's position, using manual pressure, withdrawing and reinserting the scope and straightening and shortening the scope to obtain bowel loop reduction did not allow for the successful completion of the procedure. The colonoscopy was unusually difficult due to a redundant colon. Scope In: 9:04:53 AM Scope Out: 9:28:05 AM Total Procedure Duration Time 0 hours 23 minutes 12 seconds Findings: The entire examined colon appeared normal. Impression: - The procedure was aborted due to the unusual difficulty of the procedure. - The entire examined colon is normal. - No specimens collected. Recommendation: - Discharge patient to home. - Resume previous diet. - Continue present medications. - Repeat colonoscopy. - Perform an air contrast barium enema today. Procedure Code(s): --- Professional --- 12385, 53, Colonoscopy, flexible; diagnostic, including collection of specimen(s) by brushing or washing, when performed (separate procedure) Diagnosis Code(s): --- Professional --- Z12.11, Encounter for screening for malignant neoplasm of colon CPT copyright 2021 [employer]. All rights reserved. The codes documented in this report are preliminary and upon pipe joints supervisor review may be revised to meet current compliance requirements. Don Solano MD 11/02/2023 9:42:01 AM This report has been signed electronically. Number of Addenda: 0 Note Initiated On: 11/02/2023 8:57 AM
[2023-11-02 09:47] VITALS: BP 89/55; BP 92/60; PULSE 71; RESP 16; TEMP 36.3; O2SAT 96
[2023-11-02 10:09] VITALS: BP 89/55
== END 2023-11-02 10:19 | disposition home or self-care (01) ==
LOC: EN 07:20 → AC 07:20
PROVIDERS: PCP Family Medicine; Referring Provider Family Medicine; Visit Provider Surgery
PROC: 0DJD8ZZ Inspection of Lower Intestinal Tract, Via Natural or Artificial Opening Endoscopic (ICD-10-PCS; CPT 45378; principal; 2023-11-02 08:25)
DX: Z12.11 Encounter for screening for malignant neoplasm of colon (principal); E11.9 Type 2 diabetes mellitus without complications; Z53.8 Procedure and treatment not carried out for other reasons; Z79.82 Long term (current) use of aspirin; I25.10 Atherosclerotic heart disease of native coronary artery without angina pectoris; I10 Essential (primary) hypertension; E78.00 Pure hypercholesterolemia, unspecified; I87.2 Venous insufficiency (chronic) (peripheral)
CPT/HCPCS: G0121; 74280; 82962; J7120; J2405

== ENCOUNTER → 2024-01-13 | Outpatient (CLI) | payer MEDICARE, SELFPAY ==
[2024-01-13 10:30] LABS: Absolute Lymphocyte Count 0.87 X10^3/uL (0.83-4.51); Absolute Neutrophil Count 4.5 X10^3/uL (2.0-7.7); Basophil# 0.03 X10^3/uL; Basophil% 0.5 % (0-1); Eosinophils% 6.4 % (0-5); Hematocrit 39.6 % (40-54); Lymphocyte # 0.87 X10^3/ul (0.83-4.51); Mean Corp Hgb Conc 32.8 g/dL (32-36); Mean Corpuscular Hgb 29.8 pg (27.0-32.0); Mean Corpuscular Volume 90.8 fL (80-94); Mean Platelet Vol. 11.5 fl (6.2-12.0); Monocyte# 0.44 X10^3/uL; Monocyte% 7.1 % (0-10); NRBC Flagged by Analyzer 0 % (0-5); Neutrophil # 4.46 X10^3/uL (2.7-7.7); Neutrophil % 71.5 % (47-70); Platelet Count 138 K/mm3 (150-450); RBC Distribution Width CV 15.8 % (11.6-14.6); RBC Distribution Width SD 51.8 fl (35.1-43.9); Red Blood Count 4.36 M/mm3 (4.6-6.2); White Blood Count 6.2 K/mm3 (4.4-11.0)
[2024-01-13 10:36] LABS: AST(SGOT) 14 U/L (15-37); Alanine Aminotransfer ALT/SGPT 27 U/L (16-61); Albumin, Serum 3.3 g/dL (3.2-5.0); Alkaline Phosphatase 123 U/L (45-117); Anion Gap 7 (5-15); BUN 20 mg/dL (7-18); BUN/Creat Ratio 14.2 RATIO (10-20); Calcium,Total 8.7 mg/dL (8.5-10.1); Chloride 110 mmol/L (98-107); Cholesterol 122 mg/dL (200); Creatinine, Serum 1.41 mg/dL (0.70-1.30); EST Glomerular Filtration Rate 53 mL/min (>60); Est Glom Filt Rate - Afr Amer 64 mL/min (>60); Globulin 3.3 g/dL (2.2-4.2); Glucose 163 mg/dL (74-106); High Density Lipoprotein 33 mg/dL; Potassium 4.2 mmol/L (3.5-5.1); Protein, Total 6.6 g/dL (6.4-8.2); Sodium Level 138 mmol/L (136-145); Triglycerides 115 mg/dL; Very Low Density Lipoprotein 23 mg/dL (5-40)
[2024-01-13 10:46] LABS: Vitamin D,25 Hydroxy 41.8 ng/mL
[2024-01-13 10:48] LABS: Protein, Urine (Random) 12.1 mg/dL (<11.9); Protein:Creat Ratio 144 mg/g CRE (0-200)
[2024-01-13 10:51] LABS: Hemoglobin A1c 7.2 % (3.8-5.6)
== END | disposition home or self-care (01) ==
LOC: MFPLAB 08:31
PROVIDERS: PCP Family Medicine; Visit Provider Family Medicine
DX: E11.22 Type 2 diabetes mellitus with diabetic chronic kidney disease (principal); N18.30 Chronic kidney disease, stage 3 unspecified
CPT/HCPCS: 36415; 80053; 80061; 82306; 82570; 83036; 84156; 85025

== ENCOUNTER → 2024-04-20 | Outpatient (CLI) | payer MEDICARE, SELFPAY ==
[2024-04-20 08:34] LABS: Bacteria 0 SEEN /hpf (None Seen); Mucous, Urine 0 SEEN /hpf (<or=2+); Red Blood Cells-Urine 0 SEEN /hpf (0-5); Squamous Epithelial Cells - UA 0 SEEN /hpf (0-5); White Blood Cells 0 SEEN /hpf (0-5)
[2024-04-20 10:10] LABS: Absolute Lymphocyte Count 1.06 X10^3/uL (0.83-4.51); Absolute Neutrophil Count 4.7 X10^3/uL (2.0-7.7); Basophil# 0.06 X10^3/uL; Basophil% 0.9 % (0-1); Eosinophil# 0.47 X10^3/uL; Eosinophils% 6.9 % (0-5); Hematocrit 41.4 % (40-54); Hemoglobin 13.3 g/dL (13.0-16.5); Lymphocyte # 1.06 X10^3/ul (0.83-4.51); Lymphocyte % 15.6 % (19-41); Mean Corp Hgb Conc 32.1 g/dL (32-36); Mean Corpuscular Volume 90.2 fL (80-94); Mean Platelet Vol. 11.3 fl (6.2-12.0); Monocyte% 7.3 % (0-10); NRBC Flagged by Analyzer 0 % (0-5); Neutrophil # 4.71 X10^3/uL (2.7-7.7); Neutrophil % 69.2 % (47-70); Platelet Count 151 K/mm3 (150-450); RBC Distribution Width SD 48.7 fl (35.1-43.9); Red Blood Count 4.59 M/mm3 (4.6-6.2); White Blood Count 6.8 K/mm3 (4.4-11.0)
[2024-04-20 10:20] LABS: Color, Urine Yellow (Yellow); Glucose, Dipstick 1000 mg/dl (Normal); Ketone-Dipstick Negative (Negative); Leukocyte Esterase-Dipstick Negative /ul (Negative); Nitrite-Dipstick Negative (Negative); Occult Blood-Urine Negative /ul (Negative); Protein-Dipstick Negative (Negative); Specific Gravity, Urine 1.015 (1.002-1.030); Urine Bilirubin Dipstick Negative (Negative); Urine Clarity Clear (Clear); Urine Urobilinogen Normal (Normal)
[2024-04-20 10:22] LABS: Vitamin D,25 Hydroxy 50.3 ng/mL
[2024-04-20 10:28] LABS: PTHIN 131.9 pg/mL (18.4-80.1)
[2024-04-20 10:30] LABS: Hemoglobin A1c 7.5 % (3.8-5.6)
[2024-04-20 10:42] LABS: Microalbumin,Random Urine < 5.0 mg/L (NO RANGE EST.); Protein, Urine (Random) 12.8 mg/dL (<11.9); Protein:Creat Ratio 171 mg/g CRE (0-200)
[2024-04-20 10:52] LABS: ALB/GLOB Ratio 0.9 RATIO (0.9-2.4); AST(SGOT) 17 U/L (15-37); Alanine Aminotransfer ALT/SGPT 27 U/L (16-61); Albumin, Serum 3.3 g/dL (3.2-5.0); Alkaline Phosphatase 143 U/L (45-117); Anion Gap 7 (5-15); BUN 17 mg/dL (7-18); BUN/Creat Ratio 12.3 RATIO (10-20); Calcium,Total 8.5 mg/dL (8.5-10.1); Chloride 111 mmol/L (98-107); Cholesterol 112 mg/dL (200); Creatinine, Serum 1.38 mg/dL (0.70-1.30); EST Glomerular Filtration Rate 54 mL/min (>60); Est Glom Filt Rate - Afr Amer 66 mL/min (>60); Globulin 3.5 g/dL (2.2-4.2); Glucose 154 mg/dL (74-106); High Density Lipoprotein 34 mg/dL; Potassium 4.4 mmol/L (3.5-5.1); Protein, Total 6.8 g/dL (6.4-8.2); Sodium Level 139 mmol/L (136-145); Thyroid Stim Hormone (TSH) 0.92 uIU/mL (0.358-3.74); Triglycerides 110 mg/dL; Very Low Density Lipoprotein 22 mg/dL (5-40)
== END | disposition home or self-care (01) ==
LOC: MFPLAB 08:31
PROVIDERS: PCP Family Medicine; Visit Provider Family Medicine
DX: E11.22 Type 2 diabetes mellitus with diabetic chronic kidney disease (principal); N18.30 Chronic kidney disease, stage 3 unspecified; E55.9 Vitamin D deficiency, unspecified
CPT/HCPCS: 36415; 80053; 80061; 81001; 82043; 82306; 82570; 83036; 83970; 84100; 84156; 84443; 85025

== ENCOUNTER → 2024-05-03 | Outpatient (CLI) | payer MEDICARE, SELFPAY ==
[2024-05-05 13:08] LABS: PSA, Free 1.08 ng/mL; PSA, Free % 36.1 % (.)
== END | disposition home or self-care (01) ==
PROVIDERS: PCP Family Medicine; Visit Provider Family Medicine
DX: R97.20 Elevated prostate specific antigen [PSA] (principal)
CPT/HCPCS: 36415; 84153; 84154

== ENCOUNTER → 2024-08-24 | Outpatient (CLI) | payer MEDICARE, SELFPAY ==
[2024-08-24 10:22] LABS: Absolute Lymphocyte Count 0.82 X10^3/uL (0.83-4.51); Absolute Neutrophil Count 5.1 X10^3/uL (2.0-7.7); Basophil# 0.07 X10^3/uL; Eosinophil# 0.42 X10^3/uL; Hematocrit 40.8 % (40-54); Hemoglobin 13.3 g/dL (13.0-16.5); Lymphocyte # 0.82 X10^3/ul (0.83-4.51); Lymphocyte % 11.8 % (19-41); Mean Corp Hgb Conc 32.6 g/dL (32-36); Mean Corpuscular Hgb 29.1 pg (27.0-32.0); Mean Corpuscular Volume 89.3 fL (80-94); Monocyte# 0.52 X10^3/uL; Monocyte% 7.5 % (0-10); NRBC Flagged by Analyzer 0 % (0-5); Neutrophil # 5.11 X10^3/uL (2.7-7.7); Neutrophil % 73.3 % (47-70); Platelet Count 158 K/mm3 (150-450); RBC Distribution Width CV 15.7 % (11.6-14.6); RBC Distribution Width SD 50.7 fl (35.1-43.9); Red Blood Count 4.57 M/mm3 (4.6-6.2)
[2024-08-24 10:41] LABS: Microalbumin,Random Urine 5.9 mg/L (NO RANGE EST.); Microalbumin:Creatinine Ratio 9.3 mg/g CRE (<30 mg/g CRE); Protein, Urine (Random) 13.5 mg/dL (<11.9); Protein:Creat Ratio 213 mg/g CRE (0-200)
[2024-08-24 11:05] LABS: ALB/GLOB Ratio 0.9 RATIO (0.9-2.4); AST(SGOT) 15 U/L (15-37); Alanine Aminotransfer ALT/SGPT 25 U/L (16-61); Albumin, Serum 3.3 g/dL (3.2-5.0); Alkaline Phosphatase 149 U/L (45-117); Anion Gap 8 (5-15); BUN 16 mg/dL (7-18); BUN/Creat Ratio 11.9 RATIO (10-20); Chloride 107 mmol/L (98-107); Cholesterol 121 mg/dL (200); Creatinine, Serum 1.35 mg/dL (0.70-1.30); EST Glomerular Filtration Rate 56 mL/min (>60); Est Glom Filt Rate - Afr Amer 67 mL/min (>60); Globulin 3.7 g/dL (2.2-4.2); Glucose 190 mg/dL (74-106); High Density Lipoprotein 35 mg/dL; Potassium 4.2 mmol/L (3.5-5.1); Sodium Level 136 mmol/L (136-145); Triglycerides 104 mg/dL; Very Low Density Lipoprotein 21 mg/dL (5-40)
[2024-08-24 11:11] LABS: PTHIN 164.6 pg/mL (18.4-80.1)
[2024-08-24 11:12] LABS: Vitamin D,25 Hydroxy 33.4 ng/mL
[2024-08-24 11:17] LABS: Hemoglobin A1c 7.9 % (3.8-5.6)
[2024-08-28 09:22] LABS: PSA, Free 1.22 ng/mL; PSA, Free % 33.6 % (.)
== END | disposition home or self-care (01) ==
LOC: MFPLAB 08:19
PROVIDERS: PCP Family Medicine; Referring Provider Family Medicine; Visit Provider Family Medicine
DX: E11.22 Type 2 diabetes mellitus with diabetic chronic kidney disease (principal); N18.30 Chronic kidney disease, stage 3 unspecified; R97.20 Elevated prostate specific antigen [PSA]; E55.9 Vitamin D deficiency, unspecified
CPT/HCPCS: 36415; 80053; 80061; 82043; 82306; 82570; 83036; 83970; 84153; 84154; 84156; 85025

== ENCOUNTER → 2024-09-18 | Outpatient (CLI) | payer MEDICARE, SELFPAY ==
[2024-09-18 13:12] LABS: Creatinine, Serum 1.34 mg/dL (0.70-1.30); EST Glomerular Filtration Rate 56 mL/min (>60); Est Glom Filt Rate - Afr Amer 68 mL/min (>60)
== END | disposition home or self-care (01) ==
LOC: PAVLAB 12:34
PROVIDERS: PCP Family Medicine; Referring Provider Otolaryngology; Visit Provider Otolaryngology
DX: C07 Malignant neoplasm of parotid gland (principal)
CPT/HCPCS: 36415; 82565

== ENCOUNTER → 2024-12-07 | Outpatient (CLI) | payer MEDICARE, SELFPAY ==
[2024-12-07 09:52] LABS: Bacteria 0 SEEN /hpf (None Seen); Mucous, Urine 0 SEEN /hpf (<or=2+); Squamous Epithelial Cells - UA 0 SEEN /hpf (0-5); White Blood Cells 0 SEEN /hpf (0-5)
[2024-12-07 12:39] LABS: Absolute Lymphocyte Count 1.02 X10^3/uL (0.83-4.51); Absolute Neutrophil Count 4.4 X10^3/uL (2.0-7.7); Basophil# 0.05 X10^3/uL; Basophil% 0.8 % (0-1); Eosinophil# 0.38 X10^3/uL; Hematocrit 39.7 % (40-54); Hemoglobin 13.3 g/dL (13.0-16.5); Lymphocyte # 1.02 X10^3/ul (0.83-4.51); Lymphocyte % 16.1 % (19-41); Mean Corp Hgb Conc 33.5 g/dL (32-36); Mean Corpuscular Hgb 29.8 pg (27.0-32.0); Mean Platelet Vol. 12.1 fl (6.2-12.0); Monocyte# 0.49 X10^3/uL; Monocyte% 7.7 % (0-10); NRBC Flagged by Analyzer 0 % (0-5); Neutrophil # 4.37 X10^3/uL (2.7-7.7); Neutrophil % 69.1 % (47-70); Platelet Count 150 K/mm3 (150-450); RBC Distribution Width CV 15.3 % (11.6-14.6); RBC Distribution Width SD 49.3 fl (35.1-43.9); Red Blood Count 4.46 M/mm3 (4.6-6.2); White Blood Count 6.3 K/mm3 (4.4-11.0)
[2024-12-07 13:02] LABS: Color, Urine Yellow (Yellow); Glucose, Dipstick 1000 mg/dl (Normal); Ketone-Dipstick Negative (Negative); Leukocyte Esterase-Dipstick Negative /ul (Negative); Nitrite-Dipstick Negative (Negative); Occult Blood-Urine 10 /ul (Negative); Protein-Dipstick Negative (Negative); Specific Gravity, Urine 1.015 (1.002-1.030); Urine Bilirubin Dipstick Negative (Negative); Urine Clarity Clear (Clear); Urine Urobilinogen Normal (Normal)
[2024-12-07 13:08] LABS: PTHIN 87 pg/mL (11-61)
[2024-12-07 13:08] LABS: Red Blood Cells-Urine 0 SEEN /hpf (0-5)
[2024-12-07 13:37] LABS: Microalbumin,Random Urine < 12.0 mg/L (NO RANGE EST.); Microalbumin:Creatinine Ratio UNABLE TO CALCULATE mg/g CRE; Protein, Urine (Random) 9.1 mg/dL (0.0-12.0); Protein:Creat Ratio 114 mg/g CRE (0-200)
[2024-12-07 19:05] LABS: Hemoglobin A1c 9.2 % (<=5.6)
[2024-12-07 19:55] LABS: ALB/GLOB Ratio 1.7 RATIO (0.9-2.4); AST(SGOT) 21 U/L (<=37); Alanine Aminotransfer ALT/SGPT 25 U/L (<=46); Albumin, Serum 3.7 g/dL (3.4-4.8); Alkaline Phosphatase 125 U/L (40-129); Anion Gap 14 (5-15); BUN 16 mg/dL (4-19); BUN/Creat Ratio 12.4 RATIO (10-20); Calcium,Total 8.6 mg/dL (7.6-11.0); Carbon Dioxide 16.8 mmol/L (21.0-32.0); Chloride 106 mmol/L (98-108); Creatinine, Serum 1.27 mg/dL (0.70-1.20); EST Glomerular Filtration Rate 61 (>60); Globulin 2.3 g/dL (2.2-4.2); Glucose 208 mg/dL (70-99); Phosphorus 3.6 mg/dL (2.7-4.5); Potassium 4.4 mmol/L (3.3-5.1); Sodium Level 137 mmol/L (133-145); Total Bilirubin 0.53 mg/dL (0.00-1.30)
[2024-12-07 20:20] LABS: Cholesterol 135 mg/dL (<=200); High Density Lipoprotein 34 mg/dL; Low Density Lipoprotein Calc. 72 mg/dL; Triglycerides 148 mg/dL; Very Low Density Lipoprotein 30 mg/dL (5-40); cholesterol:hdl ratio screen 3.98
[2024-12-07 20:24] LABS: Vitamin D,25 Hydroxy 19.3 ng/mL (30-100)
== END | disposition home or self-care (01) ==
LOC: MFPLAB 08:57
PROVIDERS: PCP Family Medicine; Referring Provider Family Medicine; Visit Provider Family Medicine
DX: C07 Malignant neoplasm of parotid gland (principal); E11.8 Type 2 diabetes mellitus with unspecified complications; N18.30 Chronic kidney disease, stage 3 unspecified
CPT/HCPCS: 36415; 80053; 80061; 81001; 82043; 82306; 82570; 83036; 83970; 84100; 84156; 85025

== ENCOUNTER → 2024-12-15 | Outpatient (CLI) | payer MEDICARE, SELFPAY ==
--- NOTE | 2024-12-15 15:49 | STRESSREP ---
Stress Test Report Pharmacologic myocardial perfusion stress test. 69-year-old male with history of coronary disease and diabetes mellitus Resting EKG demonstrates sinus rhythm with a right bundle branch block with a rate of 69 bpm. Resting blood pressure is 102/74 mmHg. 0.4 mg of regadenoson was infused per usual protocol followed by rapid intravenous saline flush injection. Continuous EKG monitoring was performed. The maximum heart rate was 87 bpm which was 58 beats of max impacted heart rate the maximum workload was 1 metabolic equivalent. At rest there were no ST or T wave changes noted to suggest ischemia and at peak infusion nonspecific ST changes were noted which did not meet the criteria for ischemia. No clinical angina is noted. The final blood pressure was 98/62 mmHg. Myocardial perfusion protocol. 14.8 mCi of technetium 99m sestamibi was injected at rest. 0.4 mg of regadenoson was infused per usual protocol. At peak infusion 44.9 mCi of technetium 99m sestamibi was injected stress images were obtained stress and rest images were reconstructed and compared in the short axis vertical long and horizontal long axis. Gated images were also obtained. Perfusion SPECT analysis: Review of the stress images demonstrate normal uptake of tracer noted in all areas of the myocardium. The resting images similar demonstrated normal uptake of tracer noted in all areas of the myocardium. No areas of reversibility are noted to suggest ischemia and no previous infarct is noted. Gated SPECT analysis: The gated ejection fraction is 76%. Conclusion: Normal pharmacologic myocardial perfusion stress test. Preserved ejection fraction.
== END | disposition home or self-care (01) ==
PROVIDERS: PCP Family Medicine; Referring Provider Nurse Practitioner Family; Visit Provider Nurse Practitioner Family
DX: I25.10 Atherosclerotic heart disease of native coronary artery without angina pectoris (principal); E11.9 Type 2 diabetes mellitus without complications; Z95.5 Presence of coronary angioplasty implant and graft; I10 Essential (primary) hypertension; E78.00 Pure hypercholesterolemia, unspecified; I45.10 Unspecified right bundle-branch block
CPT/HCPCS: 78452; 93017; A9500; A4216; J2785

== ENCOUNTER 2025-01-19 22:33 | Inpatient (IN) | payer MEDICARE, SELFPAY ==
[2025-01-19 22:34] VITALS: BP 116/53; PULSE 98; RESP 20; TEMP 38.8; O2SAT 96; BMI 42.7
[2025-01-19 22:39] VITALS: BP 116/53; PULSE 95; RESP 20; TEMP 38.8; O2SAT 95
--- NOTE | 2025-01-19 22:46 | EDS_ITS ---
HPI History of Present Illness Chief Complaint: General Illness Narrative Narrative: 69-year-old male past medical history of type 2 diabetes, coronary artery disease with stent, presents with generalized weakness, lethargy and mental status change according to his . It was reported that he was having problems getting out of his chair and had to rock [id number]. He was finally able to get up and go to the restroom. He has been incontinent a few times today. However, he was able to drive himself to [place] and back. reports that she received a call from her daughter asking what was wrong with her father. states that she would go to the cupboard to get him something to eat, turn around, and he would be drowsy and sleepy. Patient denies any cough or shortness of breath, no nausea or vomiting, no other symptoms. [facility] Medical History Wears hearing aid Wears glasses Arthritis Kidney stones High cholesterol Back pain Injury of back Difficulty swallowing CPAP (continuous positive airway pressure) dependence History of echocardiogram History of stress test Cardiology follow-up encounter Pulmonary nodules/lesions, multiple Facial nerve paralysis Sleep apnea Kidney disease CAD (coronary artery disease) Anemia Cancer of parotid gland Atherosclerosis of coronary artery of [place] heart without angina pectoris Essential (primary) hypertension Spondylosis of lumbosacral region without myelopathy or radiculopathy Lumbosacral stenosis Radiculopathy of lumbosacral region Degeneration of intervertebral disc of lumbosacral region Nonspecific abnormal unspecified cardiovascular function study Right bundle branch block Diabetes mellitus Hypercholesterolemia Low back pain Obesity Hemosiderin staining Lipodermatosclerosis Venous hypertension, chronic, with ulcer and inflammation Chronic venous insufficiency Edema leg Leg swelling Leg ulcer Home Medications ?Medication ?Instructions ?Recorded ?Last Taken ?Type aspirin 81 mg chewable tablet 81 mg PO DAILY 05/05/16 01/19/25 History nitroglycerin 0.4 mg sublingual 0.4 mg sublingual Q5M PRN CHEST 10/13/17 Unknown History tablet (Nitrostat) PAIN antiarthritic combination no.2 900 1 tab PO QDAY SUPPL EMENT 10/21/17 01/19/25 History mg tablet (glucosamine-chondroitin) metoprolol succinate 50 mg 50 mg PO DAILY #90 tabs 08/3101/19/25 History tablet,extended release 24 hr metformin 500 mg tablet,extended 500 tablet PO BID 01/19/25 History release 24 hr dapagliflozin propanediol 5 mg 10 mg PO DAILY 12/07/22 01/19/25 History tablet (Farxiga) glimepiride 4 mg tablet 4 mg PO DAILY 08/23/2301/19 History lisinopril 10 mg tablet 10 mg PO DAILY BP #90 tabs 0 06/06/24 01/19/25 Rx atorvastatin 40 mg tablet 40 mg PO QHS 01/20/25 History cholecalciferol (vitamin D3) 125 5,000 unit PO DAILY 0 01/20/25 01/19/25 History mcg (5,000 unit) tablet dulaglutide 4.5 mg/0.5 mL 4.5 mg subcut QWEEK 01/20/25 01/15/25 History subcutaneous pen injector (Trulicity) Allergy/AdvReac Type Severity Reaction Status Date / Time bee venom protein (honey bee) Allergy Severe Anaphylaxis Verified 01/19/25 22:39 metformin AdvReac Severe lactic Verified 01/20/25 03:17 acidosis Family History Father CAD (coronary artery disease) <55 Mother CAD (coronary artery disease) Sister Breast cancer Hyperlipidemia Surgical History History of cardiac catheterization History of cystoscopy Hx of surgical procedure H/O hernia repair Hx of tonsillectomy History of biopsy History of coronary artery stent placement (10/14/06) Social History Smoking Status: Never smoker alcohol intake: never substance use type: does not use ROS ROS ED ROS Narrative Mildly limited secondary to patient mental status. No fevers or chills, no cough. No nausea or vomiting. No abdominal pain. Per , positive drowsiness and generalized weakness. Reported confusion as well. reports few episodes of urinary incontinence. EXAM Physical Exam Narrative Exam Narrative: Temperature 102 ?F. Vital signs noted. Nontoxic-appearing. Awake, alert, conversive. Cardiovascular examination feels a regular rate and rhythm. Lungs are clear to auscultation bilaterally. Abdomen is soft, nontender, without guarding or rebound. Neurological examination shows him to be awake, alert, and oriented although initially he stated it was 2025 then corrected himself. He still does not know the month but knew the president & [employer]o [employer]. Able to move all extremities. 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 Const Vital Signs: 01/19/25 22:34 01/19/25 22:39 01/19/25 22:40 Temperature 102 F H 102 F H Temperature Source Oral Oral Pulse Rate 98 95 Respiratory Rate 20 H 20 H Respiratory Effort Normal Non-Labored Blood Pressure 116/53 L 116/53 L Blood Pressure Mean 74 74 Pulse Ox 96 95 Oxygen Delivery Method Room Air Room Air 01/19/25 23:06 01/19/25 23:39 01/19/25 23:41 Temperature 100 F H 100 F H Temperature Source Oral Oral Pulse Rate 93 93 Respiratory Rate 24 H 24 H Respiratory Effort Blood Pressure 109/51 L 109/51 L Blood Pressure Mean 70 70 Pulse Ox 96 96 Oxygen Delivery Method Room Air Room Air Room Air 01/20/25 00:25 01/20/25 00:33 01/20/25 01:00 Temperature 99.7 F H 98.8 F Temperature Source Oral Oral Pulse Rate 93 88 100 Respiratory Rate 25 H 18 Respiratory Effort Blood Pressure 85/46 L 91/49 L 87/65 L Blood Pressure Mean 59 63 72 Pulse Ox 94 94 98 Oxygen Delivery Method Room Air Room Air Room Air 01/20/25 01:29 01/20/25 02:00 01/20/25 02:00 Temperature 98.8 F 98.4 F Temperature Source Oral Pulse Rate 100 92 Respiratory Rate 18 30 H Respiratory Effort Blood Pressure 87/65 L 90/55 L 90/55 L Blood Pressure Mean 72 66 66 Pulse Ox 100 97 Oxygen Delivery Method Room Air 01/20/25 03:00 Temperature 98.4 F Temperature Source Oral Pulse Rate 83 Respiratory Rate 30 H Respiratory Effort Blood Pressure 110/69 Blood Pressure Mean 82 Pulse Ox 97 Oxygen Delivery Method Room Air Sepsis Attestation Sepsis Alert: Yes Sepsis Attestation: Agree w/Sepsis Date exam was performed: 01/20/25 Time exam was performed: 00:02 Possible Source of Sepsis: Unknown Sepsis Organ Dysfunction Criteria Present: SBP < 90 mmHg or MAP < 65 mmHg, Lactic Acid > 2 mmol/L and New/Unexplained change in mental status Fluid Resuscitation Fluid resuscitation indicated?: Yes Fluid Resuscitation ordered: 30 ml/kg fluid bolus ordered Amount of fluid ordered: 3,810 Sepsis Note Date exam was performed: 01/20/25 Time exam was performed: 03:00 Sepsis Attestation: Sepsis re-evaluation was performed Response to fluids: Fluid responsive hypotension MDM MDM MDM Narrative Medical decision making narrative: Given the patient's fever, concern is for sepsis from pneumonia versus UTI versus dehydration. Patient initially bolused normal saline and administered Tylenol orally. I reviewed his laboratory work and he has a leukocytosis of 16.5 with hemoglobin normal at 13.8, hematocrit 40.8, and platelet count normal at 152. Coagulation studies such as INR and APTT within normal limits. BUN of 20 with creatinine 1.46. Review of prior labs does show that he has slight chronic kidney injury. Glucose elevated to 53 but he has a normal anion gap of 14 so I doubt diabetic ketoacidosis. LFTs are grossly unremarkable. Lactic acid elevated at 3.0. Urinalysis obtained and reviewed and is negative for infection with 0-5 WBCs which is within normal limits. On my independent interpretation of his chest x-ray, I see no evidence of pneumonia or consolidation, no pneumothorax. I reviewed the radiology report which confirms my independent interpretation. I do feel that the patient is meeting SIRS criteria and has elevated lactic acid, and may have sepsis of unknown source. He was started on vancomycin and Zosyn per protocol. Blood cultures obtained and pending. Given his mental status change and lethargy with lactic acidosis and leukocytosis, I will discuss patient with the hospitalist for admission. I also reviewed his respiratory swabs which are negative for COVID, influenza, and RSV. In discussion with the hospitalist, he requested that since the chest x-ray and urinalysis are negative that CT of the abdomen and pelvis be obtained to rule out intra-abdominal sepsis. CT of the abdomen and pelvis obtained with IV contrast and radiology report reviewed, there is no acute process noted. Patient did have a drop in his blood pressure, but states that he is on antihypertensives even though his blood pressure was never really high. I did review his blood pressures and while it did below 90 systolic, he did have MAP's above 65. He will be bolused the 30 cc/kg. I rediscussed patient with Dr. Gross for admission. Disposition is admit in guarded condition. Critical care time 31 minutes. History & Record Review Discussion w/independent historian: Patient and Family Additional record(s) reviewed:: Prior labs Lab Data Attestation: I reviewed the patient's lab results. Labs: Laboratory Results - last 24 hr 01/19/25 01/19/25 01/19/25 22:38 22:45 22:50 WBC 16.5 H RBC 4.58 L Hgb 13.8 Hct 40.8 MCV 89.1 MCH 30.1 MCHC 33.8 RDW Std Deviation 46.5 H RDW Coeff of Marsha 14.6 Plt Count 152 MPV 11.5 Immature Gran % (Auto) 0.600 Neut % (Auto) 91.8 H Lymph % (Auto) 2.4 L [place] % (Auto) 4.9 Eos % (Auto) 0.1 Baso % (Auto) 0.2 Absolute Neuts (auto) 15.1 H Absolute Lymphs (auto) 0.39 L Nucleated RBC % 0 PT 14.7 INR 1.1 APTT 28.7 Sodium 134 Potassium 3.9 Chloride 102 Carbon Dioxide 18.1 L Anion Gap 14 BUN 20 H Creatinine 1.46 H Estim Creat Clear Calc 61.26 Est GFR (MDRD) Non-Af 51 L BUN/Creatinine Ratio 13.8 Glucose 253 H Lactic Acid 3.0 H* Calcium 9.3 Magnesium 1.5 Total Bilirubin 1.20 AST 21 ALT 20 Alkaline Phosphatase 127 Total Protein 7.3 Albumin 4.1 Globulin 3.2 Albumin/Globulin Ratio 1.3 Vitamin B12 318 Urine Color Urine Clarity Urine pH Ur Specific Vandiver Urine Protein Urine Glucose (UA) Urine Ketones Urine Occult Blood Urine Nitrite Urine Bilirubin Urine Urobilinogen Ur Leukocyte Esterase Urine RBC Urine WBC Ur Squamous Epith Cells Urine Bacteria Urine Mucus Urine Opiates Screen U Buprenorphine Qual Ur Oxycodone Screen Urine Methadone Screen Urine Fentanyl Screen Ur Barbiturates Screen Ur Phencyclidine Scrn Ur Amphetamines Screen U Benzodiazepines Scrn Urine Cocaine Screen U Cannabinoids Screen POC Glucose 261 H 01/19/25 01/20/25 23:00 03:10 WBC RBC Hgb Hct MCV MCH MCHC RDW Std Deviation RDW Coeff of Marsha Plt Count MPV Immature Gran % (Auto) Neut % (Auto) Lymph % (Auto) [place] % (Auto) Eos % (Auto) Baso % (Auto) Absolute Neuts (auto) Absolute Lymphs (auto) Nucleated RBC % PT INR APTT Sodium Potassium Chloride Carbon Dioxide Anion Gap BUN Creatinine Estim Creat Clear Calc Est GFR (MDRD) Non-Af BUN/Creatinine Ratio Glucose Lactic Acid 2.6 H* Calcium Magnesium Total Bilirubin AST ALT Alkaline Phosphatase Total Protein Albumin Globulin Albumin/Globulin Ratio Vitamin B12 Urine Color Yellow Urine Clarity Clear Urine pH 6.0 Ur Specific Vandiver 1.010 Urine Protein Negative Urine Glucose (UA) 1000 H Urine Ketones Negative Urine Occult Blood 25 H Urine Nitrite Negative Urine Bilirubin Negative Urine Urobilinogen Normal Ur Leukocyte Esterase Negative Urine RBC 0 SEEN Urine WBC 0-5 SEEN Ur Squamous Epith Cells 0 SEEN Urine Bacteria 0 SEEN Urine Mucus 0 SEEN Urine Opiates Screen NEGATIVE U Buprenorphine Qual NEGATIVE Ur Oxycodone Screen NEGATIVE Urine Methadone Screen NEGATIVE Urine Fentanyl Screen NEGATIVE Ur Barbiturates Screen NEGATIVE Ur Phencyclidine Scrn NEGATIVE Ur Amphetamines Screen NEGATIVE U Benzodiazepines Scrn NEGATIVE Urine Cocaine Screen NEGATIVE U Cannabinoids Screen NEGATIVE POC Glucose Radiography Chest X-Ray - ED: 1 View, Read by ED Physician and Read by Radiologist Diagnostic Testing: Clinical Impression(s) from Imaging Studies Chest X-Ray 01/19/25 23:13 IMPRESSION: No Acute Findings. Reading [facility] Abdomen/Pelvis CT 01/20/25 00:51 IMPRESSION: No evidence of acute intra-abdominal process. Reading Location: [facility] Management Discussion w/another healthcare provider: Hospitalist (Dr. Pryor) Critical Care Time Critical Care Time: Yes Critical care time (excluding procedures): 30-74 minutes (31), Including time spent:, Discussing w/Patient &/or Family/Computer Network Support Specialist, Discussing w/Consultants, Arranging Admission or Transfer and Performing Direct Patient Care at Bedside Discharge Plan Dx/Rx/DC Orders Clinical Impression: Generalized weakness, Altered mental status, Leukocytosis, Lactic acidosis, Sepsis Disposition Disposition: [facility] Discharge Date/Time: 01/20/25 03:18
[2025-01-19 22:56] LABS: Bedside Glucose 261 mg/dL (74-106)
[2025-01-19] MEDS: 0.9% Normal Saline (1000mL) 1,000 ML 999 ML IV (23:04)
[2025-01-19] MEDS: Acetaminophen 325 MG Tablet 650 MG PO (23:04)
[2025-01-19 23:10] LABS: Bacteria 0 SEEN /hpf (None Seen); Mucous, Urine 0 SEEN /hpf (<or=2+); Red Blood Cells-Urine 0 SEEN /hpf (0-5); Squamous Epithelial Cells - UA 0 SEEN /hpf (0-5)
[2025-01-19 23:11] LABS: Absolute Lymphocyte Count 0.39 X10^3/uL (0.83-4.51); Absolute Neutrophil Count 15.1 X10^3/uL (2.0-7.7); Basophil# 0.04 X10^3/uL; Basophil% 0.2 % (0-1); Eosinophil# 0.01 X10^3/uL; Eosinophils% 0.1 % (0-5); Hematocrit 40.8 % (40-54); Hemoglobin 13.8 g/dL (13.0-16.5); Lymphocyte # 0.39 X10^3/ul (0.83-4.51); Lymphocyte % 2.4 % (19-41); Mean Corp Hgb Conc 33.8 g/dL (32-36); Mean Corpuscular Hgb 30.1 pg (27.0-32.0); Mean Corpuscular Volume 89.1 fL (80-94); Mean Platelet Vol. 11.5 fl (6.2-12.0); Monocyte% 4.9 % (0-10); NRBC Flagged by Analyzer 0 % (0-5); Neutrophil # 15.11 X10^3/uL (2.7-7.7); Neutrophil % 91.8 % (47-70); POSITIVE DIFFERENTIAL YES; Platelet Count 152 K/mm3 (150-450); RBC Distribution Width CV 14.6 % (11.6-14.6); RBC Distribution Width SD 46.5 fl (35.1-43.9); Red Blood Count 4.58 M/mm3 (4.6-6.2); White Blood Count 16.5 K/mm3 (4.4-11.0)
[2025-01-19 23:11] LABS: Color, Urine Yellow (Yellow); Glucose, Dipstick 1000 mg/dl (Normal); Ketone-Dipstick Negative (Negative); Leukocyte Esterase-Dipstick Negative /ul (Negative); Nitrite-Dipstick Negative (Negative); Occult Blood-Urine 25 /ul (Negative); Protein-Dipstick Negative (Negative); Urine Bilirubin Dipstick Negative (Negative); Urine Clarity Clear (Clear); Urine Urobilinogen Normal (Normal)
--- NOTE | 2025-01-19 23:13 | RAD_ITS ---
PROCEDURE: CHEST 1 VIEW (PORTABLE) 01/19/2025 REASON FOR EXAM: FEVER TECHNIQUE: Frontal view of the chest. COMPARISON: CT chest 10/19/2022 FINDINGS: Hardware: None Heart: Heart size is mildly enlarged. Lungs: No focal consolidation. No pneumothorax. No pleural effusion. Bones: The bones are unremarkable. Other: RAD/Chest 1 View (Portable) IMPRESSION: No Acute Findings. Reading Location: [facility]
[2025-01-19 23:18] LABS: International Normalized Ratio 1.1; Prothrombin Time (Protime)PT. 14.7 SECONDS (11.7-14.9)
[2025-01-19 23:19] LABS: Partial Thromboplast Time 28.7 Seconds (24.1-36.2)
[2025-01-19 23:30] LABS: White Blood Cells 0-5 SEEN /hpf (0-5)
[2025-01-19 23:33] LABS: ALB/GLOB Ratio 1.3 RATIO (0.9-2.4); AST(SGOT) 21 U/L (<=37); Alanine Aminotransfer ALT/SGPT 20 U/L (<=46); Albumin, Serum 4.1 g/dL (3.4-4.8); Alkaline Phosphatase 127 U/L (40-129); Anion Gap 14 (5-15); BUN 20 mg/dL (4-19); BUN/Creat Ratio 13.8 RATIO (10-20); Calcium,Total 9.3 mg/dL (7.6-11.0); Carbon Dioxide 18.1 mmol/L (21.0-32.0); Chloride 102 mmol/L (98-108); Creatinine, Serum 1.46 mg/dL (0.70-1.20); EST Glomerular Filtration Rate 51 (>60); Estimated Creatinine Clearance 61.26 ml/min (50-250); Globulin 3.2 g/dL (2.2-4.2); Glucose 253 mg/dL (70-99); Potassium 3.9 mmol/L (3.3-5.1); Protein, Total 7.3 g/dL (5.9-8.4); Sodium Level 134 mmol/L (133-145)
[2025-01-19 23:39] VITALS: BP 109/51; PULSE 93; RESP 24; TEMP 37.7; O2SAT 96
[2025-01-19 23:41] VITALS: BP 109/51; PULSE 93; RESP 24; TEMP 37.7; O2SAT 96
[2025-01-20] VITALS (22 sets, daily range): BP systolic 85–132; BP diastolic 46–83; PULSE 70–100; RESP 16–34; TEMP 36.9–37.6; O2SAT 94–100; BMI 43.4
[2025-01-20] MEDS: 0.9% Normal Saline (1000mL) 1,000 ML 250 ML IV (00:15)
[2025-01-20] MEDS: Piperacil/Tazobactam 4.5 GM in 0.9% Normal Saline (100mL MB+) 100 ML IV (00:16)
--- NOTE | 2025-01-20 00:51 | CT_ITS ---
PROCEDURE: ABDOMEN/PELVIS W IV CONT ONLY 01/20/2025 REASON FOR EXAM: SEPSIS, PAIN TECHNIQUE: Abdomen and pelvis CT with intravenous contrast. Coronal and Sagittal reconstruction series were provided. PATIENT PREPARATION: Per protocol ORAL CONTRAST TYPE: None. CONTRAST: 96 cc Isovue 370 IV One or more dose reduction techniques were used (e.g., Automated exposure control, adjustment of the mA and/or kV according to patient size, use of iterative reconstruction technique. RADIATION DOSE SUMMARY: CTDlvol: 24.18 mGy DLP: 2156.38 mGycm COMPARISON: 01/07/2022 FINDINGS: The lung bases appear clear. Three-vessel coronary calcification noted. No pericardial or pleural effusion seen. A few small calcified gallstones dependently within a nondistended, noninflamed appearing gallbladder. The liver, adrenal glands, pancreas and spleen appear within limits. Abdominal aorta appears within limits without aneurysm. Aortoiliac atherosclerotic calcification noted. No adenopathy. No bowel dilation or free air. Diverticulosis without diverticulitis. Normal caliber appendix without secondary signs. The bladder appears within limits. Mild prostatomegaly. No free fluid. Multilevel spondylosis/discogenic change and old L1 compression deformity again noted. CT/Abdomen/Pelvis W IV Cont ONLY IMPRESSION: No evidence of acute intra-abdominal process. Reading Location: [id number]
[2025-01-20] MEDS: Vancomycin HCl 2,000 MG in 0.9% Normal Saline (500mL Bag) 500 ML 250 MG IV (01:11)
[2025-01-20] MEDS: 0.9% Normal Saline (1000mL) 1,000 ML 999 ML IV ×3 (01:30→04:27)
--- NOTE | 2025-01-20 02:11 | PCM.HP.STD ---
[facility] - General General Date of Admission: 01/20/25 Date of Service: 01/20/25 Chief Complaint: Fever, AMS, Lethargy and Generalized Weakness. 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 Mr. Mullins is not a fully-reliable historian at this time so information was gathered from chart, medical staff and computer. According to the records his problems began on the evening of January 19, 2025 when his noted he was unable to get out of his chair and had to rock [id number] before he could stand up. He was also noted to be incontinent of urine with lethargy and confusion. He apparently felt better earlier in the day because he allegedly drove to [place] and back prior to the onset of his more severe symptoms. There was no report of associated chills, nausea, vomiting, diarrhea, constipation, abdominal pain, chest pain, heart racing, palpitations, dysuria, neck stiffness, headache or rash. In the ER he was noted to have Leukocytosis of 16.5K with Lactic Acidosis of 3 mmol/L present on admission along with Hypotension of 90/55 mmHg noted shortly after admission and Fever of 102 degrees Fahrenheit due to Sepsis of Unknown Origin; with suspicion for Adverse Drug Reaction to metformin with negative CXR, negative UA and CT scan of the abdomen and pelvis that revealed no evidence of acute intraabdominal process complicated by clinical evidence of Acute Metabolic Encephalopathy and Generalized Weakness. He was then admitted to the ICU for ongoing care for a stay that is expected to extend beyond 2 midnights. [facility] Medical History Wears hearing aid Wears glasses Arthritis Kidney stones High cholesterol Back pain Injury of back Difficulty swallowing CPAP (continuous positive airway pressure) dependence History of echocardiogram History of stress test Cardiology follow-up encounter Pulmonary nodules/lesions, multiple Facial nerve paralysis Sleep apnea Kidney disease CAD (coronary artery disease) Anemia Cancer of parotid gland Atherosclerosis of coronary artery of [place] heart without angina pectoris Essential (primary) hypertension Spondylosis of lumbosacral region without myelopathy or radiculopathy Lumbosacral stenosis Radiculopathy of lumbosacral region Degeneration of intervertebral disc of lumbosacral region Nonspecific abnormal unspecified cardiovascular function study Right bundle branch block Diabetes mellitus Hypercholesterolemia Low back pain Obesity Hemosiderin staining Lipodermatosclerosis Venous hypertension, chronic, with ulcer and inflammation Chronic venous insufficiency Edema leg Leg swelling Leg ulcer Home Medications ?Medication ?Instructions ?Recorded ?Last Taken ?Type aspirin 81 mg chewable tablet 81 mg PO DAILY 05/05/16 01/19/25 History nitroglycerin 0.4 mg sublingual 0.4 mg sublingual Q5M PRN CHEST 10/13/17 Unknown History tablet (Nitrostat) PAIN antiarthritic combination no.2 900 1 tab PO QDAY SUPPLEMENT 10/21/17 01/19/25 History mg tablet (glucosamine-chondroitin) metoprolol succinate 50 mg 50 mg PO DAILY #90 tabs 05/25/19 01/19/25 History tablet,extended release 24 hr metformin 500 mg tablet,extended 500 tablet PO BID 05/28/21 01/19/25 History release 24 hr dapagliflozin propanediol 5 mg 10 mg PO DAILY 12/07/22 01/19/25 History tablet (Farxiga) glimepiride 4 mg tablet 4 mg PO DAILY 08/23/23 01/19/25 History lisinopril 10 mg tablet 10 mg PO DAILY BP #90 tabs 06/06/24 01/19/25 Rx atorvastatin 40 mg tablet 40 mg PO QHS 01/20/25 01/19/25 History cholecalciferol (vitamin D3) 125 5,000 unit PO DAILY 01/20/25 01/19/25 History mcg (5,000 unit) tablet dulaglutide 4.5 mg/0.5 mL 4.5 mg subcut QWEEK 01/20/25 01/15/25 History subcutaneous pen injector (Trulicity) Allergy/AdvReac Type Severity Reaction Status Date / Time bee venom protein (honey bee) Allergy Severe Anaphylaxis Verified 01/19/25 22:39 metformin AdvReac Severe lactic Verified 01/20/25 03:17 acidosis Family History Father CAD (coronary artery disease) <55 Mother CAD (coronary artery disease) Sister Breast cancer Hyperlipidemia Surgical History History of cardiac catheterization History of cystoscopy Hx of surgical procedure H/O hernia repair Hx of tonsillectomy History of biopsy History of coronary artery stent placement (10/14/06) Social History Smoking Status: Never smoker alcohol intake: never substance use type: does not use ROS ROS Narrative Full ROS was not possible due to patient's metabolic encephalopathy. Vital Signs Vital Signs Vital Signs: 01/19/25 22:34 01/19/25 22:39 01/19/25 22:40 Temperature 102 F H 102 F H Temperature Source Oral Oral Pulse Rate 98 95 Respiratory Rate 20 H 20 H Respiratory Effort Normal Non-Labored Blood Pressure 116/53 L 116/53 L Blood Pressure Mean 74 74 Pulse Ox 96 95 Oxygen Delivery Method Room Air Room Air 01/19/25 23:06 01/19/25 23:39 01/19/25 23:41 Temperature 100 F H 100 F H Temperature Source Oral Oral Pulse Rate 93 93 Respiratory Rate 24 H 24 H Respiratory Effort Blood Pressure 109/51 L 109/51 L Blood Pressure Mean 70 70 Pulse Ox 96 96 Oxygen Delivery Method Room Air Room Air Room Air 01/20/25 00:25 01/20/25 00:33 01/20/25 01:00 Temperature 99.7 F H 98.8 F Temperature Source Oral Oral Pulse Rate 93 88 100 Respiratory Rate 25 H 18 Respiratory Effort Blood Pressure 85/46 L 91/49 L 87/65 L Blood Pressure Mean 59 63 72 Pulse Ox 94 94 98 Oxygen Delivery Method Room Air Room Air Room Air 01/20/25 01:29 01/20/25 02:00 01/20/25 02:00 Temperature 98.8 F 98.4 F Temperature Source Oral Pulse Rate 100 92 Respiratory Rate 18 30 H Respiratory Effort Blood Pressure 87/65 L 90/55 L 90/55 L Blood Pressure Mean 72 66 66 Pulse Ox 100 97 Oxygen Delivery Method Room Air Weight Weight: 280 lb 13.903 oz Body Mass Index (BMI) 42.7 Physical Exam Const alert and no apparent distress Constitutional Narrative: Patient confused and morbidly obese with nontoxic appearance. General Appearance: cooperative Orientation / Consciousness: confused and lethargic HEENT normocephalic, head/scalp atraumatic, hearing grossly normal bilaterally and moist oral mucous membranes HEENT Narrative: Chronic Left facial droop noted. Eyes PERRL, EOMs intact bilaterally and conjunctivae normal Neck no lymphadenopathy and supple Resp normal respiratory effort, no retractions, no use of accessory muscles and clear to auscultation bilaterally Cardio regular rate and regular rhythm GI normal to inspection, nondistended, normoactive bowel sounds, soft to palpation, non-tender and non-distended GI Narrative: Morbidly obese. Extremity full ROM Extremity Narrative: Patient has signs of chronic venous insufficiency. Skin Skin Narrative: Patient has no evidence of rash, abscess, wounds or jaundice. Neuro CN's II-XII intact bilaterally, moves all extremities and no focal motor deficits Neuro Narrative: Chronic Left facial droop noted. Sensorium / Orientation: awake, alert and oriented to person Speech: speech normal Psych affect normal Results Medical Records Data Attestation: I reviewed the patient's medical records Lab / Micro Data Attestation: I reviewed the patient's lab results. 01/20/25 03:50 01/20/25 03:50 Labs: Laboratory Results - last 24 hr 01/19/25 22:38: POC Glucose 261 H 01/19/25 22:45: WBC 16.5 H, RBC 4.58 L, Hgb 13.8, Hct 40.8, MCV 89.1, MCH 30.1, MCHC 33.8, RDW Std Deviation 46.5 H, RDW Coeff of Marsha 14.6, Plt Count 152, MPV 11.5, Immature Gran % (Auto) 0.600, Neut % (Auto) 91.8 H, Lymph % (Auto) 2.4 L, [place] % (Auto) 4.9, Eos % (Auto) 0.1, Baso % (Auto) 0.2, Absolute Neuts (auto) 15.1 H, Absolute Lymphs (auto) 0.39 L, Nucleated RBC % 0, PT 14.7, INR 1.1, APTT 28.7, Sodium 134, Potassium 3.9, Chloride 102, Carbon Dioxide 18.1 L, Anion Gap 14, BUN 20 H, Creatinine 1.46 H, Estim Creat Clear Calc 61.26, Est GFR (MDRD) Non-Af 51 L, BUN/Creatinine Ratio 13.8, Glucose 253 H, Calcium 9.3, Total Bilirubin 1.20, AST 21, ALT 20, Alkaline Phosphatase 127, Total Protein 7.3, Albumin 4.1, Globulin 3.2, Albumin/Globulin Ratio 1.3 01/19/25 22:50: Lactic Acid 3.0 H* 01/19/25 23:00: Urine Color Yellow, Urine Clarity Clear, Urine pH 6.0, Ur Specific [place] 1.010, Urine Protein Negative, Urine Glucose (UA) 1000 H, Urine Ketones Negative, Urine Occult Blood 25 H, Urine Nitrite Negative, Urine Bilirubin Negative, Urine Urobilinogen Normal, Ur Leukocyte Esterase Negative, Urine RBC 0 SEEN, Urine WBC 0-5 SEEN, Ur Squamous Epith Cells 0 SEEN, Urine Bacteria 0 SEEN, Urine Mucus 0 SEEN Micro: Microbiology 01/19/25 22:49 Mucosa - Nose SARS-CoV-2, Influenza & RSV (PCR) - Final Imaging Radiology Impression Chest X-Ray 01/19/25 23:13 IMPRESSION: No Acute Findings. [facility]elvis CT 01/20/25 00:51 IMPRESSION: No evidence of acute intra-abdominal process. Reading Location: [id number] Assessment & Plan Assessment/Plan (1) Sepsis: QUALIFIERS: Sepsis acute organ dysfunction status: with acute organ dysfunction Sepsis type: sepsis due to unspecified organism Severe sepsis acute organ dysfunction type: encephalopathy Severe sepsis shock status: without septic shock Qualified Code(s): A41.9 - Sepsis, unspecified organism; R65.20 - Severe sepsis without septic shock; G93.41 - Metabolic encephalopathy (2) Leukocytosis: QUALIFIERS: Leukocytosis type: unspecified Qualified Code(s): D72.829 - Elevated white blood cell count, unspecified (3) Lactic acidosis: (4) Fever: QUALIFIERS: Fever type: unspecified Qualified Code(s): R50.9 - Fever, unspecified (5) Adverse drug reaction: QUALIFIERS: Encounter type: initial encounter Qualified Code(s): T50.905A - Adverse effect of unspecified drugs, medicaments and biological substances, initial encounter (6) Acute metabolic encephalopathy: (7) Generalized weakness: (8) Morbid obesity with BMI of 40.0-44.9, adult: (9) Diabetes mellitus: QUALIFIERS: Diabetes mellitus complication status: without complication Diabetes mellitus remote computer terminal operator insulin use: without remote computer terminal operator use Diabetes mellitus type: type 2 Qualified Code(s): E11.9 - Type 2 diabetes mellitus without complications PLAN: Plan 1. Leukocytosis of 16.5K with Lactic Acidosis of 3 mmol/L present on admission along with Hypotension of 90/55 mmHg noted shortly after admission and Fever of 102 degrees Fahrenheit due to Sepsis of Unknown Origin; with suspicion for Adverse Drug Reaction to metformin with negative CXR, negative UA and CT scan of the abdomen and pelvis that revealed no evidence of acute intraabdominal process - Admit to ICU for treatment under the sepsis protocol. Continue empiric IV piperacillin-tazobactam and IV vancomycin and await culture and sensitivity data. Serialize lactate. Give acetaminophen prn pain or fever. Give ondansetron IV prn for nausea and vomiting. Stop metformin and add to list of allergies to prevent potential recurrence. Finally, we will consult airline stewardess to see this patient on rounds in the AM for further recommendations with help appreciated in advance. 2. Acute Metabolic Encephalopathy due to #1 - Check MRI of brain in AM to evaluate for potential neurologic insult not apparent on CT. Check TSH, B12, Folate, HgbA1c, ELIZABETH and UDS to evaluate for potentially reversible causes of confusion. We will minimize MAKEUP ARTISTRY INSTRUCTOR-active medications in an effort to allow sensorium to clear. Otherwise, maintain supportive care as outlined above and monitor for improvement. 3. Generalized Weakness attributable to #1 & #2 - PT/OT and Case Management to consult and treat on rounds in the AM for further recommendations with help appreciated in advance. 4. Morbid Obesity; with BMI of 42.7 this admission plus BETSY; on CPAP adding to the burden of disease outlined from #1 - #3 - Weight loss will be recommended. Check TSH. Resume nocturnal CPAP. This complicates his case and may hamper recovery. 5. DM-2; of unknown control on metformin, glimepiride, dapagliflozin and dulaglutide adding to the medical complexity of #1 - #4 - ADA diet. FSBS q. AC/HS plus SSI. Check HgbA1c to objectively assess quality of diabetic control. 6. Essential hypertension; on lisinopril and metoprolol - Hold scheduled antihypertensives in light of hypotension outlined in #1. 7. Hyperlipidemia; on atorvastatin - Maintain statin and check Lipid Profile. 8. CAD; s/p stent (2006) - Stable. Resume BASA daily. 9. History of RBBB - Noted. 10. History of pulmonary nodules - Noted. 11. Chronic anemia - Stable with hemoglobin of 13.8 g/dL and MCV of 89.1 fL present on admission. 12. Chronic venous insufficiency; with lipodermatosclerosis and history of ulceration - Stable. 13. 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 14. History of hernia; s/p repair - Noted. 15. History of renal calculi - Noted. 16. OA; with DDD and lumbosacral stenosis; with radiculopathy causing low back pain - Stable. Give acetaminophen prn as outlined in #1. 17. DVT/GI prophylaxis - Enoxaparin 40 mg sq BID plus SCD's. Pantoprazole 40 mg PO daily. Total time: Approximately (but not less than) 75 minutes. Sepsis Attestation Sepsis Alert: Yes Sepsis Attestation: Sepsis Ruled Out Date exam was performed: 01/20/25 Time exam was performed: 03:15 Possible Source of Sepsis: Unknown Sepsis Organ Dysfunction Criteria Present: SBP < 90 mmHg or MAP < 65 mmHg, Lactic Acid > 2 mmol/L and New/Unexplained change in mental status Fluid Resuscitation Fluid resuscitation indicated?: Yes Fluid Resuscitation ordered: 30 ml/kg fluid bolus ordered Amount of fluid ordered: 4 Sepsis Note Date exam was performed: 01/20/25 Time exam was performed: 06:27 Sepsis Attestation: Sepsis re-evaluation was performed Response to fluids: Fluid responsive hypotension Charges/Coding Visit Charges Inpatient E&M: 18423 Init Hosp L3
[2025-01-20 03:04] LABS: Reflex Lactate? Y
[2025-01-20 03:53] LABS: Amphetamine Urine NEGATIVE (<1000 ng/mL); Barbiturate Urine NEGATIVE (< 200 ng/mL); Benzodiazepine Urine NEGATIVE (< 200 ng/mL); Buprenorphine Urine NEGATIVE (< 200 ng/mL); Cocaine Urine NEGATIVE (< 300 ng/mL); Fentanyl, Urine NEGATIVE; Methadone Urine NEGATIVE (< 300 ng/mL); Opiates Urine NEGATIVE (< 300 ng/mL); Oxycodone, Urine NEGATIVE (< 100 ng/mL); PCP Urine NEGATIVE (< 25 ng/mL); THC Urine NEGATIVE (< 50 ng/mL)
[2025-01-20 04:01] LABS: Lactic Acid 2.6 mmol/L (0.0-2.0)
[2025-01-20 04:06] LABS: Absolute Neutrophil Count 11.8 X10^3/uL (2.0-7.7); Basophil# 0.02 X10^3/uL; Basophil% 0.2 % (0-1); Hematocrit 34.9 % (40-54); Hemoglobin 11.7 g/dL (13.0-16.5); Lymphocyte % 3.1 % (19-41); Mean Corp Hgb Conc 33.5 g/dL (32-36); Mean Corpuscular Hgb 30.2 pg (27.0-32.0); Mean Corpuscular Volume 89.9 fL (80-94); Mean Platelet Vol. 11.9 fl (6.2-12.0); Monocyte# 0.51 X10^3/uL; NRBC Flagged by Analyzer 0 % (0-5); Neutrophil # 11.75 X10^3/uL (2.7-7.7); Neutrophil % 92.1 % (47-70); POSITIVE DIFFERENTIAL YES; Platelet Count 109 K/mm3 (150-450); RBC Distribution Width CV 14.6 % (11.6-14.6); RBC Distribution Width SD 47.8 fl (35.1-43.9); Red Blood Count 3.88 M/mm3 (4.6-6.2); White Blood Count 12.8 K/mm3 (4.4-11.0)
[2025-01-20 04:07] LABS: Magnesium 1.5 mg/dL (1.5-2.2); Vitamin B12 318 pg/mL (180-914)
[2025-01-20] MEDS: 0.9% Normal Saline (1000mL) 1,000 ML 100 ML IV (04:35)
[2025-01-20 04:46] LABS: Alcohol, Blood (Medical)-Serum < 10.1 mg/dL (<=10.0)
[2025-01-20 05:07] LABS: Phosphorus 2.8 mg/dL (2.7-4.5)
[2025-01-20 05:29] LABS: ALB/GLOB Ratio 1.4 RATIO (0.9-2.4); AST(SGOT) 19 U/L (<=37); Alanine Aminotransfer ALT/SGPT 17 U/L (<=46); Albumin, Serum 3.4 g/dL (3.4-4.8); Alkaline Phosphatase 100 U/L (40-129); Anion Gap 12 (5-15); BUN 18 mg/dL (4-19); BUN/Creat Ratio 13.3 RATIO (10-20); Calcium,Total 8.2 mg/dL (7.6-11.0); Carbon Dioxide 17.5 mmol/L (21.0-32.0); Chloride 106 mmol/L (98-108); Cholesterol 98 mg/dL (<=200); Creatinine, Serum 1.36 mg/dL (0.70-1.20); EST Glomerular Filtration Rate 56 (>60); Estimated Creatinine Clearance 66.37 ml/min (50-250); Globulin 2.5 g/dL (2.2-4.2); Glucose 177 mg/dL (70-99); High Density Lipoprotein 30 mg/dL; Low Density Lipoprotein Calc. 55 mg/dL; Protein, Total 5.9 g/dL (5.9-8.4); Sodium Level 136 mmol/L (133-145); Thyroid Stim Hormone (TSH) 0.306 uIU/mL (0.300-4.200); Total Bilirubin 1.26 mg/dL (0.00-1.30); Triglycerides 66 mg/dL; Very Low Density Lipoprotein 13 mg/dL (5-40)
--- NOTE | 2025-01-20 05:49 | CPS ---
Patient refused PAP therapy
[2025-01-20 06:10] LABS: FOLATES,SERUM (FOLIC ACID) 9.58 ng/mL (4.60-34.80)
[2025-01-20 06:19] LABS: Hemoglobin A1c 8.8 % (<=5.6)
--- NOTE | 2025-01-20 07:34 | PN.HOSP_ITS ---
Reason for Visit Reason for Visit: Diagnoses Sepsis, unspecified organism (01/20/25) Elevated white blood cell count, unspecified (01/20/25) Type 2 diabetes mellitus without complications (01/20/25) Morbid (severe) obesity due to excess calories (01/20/25) Acidosis, unspecified (01/20/25) Metabolic encephalopathy (01/20/25) Fever, unspecified (01/20/25) Weakness (01/20/25) Severe sepsis without septic shock (01/20/25) Adverse effect of unspecified drugs, medicaments and biological substances, initial encounter (01/20/25) Body mass index [BMI] 40.0-44.9, adult (01/20/25) Objective Data Objective Data Vital Signs: Vital Signs Temp Pulse Resp BP Pulse Ox O2 Del Method O2 Flow Rate 99.1 F 81 26 H 104/52 L 98 Nasal Cannula 2 01/20/25 06:00 01/20/25 06:00 01/20/25 06:00 01/20/25 06:00 01/20/25 06:00 01/20/25 06:00 01/20/25 06:00 Oxygen Flow Rate (L/min) 2 Oxygen Delivery Method Nasal Cannula Weight: 285 lb 7.978 oz Body Mass Index (BMI) 43.4 Intake & Output: Intake and Output for Last 24 Hours 01/18/25 01/19/25 01/20/25 23:59 23:59 23:59 Intake Total 5523.33 / 5523.33 Output Total 150 / 150 Balance 5373.33 / 5373.33 Lab / Micro Data 01/20/25 03:50 01/20/25 03:50 Labs: Laboratory Results - last 24 hr 01/19/25 22:38: POC Glucose 261 H 01/19/25 22:45: WBC 16.5 H, RBC 4.58 L, Hgb 13.8, Hct 40.8, MCV 89.1, MCH 30.1, MCHC 33.8, RDW Std Deviation 46.5 H, RDW Coeff of Marsha 14.6, Plt Count 152, MPV 11.5, Immature Gran % (Auto) 0.600, Neut % (Auto) 91.8 H, Lymph % (Auto) 2.4 L, Guthrie % (Auto) 4.9, Eos % (Auto) 0.1, Baso % (Auto) 0.2, Absolute Neuts (auto) 15.1 H, Absolute Lymphs (auto) 0.39 L, Nucleated RBC % 0, PT 14.7, INR 1.1, APTT 28.7, Sodium 134, Potassium 3.9, Chloride 102, Carbon Dioxide 18.1 L, Anion Gap 14, BUN 20 H, Creatinine 1.46 H, Estim Creat Clear Calc 61.26, Est GFR (MDRD) Non-Af 51 L, BUN/Creatinine Ratio 13.8, Glucose 253 H, Calcium 9.3, Phosphorus 2.8, Magnesium 1.5, Total Bilirubin 1.20, AST 21, ALT 20, Alkaline Phosphatase 127, Total Protein 7.3, Albumin 4.1, Globulin 3.2, Albumin/Globulin Ratio 1.3, Vitamin B12 318 01/19/25 22:50: Lactic Acid 3.0 H* 01/19/25 23:00: Urine Color Yellow, Urine Clarity Clear, Urine pH 6.0, Ur Specific B[place]roft 1.010, Urine Protein Negative, Urine Glucose (UA) 1000 H, Urine Ketones Negative, Urine Occult Blood 25 H, Urine Nitrite Negative, Urine Bilirubin Negative, Urine Urobilinogen Normal, Ur Leukocyte Esterase Negative, Urine RBC 0 SEEN, Urine WBC 0-5 SEEN, Ur Squamous Epith Cells 0 SEEN, Urine Bacteria 0 SEEN, Urine Mucus 0 SEEN, Urine Opiates Screen NEGATIVE, U Buprenorphine Qual NEGATIVE, Ur Oxycodone Screen NEGATIVE, Urine Methadone Screen NEGATIVE, Urine Fentanyl Screen NEGATIVE, Ur Barbiturates Screen NEGATIVE, Ur Phencyclidine Scrn NEGATIVE, Ur Amphetamines Screen NEGATIVE, U Benzodiazepines Scrn NEGATIVE, Urine Cocaine Screen NEGATIVE, U Cannabinoids Screen NEGATIVE 01/20/25 03:10: Lactic Acid 2.6 H* 01/20/25 03:50: WBC 12.8 H, RBC 3.88 L, Hgb 11.7 L, Hct 34.9 L, MCV 89.9, MCH 30.2, MCHC 33.5, RDW Std Deviation 47.8 H, RDW Coeff of Marsha 14.6, Plt Count 109 L, MPV 11.9, Immature Gran % (Auto) 0.600, Neut % (Auto) 92.1 H, Lymph % (Auto) 3.1 L, Guthrie % (Auto) 4.0, Eos % (Auto) 0.0, Baso % (Auto) 0.2, Absolute Neuts (auto) 11.8 H, Absolute Lymphs (auto) 0.40 L, Nucleated RBC % 0, Sodium 136, Potassium 4.0, Chloride 106, Carbon Dioxide 17.5 L, Anion Gap 12, BUN 18, C reatinine 1.36 H, Estim Creat Clear Calc 66.37, Est GFR (MDRD) Non-Af 56 L, BUN/Creatinine Ratio 13.3, Glucose 177 H, Hemoglobin A1c 8.8 H, Lactic Acid 2.0, Calcium 8.2, Total Bilirubin 1.26, AST 19, ALT 17, Alkaline Phosphatase 100, Total Protein 5.9, Albumin 3.4, Globulin 2.5, Albumin/Globulin Ratio 1.4, Triglycerides 66, Cholesterol 98, LDL Cholesterol, Calc 55, VLDL Cholesterol 13, HDL Cholesterol 30 L, Cholesterol/HDL Ratio 3.30, Serum Folate 9.58, TSH 0.306, Ethyl Alcohol < 10.1 Micro: Microbiology 01/19/25 22:49 Mucosa - Nose SARS-CoV-2, Influenza & RSV (PCR) - Final Radiography Diagnostic Testing: Radiology Impression Chest X-Ray 01/19/25 23:13 IMPRESSION: No Acute Findings. Reading Location: [facility] Abdomen/Pelvis CT 01/20/25 00:51 IMPRESSION: No evidence of acute intra-abdominal process. Reading Location: [facility] Physical Exam Narrative Seen and examined. Patient was admitted after the report of altered mental status and fever by . Patient denies acute change mental status and he said he went to watch his son football game. He said he maintained his awareness and alertness. He has been weak for last couple weeks. He has chronic urinary incontinence Physical exam: General: Alert, Oriented x3, Cooperative. Morbid is a 43.4 kg/m? 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 Titanium plating left eyelid. Atraumatic, PERRLA, EOMI, Normocephalic. Oral: No Gingival or Mucosal Lesions/ Ulcerations Neck: Supple, No JVD, Negative Carotid Bruits Chest wall/Lungs: Air entry diminished in bilateral lung bases. No crepitation/rhonchi Cardiovascular: Regular rate and rhythm, Normal S1,S2, No M/G/R Abdomen: Bowel Sounds Present, Soft, Non Tender, Non-Distended : No dysuria. No renal angle tenderness. No suprapubic tenderness. Extremities: Bilateral lower leg chronic swelling, Capillary Refill Less than 3 Seconds Skin: Chronic venous edema and varicose veins changes with grayish discoloration and features of venous hypertension Musculoskeletal: No Tenderness to Palpation of Joints or Extremities. ROM restricted Neurological: Cranial nerves II-XII grossly intact, DTR 2+/4. No acute focal neurological deficit. Psych/Mental Status: Normal Affect, Appropriate. Assessment & Plan Assessment/Plan (1) Sepsis: QUALIFIERS: Sepsis acute organ dysfunction status: with acute organ dysfunction Sepsis type: sepsis due to unspecified organism Severe sepsis acute organ dysfunction type: encephalopathy Severe sepsis shock status: without septic shock Qualified Code(s): A41.9 - Sepsis, unspecified organism; R65.20 - Severe sepsis without septic shock; G93.41 - Metabolic encephalopathy (2) Leukocytosis: QUALIFIERS: Leukocytosis type: unspecified Qualified Code(s): D 72.829 - Elevated white blood cell count, unspecified (3) Lactic acidosis: (4) Fever: QUALIFIERS: Fever type: unspecified Qualified Code(s): R50.9 - Fever, unspecified (5) Adverse drug reaction: QUALIFIERS: Encounter type: initial encounter Qualified Code(s): T50.905A - Adverse effect of unspecified drugs, medicaments and biological substances, initial encounter (6) Acute metabolic encephalopathy: (7) Generalized weakness: (8) Morbid obesity with BMI of 40.0-44.9, adult: (9) Diabetes mellitus: QUALIFIERS: Diabetes mellitus complication status: without complication 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 He had problem getting out of chair. Has been urinary incontinent few times on the day of admission. 1. Concern of sepsis: Patient had fever, hypotension, leukocytosis and lactic acidosis. BP recorded 85/46, 87/65 x 2. Exact focus unclear. Started on broad-spectrum antibiotic. Chest x-ray shows no acute finding. CT abdomen pelvis no evidence of acute intra-abdominal process. Lactic acid 3.0, repeat 2.6. UA shows negative LE, nitrite, WBC 0-5 RBC 0 cells. Negative bacteria mucus and squamous epithelial cells. TSH normal. Triple PCR for SARS-CoV-2, flu and RSV are negative. Blood culture urine culture pending CKD: Patient baseline creatinine runs around 1.3-1.5. Was admitted with creatinine 1.46. Does not meet criteria for JA. 2. Confusion as per : Patient himself denies any change in mental status and he said he watched his football game yesterday. He was not confused disoriented and was fully aware of the surroundings. CT head was not done therefore ordered. Patient has titanium plate on the left eyelid therefore contraindication for MRI But before hand will need CT head proceed further At this point I do not see an indication for MRI brain B12 TSH and folic acid normal. Magnesium was low 1.5. Phosphorus normal. Magnesium infusion ordered 3. Generalized Weakness PT/OT and Case Management to consult and treat on rounds in the AM for further recommendations with help appreciated in advance. 4. Morbid Obesity; with BMI of 42.7 this admission plus BETSY; on CPAP adding to the burden of disease outlined from #1 - #3 - Weight loss will be recommended. Check TSH. Resume nocturnal CPAP. This complicates his case and may hamper recovery. 5. DM-2; of unknown control on metformin, glimepiride, dapagliflozin and dulaglutide adding to the medical complexity of #1 - #4 - ADA diet. FSBS q. AC/HS plus SSI. Check HgbA1c to objectively assess quality of diabetic control. 6. Essential hypertension; on lisinopril and metoprolol - Hold scheduled antihypertensives in light of hypotension outlined in #1. 7. Hyperlipidemia; on atorvastatin - Maintain statin and check Lipid Profile. 8. CAD; s/p stent (2006) - Stable. Resume BASA daily. 9. Chronic venous insufficiency; with lipodermatosclerosis and history of ulceration - Stable. 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 He had reconstruction surgery with [place] on the left eyelid. DVT/GI prophylaxis - Enoxaparin 40 mg sq BID plus SCD's. Pantoprazole 40 mg PO daily. Total time: Approximately (but not less than) 75 minutes. Charges/Coding Visit Charges Inpatient E&M: 89650 Subs Hosp L2
[2025-01-20 07:59] LABS: Reflex Lactate? Y
[2025-01-20] MEDS: Insulin Lispro 100 UNIT/ML INSULN.PEN SC ×3 (08:07→16:26)
[2025-01-20] MEDS: Pantoprazole Sodium 40 MG Tablet PO (08:09)
[2025-01-20] MEDS: Enoxaparin 40 MG/0.4 ML Syringe SC ×2 (08:09→21:50)
[2025-01-20 08:35] LABS: Bedside Glucose 179 mg/dL (74-106)
--- NOTE | 2025-01-20 09:03 | NURSING ---
update of patient status given to yoseph Huber.
--- NOTE | 2025-01-20 09:27 | CT_ITS ---
EXAM: CT Head Without Intravenous Contrast CLINICAL INDICATION: AMS PER TECHNIQUE: Axial computed tomography images of the head/brain without intravenous contrast. This CT exam was performed using one or more of the following dose reduction techniques: automated exposure control, adjustment of the mA and/or kV according to patient size, and/or use of iterative reconstruction technique. COMPARISON: No relevant prior studies available. FINDINGS: BRAIN AND EXTRA-AXIAL SPACES: Areas of decreased attenuation in the deep cerebral white matter are consistent with small vessel ischemic/degenerative changes. The cerebral and cerebellar sulci are mildly prominent consistent with mild brain atrophy. No acute intracranial hemorrhage, midline shift or mass effect. If symptoms persist, further evaluation with MRI is recommended. BONES/JOINTS: Unremarkable. No acute fracture. SOFT TISSUES: Unremarkable. SINUSES: Unremarkable as visualized. No acute sinusitis. MASTOID AIR CELLS: Unremarkable as visualized. No mastoid effusion. CT/Brain/Head without Contrast IMPRESSION: 1. Small vessel ischemic/degenerative changes. 2. No acute intracranial hemorrhage, midline shift or mass effect. If symptoms persist, further evaluation with MRI is recommended. Reading Location: [id number]
[2025-01-20 09:32] LABS: Lactic Acid 1.3 mmol/L (0.0-2.0)
[2025-01-20] MEDS: Magnesium Sulfate 2 GM in Dextrose 5%-Water (100mL Bag) 100 ML IV (10:57)
[2025-01-20 12:06] LABS: Bedside Glucose 233 mg/dL (74-106)
--- NOTE | 2025-01-20 13:15 | CASEMGMT ---
RN?CM?INFORMATION STRATEGIST?CM?to room to meet with patient for initial transition planning/care coordination?assessment.?RN?CM?introduced self and role at [facility].? Pt voices understanding and consents to?assessment?at this time.? Pt sitting up in chair in room in no distress at this time.? Pt is A/O at this time and answers all questions appropriately.?? Care providers, pharmacy, and demographics verified/updated at this time. PCP: Dr Soria Specialists: Dr Oconnor-cardiology, Dr Mar-radiation onc, Dr Santoyo-pulmonology. Pt also sees a surgeon @ in [place]. Preferred Pharmacy: [facility] Insurance:[employer] Prescription Benefit:?yes LNOK: , Cecile. Son, Conrad. Dtr, Siena Living Arrangements: Lives w/ in 1 1/2 story home w/2 steps to enter home. There are 2 steps up to kitchen and 3 to the bedrooms, but states he stays on the main floor and sleeps in a recliner. There is a bathroom on the main floor as well on the floor where the bedrooms are. Mostly indep w/ADL's, able to assist if needed. They share home mgnt tasks and hire a cleaning lady 2 x's/month. Transportation:?Pt states drives self and states no transportation concerns at this time.? also drives. DME: ?States has the following DME:?cane that he uses PRN, shower chair, sock aid, senior formulation scientist, funtioning glucmeter w/sufficient supplies. Pt states no need for further DME at this time.? HHC/SNF: No hx of either. Denies needs for HHC or OP therapy and no needs identified. Pt wishes to return home and states has no concerns with going home at time of discharge.? ?CM?to follow for any discharge planning/needs.? Pt voices no concerns/needs at this time.? Advised pt to ask for?CM?if any questions/concerns/needs arise.? Voices understanding. PLAN:??Home DGiaujenny BSN?RN?CM
[2025-01-20] MEDS: Insulin Glargine-YFGN 100 UNIT/ML Pen 15 UNIT SC (14:13)
--- NOTE | 2025-01-20 15:33 | NURSING ---
pt's Cecile notified of patient transferred to PCU room 114. Report had been called to ARIADNA Patel.
[2025-01-20] MEDS: Insulin Lispro 100 UNIT/ML INSULN.PEN 8 UNIT SC (16:26)
[2025-01-20 16:47] LABS: Bedside Glucose 160 mg/dL (74-106)
[2025-01-20] MEDS: Atorvastatin Calcium 40 MG Tablet PO (21:50)
[2025-01-20 22:09] LABS: Bedside Glucose 143 mg/dL (74-106)
[2025-01-21 02:32] VITALS: RESP 18
[2025-01-21 03:11] VITALS: BMI 44.0
[2025-01-21 03:45] VITALS: BP 119/67; PULSE 66; RESP 18; TEMP 37.2; O2SAT 99
[2025-01-21] MEDS: Insulin Lispro 100 UNIT/ML INSULN.PEN 8 UNIT SC ×2 (07:45→11:22)
[2025-01-21] MEDS: Aspirin 81 MG TAB.CHEW PO (07:47)
[2025-01-21 07:49] VITALS: BP 115/73; PULSE 71; RESP 16; TEMP 36.4; O2SAT 98
[2025-01-21 08:10] LABS: Bedside Glucose 108 mg/dL (74-106)
[2025-01-21 09:52] LABS: Absolute Lymphocyte Count 0.57 X10^3/uL (0.83-4.51); Basophil# 0.01 X10^3/uL; Basophil% 0.1 % (0-1); Eosinophil# 0.16 X10^3/uL; Eosinophils% 2.2 % (0-5); Hematocrit 35.1 % (40-54); Hemoglobin 11.9 g/dL (13.0-16.5); Lymphocyte # 0.57 X10^3/ul (0.83-4.51); Lymphocyte % 7.8 % (19-41); Mean Corp Hgb Conc 33.9 g/dL (32-36); Mean Corpuscular Hgb 30.4 pg (27.0-32.0); Mean Corpuscular Volume 89.5 fL (80-94); Mean Platelet Vol. 11.4 fl (6.2-12.0); Monocyte# 0.55 X10^3/uL; Monocyte% 7.6 % (0-10); NRBC Flagged by Analyzer 0 % (0-5); Neutrophil # 5.96 X10^3/uL (2.7-7.7); Neutrophil % 81.9 % (47-70); POSITIVE DIFFERENTIAL YES; Platelet Count 104 K/mm3 (150-450); RBC Distribution Width CV 14.8 % (11.6-14.6); RBC Distribution Width SD 47.8 fl (35.1-43.9); Red Blood Count 3.92 M/mm3 (4.6-6.2); White Blood Count 7.3 K/mm3 (4.4-11.0)
[2025-01-21 09:59] VITALS: BP 115/73; PULSE 71
[2025-01-21] MEDS: Metoprolol(XL)Succ 50 MG Tablet PO (09:59)
[2025-01-21] MEDS: Cholecalciferol (Vit D3) 125 MCG CAPSULE (5,000 UNITS) PO (09:59)
[2025-01-21] MEDS: Pantoprazole Sodium 40 MG Tablet PO (09:59)
[2025-01-21] MEDS: Insulin Glargine-YFGN 100 UNIT/ML Pen 15 UNIT SC (10:00)
[2025-01-21] MEDS: Enoxaparin 40 MG/0.4 ML Syringe SC (10:00)
[2025-01-21 10:40] LABS: Anion Gap 10 (5-15); BUN 15 mg/dL (4-19); BUN/Creat Ratio 13.5 RATIO (10-20); Calcium,Total 8.2 mg/dL (7.6-11.0); Carbon Dioxide 16.7 mmol/L (21.0-32.0); Chloride 108 mmol/L (98-108); Creatinine, Serum 1.14 mg/dL (0.70-1.20); EST Glomerular Filtration Rate 69 (>60); Estimated Creatinine Clearance 79.82 ml/min (50-250); Glucose 159 mg/dL (70-99); Potassium 3.7 mmol/L (3.3-5.1); Sodium Level 135 mmol/L (133-145)
[2025-01-21] MEDS: Insulin Lispro 100 UNIT/ML INSULN.PEN SC (11:23)
[2025-01-21 11:58] LABS: Bedside Glucose 227 mg/dL (74-106)
--- NOTE | 2025-01-21 12:08 | DCINST_ITS ---
Discharge Instructions Diet Discharge Diet: Low fat / Low cholesterol, 1800 Calorie Control Diet and 2000 mg Sodium Diet DC O2, CPAP, BIPAP needs Home O2 Discharge instructions: No Dressing / Incision Discharge Activity: Return to Normal Activity Weight Bearing Status: Weight bearing as tolerated Dressing / Incision Call your doctor if you observe: Fever of 101 or Higher, Coldness, Increased Pain, Numbness or Tingling, Change in Color, Inability to urinate, Inability to have a bowel movement, Shortness of breath, Dizziness, Fainting spells, Swelling in the ankles, Chest pain, Prolonged hiccupping, Increased palpitations (irregular heartbeat) and Calf discomfort Follow Up Care When: IN 2 WEEKS Test Results: Test results from this visit will be discussed in further detail at your follow- up appointment, if applicable. Discharge Plan Admission Admit Date/Time: 01/20/25 03:14 Primary Reason for Your Visit: Fever exact etiology unclear, possible viral syndrome. Attending Provider: Timbo Daley Primary Care Provider: Saman Soria Consulting Providers: Tyrone Gross Discharge Orders/Prescriptions Prescriptions: Continued nitroglycerin [Nitrostat] 0.4 mg tablet, sublingual 0.4 mg SUBLINGUAL Q5M PRN (Reason: CHEST PAIN) Patient Comments: X 3 antiarthritic combination no.2 [glucosamine-chondroitin] 900 mg tablet 1 tab PO QDAY metoprolol succinate 50 mg tablet extended release 24 hr 50 mg PO DAILY Qty: 90 Patient Comments: take 1 tablet by mouth once daily glimepiride 4 mg tablet 4 mg PO DAILY Farxiga 5 mg tablet 10 mg PO DAILY aspirin 81 MG tablet,chewable 81 mg PO DAILY Patient Comments: WAS NOT TOLD TO STOP FOR SURGERY atorvastatin 40 mg tablet 40 mg PO QHS Trulicity 4.5 mg/0.5 mL pen injector 4.5 mg subcut QWEEK cholecalciferol (vitamin D3) 125 mcg (5,000 unit) tablet 5,000 unit PO DAILY Held metformin 500 mg tablet extended release 24 hr 500 tablet PO BID Hold Instructions: Hold for 2 days and then resume from 01/23/2025 lisinopril 10 mg tablet 10 mg PO DAILY Qty: 90 3RF Hold Instructions: Hold for 3 days then resume at lower dose probably 5 mg daily and consultation with PCP Referrals / Follow Up: Saman Soria MD [Primary Care Provider] - In 1 Week Disposition Disposition (needs filled in before D/C Order can be placed): Home, Self Care
--- NOTE | 2025-01-21 12:19 | DS.PCM_ITS ---
Providers Date of Admission: 01/20/25 Date of Discharge: 01/21/25 Primary Care Physician: Dr. Saman Soria MD Reason For Visit: SEPSIS OF UNKNOWN ORIGIN, ADR TO METFORMIN, AMS & Diagnosis Discharge Diagnosis (1) Sepsis: Status: Acute Code(s): A41.9 - Sepsis, unspecified organism Qualifiers: Sepsis type: sepsis due to unspecified organism Sepsis acute organ dysfunction status: with acute organ dysfunction Severe sepsis acute organ dysfunction type: encephalopathy Severe sepsis shock status: without septic shock Qualified Code(s): A41.9 - Sepsis, unspecified organism; R65.20 - Severe sepsis without septic shock; G93.41 - Metabolic encephalopathy (2) Leukocytosis: Status: Acute Code(s): D72.829 - Elevated white blood cell count, unspecified Qualifiers: Leukocytosis type: unspecified Qualified Code(s): D72.829 - Elevated white blood cell count, unspecified (3) Lactic acidosis: Status: Acute Code(s): E87.20 - Acidosis, unspecified (4) Fever: Status: Acute Code(s): R50.9 - Fever, unspecified Qualifiers: Fever type: unspecified Qualified Code(s): R50.9 - Fever, unspecified (5) Adverse drug reaction: Status: Acute Code(s): T50.905A - Adverse effect of unspecified drugs, medicaments and biological substances, initial encounter Qualifiers: Encounter type: initial encounter Qualified Code(s): T50.905A - Adverse effect of unspecified drugs, medicaments and biological substances, initial encounter (6) Acute metabolic encephalopathy: Status: Acute Code(s): G93.41 - Metabolic encephalopathy (7) Generalized weakness: Status: Acute Code(s): R53.1 - Weakness (8) Morbid obesity with BMI of 40.0-44.9, adult: Status: Acute Code(s): E66.01 - Morbid (severe) obesity due to excess calories; Z68.41 - Body mass index [BMI] 40.0-44.9, adult (9) Diabetes mellitus: Status: Chronic Code(s): E11.9 - Type 2 diabetes mellitus without complications Qualifiers: Diabetes mellitus type: type 2 Diabetes mellitus complication status: w ithout complication Diabetes mellitus ad terminal makeup operator insulin use: without nursing home use Qualified Code(s): E11.9 - Type 2 diabetes mellitus without complications Plan 69-year-old gentleman was admitted with fever, generalized weakness, lethargy, fever/temperature 102 Fahrenheit, confusion/acute mental status change recording to his . He had problem getting out of chair. Has been urinary incontinent few times on the day of admission. 1. Concern of sepsis most likely viral etiology: Patient had fever, hypotension, leukocytosis and lactic acidosis. BP recorded 85/46, 87/65 x 2. Exact focus unclear. Started on broad-spectrum antibiotic. Chest x-ray shows no acute finding. CT abdomen pelvis no evidence of acute intra-abdominal process. Lactic acid 3.0, repeat 2.6. UA shows negative LE, nitrite, WBC 0-5 RBC 0 cells. Negative bacteria mucus and squamous epithelial cells. TSH normal. Triple PCR for SARS-CoV-2, flu and RSV are negative. Blood culture urine culture pending 01/21: Patient had extensive workup for source of infection but all negative. Urine culture was negative. Blood culture does not show growth so far. As mentioned above chest x-ray and CT abdomen were negative. Patient did not had fever for [address] head does not show acute intracranial abnormality and patient has contraindication of MRI. Patient is back to normal baseline. Discussed the history and hospital course with ID Dr. Hopkins and he agrees that he does not need antibiotic may be a viral etiology. Phlebotomist Supervisor/Instructor was consulted at the time of admission but was not seen. Now his problem is resolved and I do not think he has indication to see gardener florist CKD: Patient baseline creatinine runs around 1.3-1.5. Was admitted with creatinine 1.46. Does not meet criteria for JA. Creatinine improved, 1.14. Advised to hold metformin for 2 more days. Hold lisinopril for 5 days and may resume lower dose. Patient BP has improved 115/73. 2. Confusion as per : Patient himself denies any change in mental status and he said he watched his football game yesterday. He was not confused disoriented and was fully aware of the surroundings. CT head was not done therefore ordered. Patient has titanium plate on the left eyelid therefore contraindication for MRI But before hand will need CT head proceed further At this point I do not see an indication for MRI brain B12 TSH and folic acid normal. Magnesium was low 1.5. Phosphorus normal. Magnesium infusion ordered 01/21: Confusion has resolved. Leukocytosis resolved. 3. Generalized Weakness PT/OT and Case Management to consult and treat on rounds in the AM for further recommendations with help appreciated in advance. 4. Morbid Obesity; with BMI of 42.7 this admission plus BETSY; on CPAP adding to the burden of disease outlined from #1 - #3 - Weight loss will be recommended. Check TSH. Resume nocturnal CPAP. This complicates his case and may hamper recovery. 5. DM-2; of unknown control on metformin, glimepiride, dapagliflozin and dulaglutide adding to the medical complexity of #1 - #4 - ADA diet. FSBS q. AC/HS plus SSI. Check HgbA1c to objectively assess quality of diabetic control. 6. Essential hypertension; on lisinopril and metoprolol - Hold scheduled antihypertensives in light of hypotension outlined in #1. 7. Hyperlipidemia; on atorvastatin - Maintain statin and check Lipid Profile. 8. CAD; s/p stent (2006) - Stable. Resume BASA daily. 9. Chronic venous insufficiency; with lipodermatosclerosis and history of ulceration - Stable. 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 He had reconstruction surgery with [place] on the left eyelid. DVT/GI prophylaxis - Enoxaparin 40 mg sq BID plus SCD's. Pantoprazole 40 mg PO daily. Discharge medication reconciliation done. Discharge follow-up instructions completed. Discharge process discussed with the patient and all questions were answered to patient's satisfaction. Follow with PCP in 1 to 2 weeks Total time spent, exact 35 minutes on discharge meds reconciliation, examination, coordination of care with nurses and ancillary staff, review of imaging and blood test and discussion with the patient on follow-up instructions. Medications at Discharge Home Medications aspirin 81 mg chewable tablet 81 mg PO DAILY 05/05/16 nitroglycerin 0.4 mg sublingual tablet (Nitrostat) 0.4 mg sublingual Q5M PRN CHEST PAIN 10/13/17 antiarthritic combination no.2 900 mg tablet (glucosamine-chondroitin) 1 tab PO QDAY SUPPLEMENT 10/21/17 metoprolol succinate 50 mg tablet,extended release 24 hr 50 mg PO DAILY #90 tabs 05/25/19 metformin 500 mg tablet,extended release 24 hr 500 tablet PO BID 05/28/21 Held on 01/21/25. Instructions: Hold for 2 days and then resume from 01/23/2025 dapagliflozin propanediol 5 mg tablet (Farxiga) 10 mg PO DAILY 12/07/22 glimepiride 4 mg tablet 4 mg PO DAILY 08/23/23 lisinopril 10 mg tablet 10 mg PO DAILY BP #90 tabs 06/06/24 Held on 01/21/25. Instructions: Hold for 3 days then resume at lower dose probably 5 mg daily and consultation with PCP atorvastatin 40 mg tablet 40 mg PO QHS 01/20/25 cholecalciferol (vitamin D3) 125 mcg (5,000 unit) tablet 5,000 unit PO DAILY 01/20/25 dulaglutide 4.5 mg/0.5 mL subcutaneous pen injector (Trulicity) 4.5 mg subcut QWEEK 01/20/25 Physical Exam Narrative Seen and examined. No fever in last 36 hours. Back to baseline. Monitored for 36 hours without antibiotics and no fever Patient was admitted after the report of altered mental status and fever by . Patient denies acute change mental status and he said he went to watch his son football game. He said he maintained his awareness and alertness. He has been weak for last couple weeks. He has chronic urinary incontinence Physical exam: General: Alert, Oriented x3, Cooperative. Morbid is a 43.4 kg/m? 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 Titanium plating left eyelid. Atraumatic, PERRLA, EOMI, Normocephalic. Oral: No Gingival or Mucosal Lesions/ Ulcerations Neck: Supple, No JVD, Negative Carotid Bruits Chest wall/Lungs: Air entry diminished in bilateral lung bases. No crepitation/rhonchi Cardiovascular: Regular rate and rhythm, Normal S1,S2, No M/G/R Abdomen: Bowel Sounds Present, Soft, Non Tender, Non-Distended : No dysuria. No renal angle tenderness. No suprapubic tenderness. Extremities: Bilateral lower leg chronic swelling, Capillary Refill Less than 3 Seconds Skin: Chronic venous edema and varicose veins changes with grayish discoloration and features of venous hypertension Musculoskeletal: No Tenderness to Palpation of Joints or Extremities. ROM restricted Neurological: Cranial nerves II-XII grossly intact, DTR 2+/4. No acute focal neurological deficit. Psych/Mental Status: Normal Affect, Appropriate. Weight / BMI Weight Weight: 289 lb 10.998 oz Body Mass Index (BMI) 44.0 ABG / Lab / Microbiology Data 01/21/25 09:35 01/21/25 09:35 Laboratory: Laboratory Results - last 24 hr 01/20/25 16:24: POC Glucose 160 H 01/20/25 21:49: POC Glucose 143 H 01/21/25 07:35: POC Glucose 108 H 01/21/25 09:35: WBC 7.3, RBC 3.92 L, Hgb 11.9 L, Hct 35.1 L, MCV 89.5, MCH 30.4, MCHC 33.9, RDW Std Deviation 47.8 H, RDW Coeff of Marsha 14.8 H, Plt Count 104 L, MPV 11.4, Immature Gran % (Auto) 0.400, Neut % (Auto) 81.9 H, Lymph % (Auto) 7.8 L, [place] % (Auto) 7.6, Eos % (Auto) 2.2, Baso % (Auto) 0.1, Absolute Neuts (auto) 6.0, Absolute Lymphs (auto) 0.57 L, Nucleated RBC % 0, Sodium 135, Potassium 3.7, Chloride 108, Carbon Dioxide 16.7 L, Anion Gap 10, BUN 15, Creatinine 1.14, Estim Creat Clear Calc 79.82, Est GFR (MDRD) Non-Af 69, BUN/Creatinine Ratio 13.5, Glucose 159 H, Calcium 8.2 01/21/25 11:21: POC Glucose 227 H Microbiology: Microbiology 01/19/25 23:00 Urine, Clean Catch Urine Culture - Final Culture exhibits no growth. 01/19/25 22:49 Mucosa - Nose SARS-CoV-2, Influenza & RSV (PCR) - Final D/C Instructions Discharge Diet: Low fat / Low cholesterol, 1800 Calorie Control Diet and 2000 mg Sodium Diet Weight Bearing Status: Weight bearing as tolerated Call your doctor if you observe: Fever of 101 or Higher, Coldness, Increased Pain, Numbness or Tingling, Change in Color, Inability to urinate, Inability to have a bowel movement, Shortness of breath, Dizziness, Fainting spells, Swelling in the ankles, Chest pain, Prolonged hiccupping, Increased palpitations (irregular heartbeat) and Calf discomfort DC O2, CPAP, BIPAP Needs Home O2 Discharge instructions: No When: IN 2 WEEKS Meaningful Use Info Meaningful Use Meaningful Use Diagnoses (Choose all that apply): None applicable Ischemic Stroke Statin Dosing Therapy Reference: STATIN DOSE THERAPY REFERENCE: * Patients > 75 years receive moderate or high dose statin therapy. * Patients 75 years or YOUNGER should receive HIGH intensity statin dose unless contraindicated. You will be required to document reason for non-treatment if statin daily dose does not meet guidelines. HIGH DOSE STATIN THERAPY DAILY Atorvastatin > than or = to 40 mg Rosuvastatin > than or = to 20 mg Amlodipine + Atorvastatin > than or = to 2.5/40 mg Ezetimibe + Simvastatin 10/80 mg Simvastatin 80mg Discharge Plan Admission Admit Date/Time: 01/20/25 03:14 Primary Reason for Your Visit: Fever exact etiology unclear, possible viral syndrome. Attending Provider: Timbo Daley Primary Care Provider: Saman Soria Consulting Providers: Tyrone Gross Discharge Orders/Prescriptions Prescriptions: Continued nitroglycerin [Nitrostat] 0.4 mg tablet, sublingual 0.4 mg SUBLINGUAL Q5M PRN (Reason: CHEST PAIN) Patient Comments: X 3 antiarthritic combination no.2 [glucosamine-chondroitin] 900 mg tablet 1 tab PO QDAY metoprolol succinate 50 mg tablet extended release 24 hr 50 mg PO DAILY Qty: 90 Patient Comments: take 1 tablet by mouth once daily glimepiride 4 mg tablet 4 mg PO DAILY Farxiga 5 mg tablet 10 mg PO DAILY aspirin 81 MG tablet,chewable 81 mg PO DAILY Patient Comments: WAS NOT TOLD TO STOP FOR SURGERY atorvastatin 40 mg tablet 40 mg PO QHS Trulicity 4.5 mg/0.5 mL pen injector 4.5 mg subcut QWEEK cholecalciferol (vitamin D3) 125 mcg (5,000 unit) tablet 5,000 unit PO DAILY Held metformin 500 mg tablet extended release 24 hr 500 tablet PO BID Hold Instructions: Hold for 2 days and then resume from 01/23/2025 lisinopril 10 mg tablet 10 mg PO DAILY Qty: 90 3RF Hold Instructions: Hold for 3 days then resume at lower dose probably 5 mg daily and consultation with PCP Referrals / Follow Up: Saman Soria MD [Primary Care Provider] - In 1 Week Disposition Disposition (needs filled in before D/C Order can be placed): Home, Self Care Charges/Coding Visit Charges Inpatient E&M: 52635 Disch Hosp >30min
[2025-01-21 13:22] LABS: Erythrocyte Sedimentation Rate 23 mm/hr (0-20)
[2025-01-21] MEDS: Potassium Chloride Oral Tablet 20 MEQ 40 MEQ PO (14:11)
[2025-01-21 16:01] VITALS: BP 112/66; PULSE 80; RESP 16; TEMP 37; O2SAT 99
== END 2025-01-21 16:24 | disposition home or self-care (01) | DRG 871 ==
LOC: ED 01-20 00:17 → ICU 01-20 02:49 → PCU 01-20 15:46
PROVIDERS: Admitting Provider Internal Medicine; Emergency Provider Emergency Medicine; PCP Family Medicine; Visit Provider Internal Medicine
DX: A41.9 Sepsis, unspecified organism (principal); G93.41 Metabolic encephalopathy; E87.20 Acidosis, unspecified; Z68.41 Body mass index [BMI] 40.0-44.9, adult; E11.9 Type 2 diabetes mellitus without complications; I10 Essential (primary) hypertension; M54.17 Radiculopathy, lumbosacral region; I25.10 Atherosclerotic heart disease of native coronary artery without angina pectoris; M48.07 Spinal stenosis, lumbosacral region; E66.01 Morbid (severe) obesity due to excess calories; I87.2 Venous insufficiency (chronic) (peripheral); R65.20 Severe sepsis without septic shock; E78.5 Hyperlipidemia, unspecified; Z79.84 Long term (current) use of oral hypoglycemic drugs; Z92.3 Personal history of irradiation; Z79.82 Long term (current) use of aspirin; Z79.1 Long term (current) use of non-steroidal anti-inflammatories (NSAID); Z79.85 Long-term (current) use of injectable non-insulin antidiabetic drugs; T50.905A Adverse effect of unspecified drugs, medicaments and biological substances, initial encounter; Z95.5 Presence of coronary angioplasty implant and graft
CPT/HCPCS: 36415; 70450; 71045; 74177; 80048; 80053; 80061; 80307; 81001; 82077; 82607; 82746; 82962; 83036; 83605; 83735; 84100; 84443; 85025; 85610; 85652; 85730; 86140; 87040; 87086; 87631; 93005; 94660; 97161; 97165; 99285; Q9967; A4216

== ENCOUNTER → 2025-01-22 | Outpatient (CLI) | payer MEDICARE, SELFPAY ==
--- NOTE | 2025-01-22 13:53 | SP.MBSS_ITS ---
Modified Barium Swallow Patient Information Study Date: 01/22/25 Study Time: 13:00 Direct Billable Minutes: 90 Total Minutes procedure & reportin Diagnosis: Carcinoma of the parotid gland (C07) Referring Physician: Florin Mar Reason for Referral: Objectively assess swallow function, assess risk for aspiration, and determine recommendations for least restrictive diet textures and compensatory strategies to improve safety of swallow. 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 From 06/17/2022 ? 07/29/2022 he completed adjuvant radiation therapy. He followed with outpatient speech therapy to manage mild dysphagia secondary to his cancer of the parotid gland. Patient has participated in MBSS to monitor swallow function (06/05/2022, 10/30/2022, 10/25/2023). Most recent MBSS (10/25/2023) recommended the following diet and strategies: Regular Textures, Thin Liquids - Small Bites, Small Sips (effortful swallows), Slow Rate, Alternate bites/solids and sips/li quids and Sitting upright. It was recommended for patient to repeat MBSS in 6-12 months to continue to monitor swallow function s/p radiation, as pt. is at increased risk for worsening dysphagia and aspiration risk related to [facility] effects of radiation. Current Diet Ordered: Regular textures / Thin liquids Dentition: WNL Mental Status: WNL Respiratory Status: Oxygenating on Room Air Penetration-Aspiration Scale Penetration-Aspiration Scale: OBJECTIVE ASSESSMENT OF SWALLOW FUNCTION (QUANTITATIVE ? PER TRIAL): PENETRATION / ASPIRATION SCALE (HARMAN): 1 = does not enter airway 2 = enters airway/above vocal folds/ejected 3 = enters airway/above vocal folds/not ejected 4 = enters airway/contacts vocal folds/ejected 5 = enters airway/contacts vocal folds/not ejected 6 = enters airway/below vocal folds/ejected 7 = enters airway/below vocal folds/not ejected despite effort 8 = enters airway/below vocal folds/no effort VIDEOFLOROSCOPIC SCALE SCORE (HARMAN): Grade I = aspiration of material that has penetrated into the laryngeal vestibule, intact cough reflex Grade II = aspiration < 10 % of the bolus, intact cough reflex Grade III = aspiration of < 10 % of the bolus, reduced cough reflex or aspiration of > 10 % of the bolus, intact cough reflex Grade IV = aspiration of > 10 % of the bolus, reduced cough reflex Penetration-Aspiration Scale Score Thin Liquid via teaspoon: Result: 1= does not enter airway Thin Liquid via small single sip: cup: Result: 1= does not enter airway Thin Liquid via sequential sips: cup: Result: 1= does not enter airway Thin Liquid via sequential sips:straw: Result: 1= does not enter airway [place] Thick Liquid via small single sip: cup: Result: 1= does not enter airway Honey Thick Liquid via small single sip: cup: Result: 1= does not enter airway Pudding: Result: 1= does not enter airway Cookie: Result: 1= does not enter airway Thin Liquid via small single sip: cup Trial 2: Result: 1= does not enter airway Oral Phase Labial Seal: No Labial Escape Tongue Control During Bolus Hold: Posterior escape of less than half of bolus Bolus Preparation/Mastication: Slow prolonged chewing/mashing with complete recollection Bolus Transport/Lingual Motion: Delayed initiation of tongue motion Oral Residue: Trace residue lining oral structures Pharyngeal Phase Initiation of Pharyngeal Swallow: Bolus head in pyriforms (noted with thin by straw seq.) Soft Palate Elevation: No bolus between soft palate and pharyngeal wall Laryngeal Elevation: Comp. Superior move thyroid cart w/comp. apprx arytenoid cart-epig pet Anterior Hyoid Excursion: Partial anterior movement Epiglottic Movement: Complete inversion Laryngeal Vestibule Closure at Height of Swallow: Incomplete; narrow column of air/contrast in laryngeal vestibule Pharyngeal Stripping Wave: Present - diminished Pharyngoesophageal Segment Opening: Parital distension and partial duration; parital obstruction of flow Tongue Base Retraction: Wide column of contrast between tongue base & post. pharyngeal wall Pharyngeal Residue: Collection of residue within or on pharyngeal structures Esophageal Phase Esophageal Clearance: Complete clearance Diagnosis/Impression Diagnosis: Mild oropharyngeal dysphagia R13.12 Impression: Overall, there were no significant changes in swallow function compared to the previous MBSS. Premature spillage was noted with large, sequential sips, while smaller sips demonstrated improved bolus control. No aspiration or penetration was observed across all consistencies. Increased pharyngeal residue was noted with thicker viscosities. FOOD BROKER provided cues for an additional dry swallow, which effectively reduced residue in the vallecula. With solid consistencies, the patient benefited from both an additional dry swallow and a liquid wash. Recommendations Diet: Regular Textures and Thin Liquids Compensatory Strategies: Small Bites, Small Sips, Slow Rate, Multiple Swallows, Alternate bites/solids and sips/liquids and Sitting upright Recommend Repeat Modified Barium Swallow: Yes Comment: Plan for repeat MBSS in 6-12 months to continue to monitor swallow function s/p radiation, as pt is at increased risk for worsening dysphagia and aspiration risk related to [facility] effects of radiation. Need for Skilled Speech Therapy Services: No Education Completed: 1. Described result of evaluation. Status Active ST Patient: Active Contact Information [facility] Speech Therapy:: Keely Keys M.A. [facility] Speech-Language Pathologist [facility] [address] [place] [address] [email or web address] [phone]
== END | disposition home or self-care (01) ==
LOC: RAD 13:03
PROVIDERS: PCP Family Medicine; Referring Provider Student in an Organized Health Care Education/Training Program; Visit Provider Student in an Organized Health Care Education/Training Program
DX: C07 Malignant neoplasm of parotid gland (principal)
CPT/HCPCS: 74230; 92611

== ENCOUNTER → 2025-02-01 | Outpatient (CLI) | payer MEDICARE, SELFPAY ==
[2025-02-01 18:15] LABS: Absolute Lymphocyte Count 1.11 X10^3/uL (0.83-4.51); Absolute Neutrophil Count 5.9 X10^3/uL (2.0-7.7); Basophil# 0.04 X10^3/uL; Basophil% 0.5 % (0-1); Eosinophil# 0.31 X10^3/uL; Eosinophils% 3.9 % (0-5); Hematocrit 39.1 % (40-54); Hemoglobin 12.9 g/dL (13.0-16.5); Lymphocyte # 1.11 X10^3/ul (0.83-4.51); Lymphocyte % 14.1 % (19-41); Mean Corpuscular Hgb 29.7 pg (27.0-32.0); Mean Corpuscular Volume 90.1 fL (80-94); Mean Platelet Vol. 11.8 fl (6.2-12.0); Monocyte# 0.53 X10^3/uL; Monocyte% 6.7 % (0-10); NRBC Flagged by Analyzer 0 % (0-5); Neutrophil # 5.87 X10^3/uL (2.7-7.7); Neutrophil % 74.3 % (47-70); Platelet Count 190 K/mm3 (150-450); RBC Distribution Width CV 14.5 % (11.6-14.6); RBC Distribution Width SD 47.6 fl (35.1-43.9); Red Blood Count 4.34 M/mm3 (4.6-6.2); White Blood Count 7.9 K/mm3 (4.4-11.0)
[2025-02-01 18:25] LABS: ALB/GLOB Ratio 1.3 RATIO (0.9-2.4); AST(SGOT) 22 U/L (<=37); Alanine Aminotransfer ALT/SGPT 27 U/L (<=46); Albumin, Serum 3.9 g/dL (3.4-4.8); Alkaline Phosphatase 108 U/L (40-129); Anion Gap 13 (5-15); BUN 22 mg/dL (4-19); BUN/Creat Ratio 17.5 RATIO (10-20); Calcium,Total 9.1 mg/dL (7.6-11.0); Carbon Dioxide 18.2 mmol/L (21.0-32.0); Chloride 106 mmol/L (98-108); Creatinine, Serum 1.24 mg/dL (0.70-1.20); EST Glomerular Filtration Rate 63 (>60); Globulin 2.9 g/dL (2.2-4.2); Glucose 185 mg/dL (70-99); Potassium 4.1 mmol/L (3.3-5.1); Protein, Total 6.9 g/dL (5.9-8.4); Sodium Level 137 mmol/L (133-145); Total Bilirubin 0.69 mg/dL (0.00-1.30)
== END | disposition home or self-care (01) ==
LOC: MFPLAB 15:14
PROVIDERS: PCP Family Medicine; Referring Provider Family Medicine; Visit Provider Family Medicine
DX: N18.30 Chronic kidney disease, stage 3 unspecified (principal)
CPT/HCPCS: 36415; 80053; 85025

== ENCOUNTER → 2025-03-22 | Outpatient (CLI) | payer MEDICARE, SELFPAY ==
[2025-03-22 10:33] LABS: Hematocrit 40.3 % (40-54); Hemoglobin 13.4 g/dL (13.0-16.5); Immature Granulocytes Count 0.030 X10^3/uL (0.0-0.0); Mean Corp Hgb Conc 33.3 g/dL (32-36); Mean Corpuscular Volume 87.4 fL (80-94); Mean Platelet Vol. 12.1 fl (6.2-12.0); NRBC Flagged by Analyzer 0 % (0-5); Platelet Count 164 K/mm3 (150-450); RBC Distribution Width CV 14.5 % (11.6-14.6); RBC Distribution Width SD 46.5 fl (35.1-43.9); Red Blood Count 4.61 M/mm3 (4.6-6.2); White Blood Count 7.2 K/mm3 (4.4-11.0)
[2025-03-22 11:30] LABS: Creatinine, Urine (random) 68.90 mg/dL (39.00-259.00); PTHIN 47 pg/mL (11-61)
[2025-03-22 11:31] LABS: Microalbumin,Random Urine < 12.0 mg/L (NO RANGE EST.)
[2025-03-22 11:40] LABS: AST(SGOT) 19 U/L (<=37); Alanine Aminotransfer ALT/SGPT 22 U/L (<=46); Albumin, Serum 3.9 g/dL (3.4-4.8); Alkaline Phosphatase 125 U/L (40-129); Anion Gap 14 (5-15); BUN 20 mg/dL (4-19); BUN/Creat Ratio 15.7 RATIO (10-20); Calcium,Total 9.3 mg/dL (7.6-11.0); Carbon Dioxide 19.0 mmol/L (21.0-32.0); Chloride 105 mmol/L (98-108); Cholesterol 127 mg/dL (<=200); Globulin 2.8 g/dL (2.2-4.2); Glucose 184 mg/dL (70-99); Low Density Lipoprotein Calc. 73 mg/dL; Potassium 4.3 mmol/L (3.3-5.1); Triglycerides 112 mg/dL; Very Low Density Lipoprotein 22 mg/dL (5-40); Vitamin D,25 Hydroxy 54.6 ng/mL (30-100); cholesterol:hdl ratio screen 4.02
== END | disposition home or self-care (01) ==
LOC: MFPLAB 08:23
PROVIDERS: PCP Family Medicine; Referring Provider Family Medicine; Visit Provider Family Medicine
DX: E11.8 Type 2 diabetes mellitus with unspecified complications (principal); N18.30 Chronic kidney disease, stage 3 unspecified; E55.9 Vitamin D deficiency, unspecified
CPT/HCPCS: 36415; 80053; 80061; 82043; 82306; 82570; 83036; 83970; 85025

== ENCOUNTER → 2025-06-14 | Outpatient (CLI) | payer MEDICARE, SELFPAY ==
[2025-06-14 12:31] LABS: Hematocrit 40.9 % (40-54); Hemoglobin 13.5 g/dL (13.0-16.5); Immature Granulocytes Count 0.030 X10^3/uL (0.0-0.0); Mean Corp Hgb Conc 33.0 g/dL (32-36); Mean Corpuscular Volume 86.7 fL (80-94); Mean Platelet Vol. 12.1 fl (6.2-12.0); NRBC Flagged by Analyzer 0 % (0-5); Platelet Count 149 K/mm3 (150-450); RBC Distribution Width CV 15.0 % (11.6-14.6); RBC Distribution Width SD 46.8 fl (35.1-43.9); Red Blood Count 4.72 M/mm3 (4.6-6.2); White Blood Count 6.4 K/mm3 (4.4-11.0)
[2025-06-14 12:53] LABS: AST(SGOT) 16 U/L (<=37); Alanine Aminotransfer ALT/SGPT 18 U/L (<=46); Albumin, Serum 3.9 g/dL (3.4-4.8); Alkaline Phosphatase 124 U/L (40-129); Anion Gap 15 (5-15); BUN 16 mg/dL (4-19); BUN/Creat Ratio 13.8 RATIO (10-20); Calcium,Total 9.2 mg/dL (7.6-11.0); Carbon Dioxide 20.4 mmol/L (21.0-32.0); Chloride 104 mmol/L (98-108); Cholesterol 131 mg/dL (<=200); Globulin 2.7 g/dL (2.2-4.2); Glucose 196 mg/dL (70-99); Low Density Lipoprotein Calc. 73 mg/dL; Potassium 4.2 mmol/L (3.3-5.1); Triglycerides 104 mg/dL; Very Low Density Lipoprotein 21 mg/dL (5-40); Vitamin D,25 Hydroxy 66.4 ng/mL (30-100); cholesterol:hdl ratio screen 3.55
[2025-06-14 13:52] LABS: Creatinine, Urine (random) 93.90 mg/dL (39.00-259.00); Microalbumin,Random Urine < 12.0 mg/L (<20 mg/L)
[2025-06-15 13:08] LABS: PSA, Free 1.36 ng/mL; PSA, Free % 27.3 % (.); PSA, Total Ultrasensitive 4.980 ng/mL (0.000-4.000)
== END | disposition home or self-care (01) ==
LOC: MFPLAB 10:02
PROVIDERS: PCP Family Medicine; Referring Provider Family Medicine; Visit Provider Family Medicine
DX: E55.9 Vitamin D deficiency, unspecified (principal); E11.22 Type 2 diabetes mellitus with diabetic chronic kidney disease; E11.69 Type 2 diabetes mellitus with other specified complication; N18.30 Chronic kidney disease, stage 3 unspecified; R97.20 Elevated prostate specific antigen [PSA]
CPT/HCPCS: 80053; 80061; 82043; 82306; 82570; 83036; 84153; 84154; 85025